=== PATIENT | female | born 1980 | race Caucasian/White ===

== ENCOUNTER 2024-07-05 14:11 | Emergency (ER) | payer OTHER, SELFPAY ==
--- OUTSIDE RECORDS SUMMARY | 2024-07-05 14:21 | XMS_ITS | Continuity of Care Document ---
Author Organization [facility] Address [address] [facility] [facility] [address] [phone] Care Team Providers Care Manager Search Name Role Phone Karen Díaz Primary Care Physician Encounter [facility] Financial Number [id number] Date(s): 04/07/23 - 04/07/23 [facility] [address] [phone] Encounter Diagnosis Anxiety and depression(Discharge Diagnosis) - 04/07/23 LEVI (obstructive sleep apnea)(Discharge Diagnosis) - 04/07/23 Hypothyroidism(Discharge Diagnosis) - 04/07/23 GERD (gastroesophageal reflux disease)(Discharge Diagnosis) - 04/07/23 Discharge Disposition: Home or Self Care Attending Physician: Karen Díaz DO Allergies, Adverse Reactions, Alerts Substance Reaction Severity Status gabapentin Physical aggression: aggressive or combative to self and others (for example, hits self, throws objects, punches, dangerous maneuvers with wheelchair or other objects) Combative reaction Active Assessment and Plan Future Appointments Appointment Date:06/10/2023 11:00:00 AM Scheduled Provider:Karen Díaz DO Location:[facility] Appointment Type:CC EP Established Patient Immunizations Given and Recorded Vaccine Date Status Refusal Reason SARS-CoV-2 (COVID-19) mRNA BNT-162b2 vax 04/24/21 Recorded SARS-CoV-2 (COVID-19) mRNA BNT-162b2 vax 04/03/21 Recorded Medications albuterol 90 mcg/inh inhaler 2 puff(s), Inhalation, g1lbcms, PRN, 1 each, Inhaler, 11, 11, shortness of breath, Route to Pharmacy Electronically, [id number], [id number]_[id number], 170, cm, 01/02/2021 0936, Height, 137.8, kg,01/02/2021 0936, Weight Start Date: 01/02/21 Status: Ordered DULoxetine 60 mg oral capsule 60 mg, 1 capsule(s), Oral, daily, 30 capsule(s), Capsule(s), 5, 5, [id number] [id number], 168, cm, 03/14/23 13:03:00 CDT, Height, 1 40.5, kg, 03/14/23 13:03:00 CDT, Weight Start Date: 03/14/23 Status: Ordered ibuprofen 200 mg oral tablet 2-4 tablets, Oral, [id number], PRN, 120 tablet(s), Tablet(s), 0, for pain Start Date: 03/14/23 Status: Ordered levothyroxine 75 mcg (0.075 mg) oral tablet 1 tablet(s), Oral, daily before breakfast, 30 tablet(s), 5, 5, [id number] [id number], 168, cm, 03/14/23 13:03:00 CDT, Height, 140.5, kg, 03/14/23 13:03:00 CDT, Weight Start Date: 03/14/23 Status: Ordered Gauri 0.25mg-35mcg oral tablet 1 tablet(s), Oral, daily, 84 tablet(s), 3, 3, [id number] NCPDP_[id number], 176, cm, 09/07/2022 1456, Height, 137.2, kg, 09/07/2022 1456, Weight Start Date: 09/10/22 Status: Ordered omeprazole 20 mg oral delayed release tablet 20 mg, 1 tablet(s), Oral, daily, 0 Start Date: 02/17/22 Status: Ordered Vitamin D3 5000 intl units oral capsule 5,000 unit(s), 1 capsule(s), Oral, daily, 90 capsule(s), Capsule(s), 3, 3, Route to Pharmacy Electronically, [facility][id number], [id number]_[id number], 175, cm, 02/17/2022 1439, Height, 143, kg, [id number], Weight Start Date: 03/03/22 Status: Ordered Problem List Condition Confirmation Course Effective Dates Status H ealth Status Informant Allergic rhinitis Confirmed Active BMI 40.0-44.9, adult Confirmed Active Obesity, Class III, BMI 40-49.9 (morbid obesity) Confirmed Active Low HDL (under 40) Confirmed Active Chronic back pain Confirmed Active Osteoarthritis, hand Confirmed Active Diarrhea Confirmed Active Electrolyte and fluid disorder Confirmed Active CRP elevated Confirmed Active Exercise-induced asthma Confirmed Active GERD (gastroesophageal reflux disease) Confirmed Active Bilateral hand pain Confirmed Active Hyperlipidemia Confirmed Active Hyperuricemia Confirmed Active Hypothyroidism Confirmed Active Metabolic syndrome Confirmed Active Class 3 obesity Confirmed Active Obstructive sleep apnea Confirmed Active LEVI (obstructive sleep apnea) Confirmed Active Exercise counseling Confirmed Active Dietary counseling and surveillance Confirmed Active Encounter for long-term current use of medication Confirmed Active Left shoulder pain Confirmed Active Hepatic steatosis Confirmed Active Stress Confirmed Active Hypovitaminosis D Confirmed Active Procedures Procedure Date Related Diagnosis Body Site Status Colonoscopy 2019 Completed Excision of uterine polyp [address] [place] [address] Vital Signs Most recent to oldest [Reference Range]: 1 Temperature Temporal Artery [35.8-38 Deg C] 36.2 DegC (04/07/23 2:55 PM) Peripheral Pulse Rate [60-100 bpm] 74 bp m (04/07/23 2:55 PM) Respiratory Rate [14-22 br/min] 16 br/mi n (04/07/23 2:55 PM) Blood Pressure [89-139/60-90 mm Hg] 108/ 68mm Hg (04/07/23 2:55 PM) Oxygen Flow Rate 0 L/min (04/07/23 2:55 PM) Height 170 cm (04/07/23 2:55 PM) Weight 140.9 kg (04/07/23 2:55 PM) Social History Social History Type Response Alcohol Former alcohol user, Household alcohol concerns: No. Substance Abuse Never drug user, [facility] substance abuse concerns: No. Smoking Status Former smoker;Never; Tobacco Cessation Counseling Requested N/A; Concerns about tobacco use in household: No; Smoker in household: No; Number of years: 2; entered on: 05/07/22 Sex Hospital Discharge Instructions Patient Education 04/07/2023 15:17:12 Continuous Positive Airway Pressure (CPAP) Continuous Positive Airway Pressure (CPAP) Your healthcare provider has prescribed continuous positive airway pressure (CPAP) therapy for you.A CPAP??device helps you breathe better at night. The device sends air through your nose or mouth when you breathe in. This keeps your air passages open. CPAP is: ???Used most often to treat sleep apnea and some other problems. Sleep apnea is a long-term (chronic) condition. You have periods of sleep where you briefly stop breathing. ???Safe and works well. But it takes time to get used to the mask. Your healthcare provider, nurse, or medical supplier will give you tips for wearing and caring for your CPAP device. General guidelines Advice includes the following: ???It's very important not to??give up! It takes time to get used to wearing the mask at night. ???Practice using your CPAP device during the day. Do this whenever you take a nap. ???Remember, there are several different types of masks. If you can???t get used to your mask, ask your provider or medical supply company about trying another style. ???If you have nasal stuffiness or dryness when using your CPAP device, talk with your provider or medical supply company. There are ways to ease these problems. For example, your provider may adviseusing a moistening nasal spray. Or the medical supply company may advise a device with a humidifier. ???The goal is to use your??CPAP all night, every night, and during all naps. Use it even when you travel. ???Keep your mask clean. Wash it with soap and water. Be sure to rinse the mask and tubing well with water to remove any soap. Let them air-dry fully before using. ???Make yourself comfortable when sleeping with CPAP. Try using extra pillows. Work with your [employer] supply company so that you know how to correctly use your CPAP. The company's tax representative will be able to help you: ???Use the CPAP correctly ???Troubleshoot any problems that come up ???Learn to clean and maintain the device ???Get used to regular use of the CPAP ?? The CPAP device settings are given as centimeters of water (cm/H2O). Each person???s pressure settings are different. Your healthcare provider will tell you what settings to use. Never change your CPAP pressure setting unless your provider tells you to. CPAP cm/H20 pressure when you breathe in ?? The [employer]. All rights reserved. This information is not intended as a substitute for professional medical care. Always follow your healthcare professional's instructions. 04/07/2023 15:17:10 Healthy Sleep Habits Healthy Sleep Habits What is normal sleep? The normal amount of sleep varies depending on your child's age. Age Average nighttime sleep Average daytime sleep to 3 months 8 to 9 hours(waking through the night to feed) 8 hours 6 to 12 months 10 to 12 hours (often sleeps through the night) 5 hours 2 years 10 to 12 hours 4 hours (fewer naps after 12 months of age) 3 years 10 hours 1 hour 4 to 6 years 10 hours Often no nap Helpful tips for healthy sleep habits Here are some helpful tips for creating good sleep habits for your child: ???Newborns don't have a set night or day schedule for the first few weeks of life. It's best for anewborn not to sleep longer than 5 hours at a time in the first 5 to 6 weeks, as their small bodiesneed frequent feedings. ???Older babies and children should have a consistent nap time and bedtime schedule. ???Start a quiet time, such as listening to soft music or reading a book, 20 to 30 minutes before bedtime. Put away any screens during quiet time. This means no TV, smartphones, tablets, or computers. ???After quiet time, follow a bedtime routine, such as a diaper change, going to the bathroom, and brushing teeth. ???Set a time limit for quiet time and the routine so it doesn't drag on and your child knows what to expect before bedtime. ???Say cj, turn off the light, and leave the room. ???Security objects, such as a special blanket or stuffed animal, can be part of the bedtime routine. ???It's important for children to be put to bed awake so they learn to fall asleep themselves. ???Don't put babies to bed with a bottle. It causes problems with tooth decay and ear infections. Helpful tips for children with poor sleep habits Children can easily fall into bedtime habits that are not always healthy habits. The following suggestions can help when a child doesn't want to go to bed or is having trouble staying in bed: ???If your child cries, speak calmly and reassure them, You are fine. It's time to go to sleep. Then leave the room. ???Don't give a bottle or pharmacy picking tech your child. ???Stretch out the time between trips to the room if your child continues. Don't do anything but talk calmly and leave. ???Your child will calm down and go to sleep if you stick to this routine. It may take several nights for your child to get used to the new plan. ???If your child is used to getting a large amount of milk right at bedtime, start to cut down the amount of milk in the bottle by 1/2 to 1 ounce each night until the bottle is empty. Then take it away completely. ???Sometimes children get out of their routine of night sleeping because of an illness or travel. Quickly return to good sleep habits when things are back to normal. Sometimes older children go through a stage when they revert back to bad sleep habits or develop new problems in going to sleep. Here are some tips to help parents with older children who have problems going to bed: ???If your child gets out of bed, take them back to bed with a warning that the door will be shut (not locked) for??1 or??2 minutes if they get out of bed. ???If your child stays in bed, the door stays open. If your child gets out of bed, the door is closed for??2 minutes. Your child can understand that they have control of keeping the door open by staying in bed. ???If your child gets out again, shut the door for??3 to??5 minutes (no more than??5 minutes). ???Be consistent. Put your child back in bed each time they get out of bed. ???When your child stays in bed, open the door and give them praise (for example, You are doing a great job of staying in bed. Cj. ???Your child can be rewarded by earning a star on a calendar for staying in bed all night. You cangive a special prize for a certain number of stars earned. Reducing the risk for SIDS (sudden syndrome) and other sleep- related deaths Here are recommendations from the [place] [employer] (AAP) on how to reduce the risk for??sudden syndrome (SIDS) and sleep-related deaths from to age 1: ???Make sure your baby is immunized. An infant who is fully immunized reduces their risk for SIDS.?Breastfeed your baby. The AAP advises breastmilk only for at least the first 6 months.?Place your baby on their back for all sleeping until they are 1 year old. This can decrease the risk for SIDS, getting food or milk into the lungs (aspiration), and choking. Never place your baby on their side or stomach for sleep or naps. If your baby is awake, allow your child time on their tummy as long as you are supervising, to decrease the chances that your child will develop a flat head. ???Always talk with your baby's doctor before raising the head of the crib if they have been diagnosed with gastroesophageal reflux. ???Offer your baby a pacifier for sleeping or naps if they aren't breastfed. If , delay introducing a pacifier until has been firmly established. ???Use a firm mattress (covered by a tightly fitted sheet) to prevent gaps between the mattress andthe sides of a crib, a play yard, or a bassinet. This can decrease the risk for entrapment, suffocation, and SIDS. ???Share your room instead of your bed with your baby. Putting your baby in bed with you raises therisk for strangulation, suffocation, entrapment, and SIDS. Bed sharing is not advised for twins or other higher multiples. The AAP advises that babies sleep in the same room as their parents, close to their parent's bed, but in a separate bed or crib appropriate for babies. This sleeping arrangement is advised ideally for the baby's first year. But it should at least be done for the first 6 months. ???Don't use infant seats, car seats, strollers, infant carriers, and infant swings for routine sleep and daily naps. These may lead to blockage of an 's airway or suffocation. If your baby falls asleep in the car, don't be tempted to leave them in the car seat when you get home. Put your baby in the crib as soon as you get home. ???Don't place babies on a couch or armchair for sleep. Sleeping on a couch or armchair puts the baby at much higher risk of , including SIDS. ???Don't use illegal drugs and alcohol. Don't smoke during or after . ???Don't smoke. And keep your baby away from others who are smoking and places where others smoke. Don't let anyone smoke in your house. ???Don't over-bundle, overdress, or cover your baby's face or head. This will prevent them from getting overheated, reducing the risks for SIDS. ???Don't use loose bedding or soft objects. Bumper pads, pillows, comforters, and blankets shouldn't be used in an infant's crib or bassinet to help prevent suffocation, strangulation, entrapment, orSIDS. ???Don't use cardiorespiratory monitors and commercial devices. Wedges, positioners, and special mattresses shouldn't be used to help decrease the risk for SIDS and sleep-related deaths. ???Always place cribs, bassinets, and play yards in hazard-free areas. Keep them away from danglingcords, wires, or window coverings to reduce the risk??for strangulation.?Prevent all exposure to smoke, alcohol, and illegal drugs. ?? 5042-3952 The [employer]. All rights reserved. This information is not intended as a substitute for professional medical care. Always follow your healthcare professional's instructions. 04/07/2023 15:17:09 Hypothyroidism Hypothyroidism You have hypothyroidism. This means your thyroid gland is not making enough thyroid hormone. This hormone is vital to body growth and metabolism. If you don???t make enough, many body processes slow down. This can cause symptoms throughout the body. Hypothyroidism can range from mild to severe. Themost severe form is called myxedema. There are a number of causes of hypothyroidism. A common cause is Ariella???s disease. This disease causes the body???s own immune system to attack the thyroid gland. When you have certain treatments, such as surgery to remove the thyroid gland, this can also cause hypothyroidism. Sometimes the thyroid gland is not functioning because of lack of stimulation from the pituitary gland. Symptoms of hypothyroidism can include: ???Fatigue ???Trouble concentrating or thinking clearly; forgetfulness ???Dry skin ???Hair loss ???Weight gain ???Low tolerance to cold ???Constipation ???Depression ???Personality changes ???Tingling or prickling of the hands or feet ???Heavy, absent, or irregular periods (women only) Older adults may sometimes have other symptoms. These can include: ???Muscle aches and weakness ???Confusion ???Incontinence (unable to control urine or stool) ???Trouble moving around ???Falling Treatment for hypothyroidism involves taking thyroid hormone pills daily. These pills replace the hormone your thyroid doesn???t make. You will likely??need to take a daily pill for the rest of your life. Tips for taking this medicine are given below. Home care Tips for taking your medicine ???Take your thyroid hormone pills as prescribed by your healthcare provider. This is most often 1 pill a day on an empty stomach. Use a pillbox labeled with the days of the week. This will help you remember to take your pill each day. ???Don???t take products that contain iron and calcium or antacids within 4 hours of taking your thyroid hormone pills. ???Don???t take other medicines with your thyroid hormone pill without checking with your provider first. ???Tell your provider if you have any side effects from your medicines that bother you, especially any chest pain or irregular heartbeats. ???Never change the dosage??or stop taking your thyroid pills without talking to your provider first. General care ???Always talk with your provider before trying other medicines or treatments for your thyroid problem. ???If you see other healthcare providers, be sure to let them know about your thyroid problem. ???Let your healthcare provider know if you become because your dose of thyroid hormone will need to be adjusted. Follow-up care See your healthcare provider for checkups as advised. You may need regular tests to check the levelof thyroid hormone in your blood. When to seek medical advice Call your healthcare provider right away if any of these occur: ???New symptoms develop ???Symptoms return, continue, or worsen even after treatment ???Extreme fatigue ???Puffy hands, face, or feet ???Fast or irregular heartbeat ???Confusion Call 911 Call 911 if any of these occur: ???Fainting ???Chest pain ???Shortness of breath or trouble breathing ?? 1116-5529 [employer]. All rights reserved. This information is not intended as a substitute for professional medical care. Always follow your healthcare professional's instructions. 04/07/2023 15:17:08 Anxiety Reaction Anxiety??Reaction Anxiety is the feeling we all get when we think something bad might happen. It is a normal responseto stress and normally causes only a mild reaction. When anxiety becomes more severe, it can??interfere with daily life. In some cases, you may not even be aware of what you???re anxious about. Theremay also be a genetic link. Or it may be a learned behavior in the home. Both psychological and physical triggers cause stress reaction. It's often a response to fear or emotional stress, real or imagined. This stress may come from home, family, work, or social relationships. During an anxiety reaction, you may feel: ???Helpless ???Nervous ???Depressed ???Grouchy Your body may show signs of anxiety in many ways. You may experience: ???Dry mouth ???Shakiness ???Dizziness ???Weakness ???Trouble breathing ???Breathing fast (hyperventilating) ???Chest pressure ???Sweating ???Headache ???Nausea ???Diarrhea ???Tiredness ???Inability to sleep ???Sexual problems Home care ???Try to find the sources of stress in your life. They may not be obvious. These may include: oDaily hassles of life (such as traffic jams, missed appointments, or car troubles) oMajor life changes, both good (new baby or job promotion) and bad (loss of job or loss of loved one) oOverload (feeling that you have too many responsibilities and can't take care of all of them at once) oFeeling helpless or feeling that your problems can't be solved ???Notice how your body reacts to stress. Learn to listen to your body signals. This will help you take action before the stress becomes severe. ???When you can, do something about the source of your stress. (Avoid hassles, limit the amount of change that happens in your life at one time, and take a break when you feel overloaded). ???Unfortunately, many stressful situations can't be avoided. It is necessary to learn how to better manage stress. There are many proven methods that will reduce your anxiety. These include simple things such as exercise, good nutrition, and adequate rest. Also, there are certain techniques that are helpful: oRelaxation oBreathing exercises oVisualization oBiofeedback oMeditation For more information about this, talk with your healthcare provider. Or check online or at your local library or bookstore. You'll find many books and audiobooks on this subject. Follow-up care If you feel your anxiety is not responding to self-help measures, call your healthcare provider or make an appointment with a counselor. You may need short- term psychological counseling or medicine to help you manage stress. Call 911 Call 911 if any of these happen: ???Trouble breathing ???Confusion ???Drowsiness or trouble waking up ???Fainting or loss of consciousness ???Rapid heart rate ???Seizure ???New chest pain that becomes more severe, lasts longer, or spreads into your shoulder, arm, neck,jaw, or back When to get medical advice Call your healthcare provider right away if any of these happen: ???Your symptoms get worse ???Severe headache not eased by rest and mild pain reliever ?? 2591-3378 The [employer]. All rights reserved. This information is not intended as a substitute for professional medical care. Always follow your healthcare professional's instructions. Note * Event Display: Patient Provided Clipboard Authored Date: [id number] Ambulatory Comprehensive Intake Ambulatory Comprehensive IntakeOriginating Source: PATIENTOriginating Author: KAYLA Cerna Submission Date: October 03, 2020 9:45:07 AM -06:00 KAYLA METZGER : 1980 Sex: Female MRN(s): [id number] Ambulatory Comprehensive Intake Question Response Advance Directive Advance Directive Date Location of Advance Directive Type of Advance Directive Patient has Court Appointed Guardian No Location of Court Appointed Guardian Documentation Legal Guardian Medical Power of Operating Room Manager Name Patient Requests Counseling Regarding Advance Directives History of Falling in Last 3 Months, Including Since Admission No Impaired Judgment/Lack of Safety Awareness No Agitation No Impaired Gait, Shuffle, Wide Base, Unsteady Walk No Ever Experience Dizziness or Vertigo No Ever Wet or Soil Yourself on Way to Bathroom No Medical Devices None Market Development Trainer Card Other Market Development Trainer Details Radiology Testing Barriers/Precautions None Menstrual Status Last Menstrual Period 2020-09-12 Previous LMP Date Last Menstrual Period Description Irregular periods, Heavy flow Menarche Onset Menarche Frequency Menarche Length Menstrual Comments PAP result HPV Coping Stressors Emotional Support Available Do You Receive Comfort From Spiritual Practices No [facility] Preference Spiritual Practice Comments Weight Change >10lbs Yes Fever No Fatigue Yes Difficulty Sleeping Yes Blood Transfusion No Blood in semen/sperm (men) No Inability to have an erection Inability to reach climax Infertility Painful intercourse Decreased sexual desire Sexually Transmitted Diseases ROS Visual Changes (Not Glasses) Dizziness No Double vision No Sinus problems Yes Frequent persistent nosebleeds No Ear pain No Trouble hearing No Ringing in Ears No Hoarseness Yes Persistent sore throat No Mouth sores No Swollen glands (Frequent) No Breast pain/lumps No Pelvic Pain No Vaginal discharge No Vaginal dryness No Frequent sweats/hot flashes No Menstrual problems Yes Menopause No Problems No Baby weighing 9lbs or more No Stop breathing during sleep No Shortness of Breath No Coughing up blood No Wheezing No Cough No Sore Throat No Gout No Back Pain (Major) No Neck Pain (Major) No Weakness of arm or leg No Joints Swelling/Stiffness Yes Deformities of Back/Extremities No Chest pain/tightness No Irregular rapid heart beat No Smothering feeling at night No Ankle swelling No Numbness or tingling No Severe frequent headaches No Abnormal coordination No Trouble with speech No Forgetfulness/confusion No Black/Bloody stools No Nausea/Vomiting (Frequent) No Frequent heart burn/acid (GERD) Yes Abdominal pain No Diarrhea (Frequent) Yes Constipation No Difficulty swallowing No Vomiting blood No Changes in hair/hair loss No Major skin problems No Wounds that will not heal No Persistent rash No Changes in moles No UTI No Urinary Incontinence No Urinary Hesitancy No Urinary Urgency No Frequent Urination No Nocturia No Dysuria No Hematuria No Urinary Retention No Feeling blue/discouraged Yes High anxiety/stress Yes Loss of friends No Feeling life has no purpose No Feeling others are talking about you Yes Feeling fear Yes Hearing voices No Marital or relationship problems No 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 Was previously on Vitamin D, thyroid med and control. May need anti- depressant - have taken duloxetine in the past.Also want to discuss weight gain. Pain Present Yes actual or suspected pain Numeric Rating Pain Scale 3 Primary Pain Location Generalized Primary Pain Comments Was dx with fibromyalgia years ago. Duloxetine had helped a bit. Gabapentin cannot be prescribed - I apparently get mean. I also was dx about a year ago with arthritis in my hands. Also more pain in back and knees since recent weight gain. Internal medicine Outpatient Note * Karen Díaz DO: PERFORM Event Display: Internal Medicine Office/Clinic Note Authored Date: [id number] Patient Information Name:KAYLA MARTIN Address: [address] [place] [phone] Sex:Female Date of :1980 Emergency Contact:LUCAS MARTIN Location:[facility] Registration Date and Time:04/07/2023 15:00 CDT Primary Care Physician: Karen Díaz DO, Attending Physician: Karen Díaz DO, Chief Complaint Mood f/u History of Present Illness Patient is a 42 y.o. female here to follow up on: 1) Anxiety and depression- at her last visit her duloxetine was increased from 30mg to 60mg. She isstill struggling with her work.?? She is looking for a new job and had a good phone interview. She is planning to quit after the semester ends in three weeks.?? 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 Her PHQ9 score is 14 today, down from 24. 2) ELVI-She has struggled with her APAP.?? Her is very worried about her apneic spells. She wants to call medical supply to try a different mask.?? Last night was the first night she slept allnight with her mask on. 3) Thyroid- TSH Latest Result TSH, Highly Sensitive: 3 uIU/mL (10/21/22)?? She is currently on levothyroxine 75mcg. She is still feeling down and fatigued at times. 4) GI-she has an EGD scheduled for this fall.?? She felt it was a good consult. Review of Systems ?CONSTITUTIONAL ? Fever?No.? Chills?No.?? Fatigue?Yes.?? Decreased appetite?No.?? Have you lost or gained weight in the past year?Yes.?? Recent Illness?No.? EYES ? Change in Vision?No.?? Glasses or contacts?Yes.? ENT ? Problems hearing?No.?? Ear pain?No.?? Sore Throat?No.?? Hoarse voice?No.? Sinus pain?Yes.?? Post nasal drip?No.?? Runny nose?No.?? Congestion?No.?Allergies-YES ? CARDIOVASCULAR ? Chest Pain?No.?? Swelling in Legs?No.?? Skipping heart beats?No.?? Palpitations?No? RESPIRATORY ? Cough?No.?? Shortness of Breath while resting?No.? GASTROINTESTINAL ? Blood in stool?No.?? Constipation?No.?? Diarrhea?Yes.?? Swallowing problems?No.?? Reflux?Yes.?? Nausea?No.?? Vomiting?No.?? Abdominal pain?No.? GENITOURINARY ? Problems urinating?No.? NEUROLOGY ? Dizziness?No.?? Headaches?No.?Snoring-YES ? PSYCHIATRIC ? Depression?Yes.?? Feel like hurting someone?No.?? Feel like hurting yourself?No.?? Problems with memory?No.?? Anxiety?Yes.?? Problems concentrating?No.?? Problems sleeping?Yes.?? Vitals and Measurements Vital Signs Height: 170 cm Height Inches Conversion: 66.9 Weight: 140.9 kg Weight in Pounds (kg conversion): 310 Body Surface Area: 2.5795 m2 Body Mass Index: 48.75 kg/m2 Temperature Temporal Artery: 36.2 DegC Systolic Blood Pressure: 108 mm Hg Diastolic Blood Pressure: 68 mm Hg Peripheral Pulse Rate: 74 bpm Respiratory Rate: 16 br/min Oxygen Saturation: 97 % Oxygen Flow Rate: 0 L/min HRA Pain Present: No Physical Exam GENERAL APPEARANCE: well developed and well nourished, in no acute distress. EYES: sclera clear. HEENT: Head - normocephalic/atraumatic, CARDIOVASCULAR: regular rate and rhythm, normal S1S2, no murmurs, click or rubs. RESPIRATORY: normal breath sounds, no wheezes, rhonchi, rales. GASTROINTESTINAL: soft, bowel sounds: normal, no masses palpated, no hepatosplenomegaly, not tender, non-distended. NEUROLOGIC EXAM: alert and oriented x 3. SKIN: unremarkable. PSYCH: appropriate mood and affect.?? Good insight and judgement.?? Assessment/Plan 1.??Anxiety and depression Chronic.?? Improving.?? Still not at personal goal.?? Will continue on 60mg of duloxetine. Try meditation, yoga, writing in a journal or making a video journal, and stress management.?? Daily exercise may help augment mood treatment.?? Recommend seeing a counselor as well to help manage mood. Call 911 or seek emergency medical care for thoughts of SI/HI. Ordered: .59061 Office Visit Level 4 Est ?? 2.??LEVI (obstructive sleep apnea) Chronic.?? Not well controlled.?? Not tolerating the APAP.?? Will recommend getting a new mask fromthe medical supply. Ordered: .81105 Office Visit Level 4 Est ?? 3.??Hypothyroidism Stable.?? Chronic.?? Asymptomatic. Please continue to take your medication first thing in the morning with water only.?? Avoid other medications, dairy products, or supplements for at least 30 minutes. Please let us know if you start to experience: unintentional weight changes, heat or cold intolerance, palpitations/racing heart, anxiety, depression, changes in sleep habits, swelling, diarrhea, or constipation.?? Please let us know if you have noted any swelling of the eyes, hair loss, or nail changes.?? Ordered: .32165 Office Visit Level 4 Est ?? 4.??GERD (gastroesophageal reflux disease) Chronic.?? Not well controlled.?? Planning on an EGD with GI later this fall. Keep a diary of symptoms.?? Avoid triggers: laying down after eat, eating a large or heavy meal, wearing tight clothing around the upper abdomen, eating spicy or highly acidic foods, alcohol, caffeine, mint, and chocolate, and NSAIDs.?? For daily symptoms, may need to try an H2 maxx or PPI daily.?? Additionally, may benefit from seeing a sand blaster and getting an EGD if symptoms are not able to be well controlled with lifestyle changes and medications.?? For intermittent (1-2x month)symptoms, may try rolaids or tums for symptom relief.?? Call 911 or seek emergency medical care for gross blood in the stool, black stools (melena), or hematemesis (throwing up what looks like blood/coffee grounds).? Ordered: .[id number] Office Visit Level 4 Est ?? Follow Up Follow Up with??Karen Díaz DO When??Within 1 month [facility] [address] [facility] [place] [address]- Problem List/Past Medical History Ongoing Allergic rhinitis Bilateral hand pain BMI 40.0-44.9, adult Chronic back pain Class 3 obesity CRP elevated Diarrhea Dietary counseling and surveillance Electrolyte and fluid disorder Encounter for long-term current use of medication Exercise counseling Exercise-induced asthma GERD (gastroesophageal reflux disease) Hepatic steatosis Hyperlipidemia Hyperuricemia Hypothyroidism Hypovitaminosis D Left shoulder pain Low HDL (under 40) Metabolic syndrome Obesity, Class III, BMI 40-49.9 (morbid obesity) Obstructive sleep apnea LEVI (obstructive sleep apnea) Osteoarthritis, hand Stress Historical BMI 45.0-49.9, adult Procedure/Surgical History ???Colonoscopy (2019)???Excision of uterine polyp (2015) Medications Unchanged albuterol (albuterol 90 mcg/inh inhaler)2 puff(s) Inhalation every 4 hours as needed shortness of breath. Refills: 11. cholecalciferol (Vitamin D3 5000 intl units oral capsule)1 capsule(s) By mouth daily. Refills: 3. DULoxetine (DULoxetine 60 mg oral capsule)1 capsule(s) By mouth daily. Refills: 5. ethinyl estradiol-norgestimate (Gauri 0.25mg-35mcg oral tablet)1 tablet(s) By mouth daily. Refills: 3. ibuprofen (ibuprofen 200 mg oral tablet)2-4 tablets By mouth every 8 hours as needed for pain. levothyroxine (levothyroxine 75 mcg (0.075 mg) oral tablet)1 tablet(s) By mouth daily before breakfast. Refills: 5. omeprazole (omeprazole 20 mg oral delayed release tablet)1 tablet(s) By mouth daily. 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 Workplace hazards: Sitting toomuch., 10/02/2020 Home/Environment Lives with Spouse. Living situation: Home/Independent. Alcohol abuse in household: No. Substance abuse in household: No. Feels unsafe at home: No., 04/29/2021 Nutrition/Health Type of diet: Poor, but trying to eat better. Caffeine intake amount: Soda,Tea: 2-3x's/wk. Diet restrictions: None., 10/02/2020 Oral Health 2yrs ago-no concerns, 10/02/2020 Sexual Sexually active: Yes. Sexual orientation: Heterosexual. Uses condoms: No., 10/02/2020 Substance Abuse Never drug user, Household substance abuse concerns: No., 03/14/2023 Tobacco Former smoker, Smokeless Tobacco use: Never. N/A Cessation Counseling. 2 year(s). Household tobaccoconcerns: No. Smoker in household: No., 05/07/2022 Family History ?Father ?Positive ?Hyperlipidemia ?Father ?Positive ?Hypertension ?Father ?Positive ?Diabetes ?Sister ?Positive ?Crohn's disease ?Grandmother ?Positive ?Dementia ?Grandfather ?Positive ?Cancer ?Grandmother ?Positive ?Cancer ?Grandfather ?Positive ?Diabetes ?Grandfather ?Positive ?Heart disease ?Mother ?Positive ?Snoring ?Father ?Positive ?Snoring ?Sister ?Positive ?Snoring ?Brother ?Positive ?Snoring ?Father ?Positive ?Diabetes mellitus ? POC Results Event Name?? Event Result?? Date/Time?? Oxygen Flow Rate 0 L/min 04/07/23 14:55:00 Oxygen Saturation 97 % 04/07/23 14:55:00 ? Voice to Text Technology Disclaimer This note may contain text inserted via Dragon or other voice to text assistive technology and stripper and taper, variances may occur. Patient Care team information Care Team Personnel Name: Karen Díaz DO Position: Physician - Internal Medicine Member Role: Primary Care Physician Address: Address: [address] [place] [phone] Name: Anel Man C Position: AMB SHIPPING LEAD PERSON/PA Member Role: Nurse Practitioner Address: Address: [address] [facility] [address] [place] [phone] Name: Berenice Ivory Electrical Contacts Adjuster Position: Population Health Coordinator Member Role: Population Health Coordinator Name: Karen Díaz DO Position: Physician - Internal Medicine Med Service: Gun Repair Clerk Manager Search Role: Attending Physician Address: Address: [address] [place] [address] [address] [place], [place] [id number] Care Team Related Persons Name: LUCAS MARTIN Address: home [address] [facility], [phone]
--- OUTSIDE RECORDS SUMMARY | 2024-07-05 14:21 | XMS_ITS | Continuity of Care Document ---
Author Organization [place] [facility] Address [address] [facility] [address] [phone] Care Team Providers Care Churn Driller Helper Name Role Phone Karen Díaz Primary Care Physician Encounter [facility] Financial Number [id number] Date(s): 05/16/24 - 05/16/24 Leann Davison [facility] [address] [phone] Discharge Disposition: Home or Self Care Allergies, Adverse Reactions, Alerts Substance Criticality Severity Reaction Reaction Severity Status gabapentin Physical aggres ada: aggressive or combative to self and others (for example, hits self, throws objects, punches, dangerous maneuvers with wheelchair or other objects) Combative reaction Active Assessment and Plan Future Appointments Appointment Date:07/30/2024 01:30:00 PM Scheduled Provider:Anabelle Kaufman LINER INSTALLER Location:[facility] Appointment Type:CC EP Established Patient Immunizations Given and Recorded Vaccine Date Status Refusal Reason rabies vaccine, human diploid cell 03/30/24 Record ed rabies vaccine, human diploid cell 03/23/24 Record ed SARS-CoV-2 (COVID-19) mRNA BNT-162b2 vax 04/24/21 Recorded SARS-CoV-2 (COVID-19) mRNA BNT-162b2 vax 04/03/21 Recorded Medications albuterol 90 mcg/inh inhaler 2 puff(s), Inhalation, [id number], PRN, 1 each, Inhaler, 11, 11, shortness of breath, Route to Pharmacy Electronically, [facility]/pharmacy #[id number], NCPDP_[id number], 170, cm, 01/02/2021 0936, Height, 137.8, kg,01/02/2021 0936, Weight Start Date: 01/02/21 Status: Ordered DULoxetine 60 mg oral capsule 60 mg, 1 capsule(s), Oral, daily, 30 capsule(s), Capsule(s), 5, 5, Route to Pharmacy Electronically, [facility] [place] [facility], [id number], 176, cm, 04/24/24 13:28:00 CDT, Height, 139.5, kg, 04/24/24 13:28:00 CDT, Weight Start Date: 04/24/24 Status: Ordered ibuprofen 200 mg oral tablet 2-4 tablets, Oral, [id number], PRN, 120 tablet(s), Tablet(s), 0, for pain Start Date: 03/14/23 Status: Ordered levothyroxine 75 mcg (0.075 mg) oral tablet 1 tablet(s), Oral, daily before breakfast, 30 tablet(s), 5, 5, Route to Pharmacy Electronically, [facility] [place] [facility], [id number], 176, cm, 02/10/24 10:50:00 CDT, Height, 143.18, kg, 02/10/24 10:50:00 CDT, Weight Start Date: 02/10/24 Status: Ordered Gauri 0.25mg-35mcg oral tablet 1 tablet(s), Oral, daily, 84 tablet(s), 3, 3, Route to Pharmacy Electronically, [facility] [place] [facility], [id number], 176, cm, 12/09/23 10:52:00 CDT, Height, 143.8, kg, 12/09/23 10:52:00 CDT, Weight Start Date: 12/09/23 Status: Ordered omeprazole 20 mg oral delayed release tablet 20 mg, 1 tablet(s), Oral, daily, 90 tablet(s), Tab EC, 3, 3, Route to Pharmacy Electronically, [facility] [place] [facility], [id number], 176, cm, 02/10/24 10:50:00 CDT, Height, 143.18, kg, 02/10/24 10:50:00 CDT, Weight Start Date: 02/10/24 Status: Ordered Vitamin D3 5000 intl units oral capsule See Instructions, 30 capsule(s), 0, TAKE 1 CAPSULE BY MOUTH DAILY, Route to Pharmacy Electronically, [id number], [id number], Instructions Replace Required Details, 176,cm, 02/10/24 10:50:00 CDT, Height, 143.18, kg, 02/10/24 10:50:00 CDT, Weight Start Date: 04/20/24 Status: Ordered Wellbutrin XL 150 mg/24 hours oral tablet, extended release 150 mg, 1 tablet(s), Oral, daily, 100 tablet(s), Tab SR 24 HR, 3, 3, Route to Pharmacy Electronically, [facility] [id number] [facility], [id number], 176, cm, 04/24/24 13:28:00 CDT, Height, 139.5, kg, 04/24/24 13:28:00 CDT, Weight Start Date: 04/24/24 Status: Ordered Problem List Condition Confirmation Course Effective Dates Status H ealth Status Informant Adult ADHD Confirmed Active Allergic rhinitis Confirmed Active De Quervain's tenosynovitis, bilateral Confirmed Active Obesity, Class III, BMI 40-49.9 (morbid obesity) Confirmed Active Bilateral carpal tunnel syndrome Confirmed Active Low HDL (under 40) Confirmed Active Chronic back pain Confirmed Active Osteoarthritis, hand Confirmed Active Diarrhea Confirmed Active Electrolyte and fluid disorder Confirmed Active CRP elevated Confirmed Active Exercise-induced asthma Confirmed Active GERD (gastroesophageal reflux disease) Confirmed Active Bilateral hand pain Confirmed Active Hyperlipidemia Confirmed Active Hyperuricemia Confirmed Active Hypothyroidism Confirmed Active Intolerant of cold Confirmed Active Metabolic syndrome Confirmed Active Class 3 obesity Confirmed Active Obstructive sleep apnea Confirmed Active LEVI (obstructive sleep apnea) Confirmed Active Heart palpitations Confirmed Active Exercise counseling Confirmed Active Dietary counseling and surveillance Confirmed Active Encounter for long-term current use of medication Confirmed Active Prediabetes Confirmed Active Left shoulder pain Confirmed Active Hepatic steatosis Confirmed Active Stress Confirmed Active Hypovitaminosis D Confirmed Active Procedures Procedure Date Related Diagnosis Body Site Status Colonoscopy 2019 Completed Excision of uterine polyp [address] [place] [address] Social History Social History Type Response Alcohol Former alcohol user, Household alcohol concerns: No. 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 Workplace hazards: Sitting too much. Home/Environment Lives with Spouse. L iving situation: Home/Independent. Alcohol abuse in household: No. Substance abuse in household: No. Feels unsafe at home: No. Nutrition/Health Type of diet: Poor, but trying to eat better. Caffeine intake amount: Soda,Tea: 2-3x's/wk. Diet restrictions: None. Sexual Sexually active: Yes . Sexual orientation: Heterosexual. Uses condoms: No. Substance Abuse Never drug user, Gilda ryne substance abuse concerns: No. Smoking Status Former smoker;Never; Tobacco Cessation Counseling Requested N/A; Concerns about tobacco use in household: No; Smoker in household: No; Number of years: 2; entered on: 06/10/23 Sex Note * Event Display: Patient Provided Clipboard Authored Date: [id number] Ambulatory Comprehensive Intake Ambulatory Comprehensive IntakeOriginating Source: PATIENTOriginating Author: KAYLA Cerna Submission Date: October 03, 2020 9:45:07 AM -06:00 KAYLA METZGER : 1980 Sex: Female MRN(s): [id number] Ambulatory Comprehensive Intake Question Response Advance Directive Advance Directive Date Location of Advance Directive Type of Advance Directive Patient has Court Appointed Guardian No Location of Court Appointed Guardian Documentation Legal Guardian Medical Power of Fiscal Assistant Name Patient Requests Counseling Regarding Advance Directives History of Falling in Last 3 Months, Including Since Admission No Impaired Judgment/Lack of Safety Awareness No Agitation No Impaired Gait, Shuffle, Wide Base, Unsteady Walk No Ever Experience Dizziness or Vertigo No Ever Wet or Soil Yourself on Way to Bathroom No Medical Devices None Phone Counselor Card Other Phone Counselor Details Radiology Testing Barriers/Precautions None Menstrual Status Last Menstrual Period 2020-09-12 Previous LMP Date Last Menstrual Period Description Irregular periods, Heavy flow Menarche Onset Menarche Frequency Menarche Length Menstrual Comments PAP result HPV Coping Stressors Emotional Support Available Do You Receive Comfort From Spiritual Practices No Anabaptism Preference Spiritual Practice Comments Weight Change >10lbs [...] voices No Marital or relationship problems No 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 Patient Care team information Care Team Personnel Name: Flammang, Karen C DO Position: Physician - Internal Medicine Member Role: Primary Care Physician Address: Address: [address] [place] [address] [place] [phone] [place] Care Team Related Persons Name: LUCAS MARTIN Address: [address], [phone]
--- OUTSIDE RECORDS SUMMARY | 2024-07-05 14:21 | XMS_ITS | Continuity of Care Document ---
Author Organization [facility] [place] Address [address] [facility] [address] [phone] Care Team Providers Care Camera Technician Name Role Phone Karen Díaz Primary Care Physician Encounter [facility] Financial Number [id number] Date(s): 04/24/24 - 04/24/24 [facility] [address] [address] [id number] Encounter Diagnosis Hypothyroidism(Discharge Diagnosis) - 04/24/24 Adult ADHD(Discharge Diagnosis) - 04/24/24 Anxiety and depression(Discharge Diagnosis) - 04/24/24 Fibromyalgia(Discharge Diagnosis) - 04/24/24 LEVI (obstructive sleep apnea)(Discharge Diagnosis) - 04/24/24 Heart palpitations(Discharge Diagnosis) - 04/24/24 Bilateral carpal tunnel syndrome(Discharge Diagnosis) - 04/24/24 De Quervain's tenosynovitis, bilateral(Discharge Diagnosis) - 04/24/24 Discharge Disposition: Home or Self Care Attending Physician: Karen Díaz DO Allergies, Adverse Reactions, Alerts Substance Criticality Severity Reaction Reaction Severity Status gabapentin Physical aggres ada: aggressive or combative to self and others (for example, hits self, throws objects, punches, dangerous maneuvers with wheelchair or other objects) Combative reaction Active Assessment and Plan Future Appointments Appointment Date:05/11/2024 08:45:00 AM Scheduled Provider:Vladimir Duke MD Location:[facility] Sleep Med Appointment Type:[facility] EP CPAP Established Patient Appointment Date:07/30/2024 01:30:00 PM Scheduled Provider:Anabelle Kaufman NP Location:[facility] Med Appointment Type:CC EP Established Patient Immunizations Given and Recorded Vaccine Date Status Refusal Reason rabies vaccine, human diploid cell 03/30/24 Record ed rabies vaccine, human diploid cell 03/23/24 Record ed SARS-CoV-2 (COVID-19) mRNA BNT-162b2 vax 04/24/21 Recorded SARS-CoV-2 (COVID-19) mRNA BNT-162b2 vax 04/03/21 Recorded Medications albuterol 90 mcg/inh inhaler 2 puff(s), Inhalation, [id number], PRN, 1 each, Inhaler, 11, 11, shortness of breath, Route to Pharmacy Electronically, [facility][id number][id number], 170, cm, 01/02/2021 0936, Height, 137.8, kg,01/02/2021 0936, Weight Start Date: 01/02/21 Status: Ordered DULoxetine 60 mg oral capsule 60 mg, 1 capsule(s), Oral, daily, 30 capsule(s), Capsule(s), 5, 5, Route to Pharmacy Electronically, [facility] [address] [facility], [id number], 176, cm, 04/24/24 13:28:00 CDT, Height, 139.5, kg, 04/24/24 13:28:00 CDT, Weight Start Date: 04/24/24 Status: Ordered ibuprofen 200 mg oral tablet 2-4 tablets, Oral, [id number], PRN, 120 tablet(s), Tablet(s), 0, for pain Start Date: 03/14/23 Status: Ordered levothyroxine 75 mcg (0.075 mg) oral tablet 1 tablet(s), Oral, daily before breakfast, 30 tablet(s), 5, 5, Route to Pharmacy Electronically, [facility] [address] [place] [facility], [id number], 176, cm, 02/10/24 10:50:00 CDT, Height, 143.18, kg, 02/10/24 10:50:00 CDT, Weight Start Date: 02/10/24 Status: Ordered Gauri 0.25mg-35mcg oral tablet 1 tablet(s), Oral, daily, 84 tablet(s), 3, 3, Route to Pharmacy Electronically, [facility] [address] [place] [facility], [id number], 176, cm, 12/09/23 10:52:00 CDT, Height, 143.8, kg, 12/09/23 10:52:00 CDT, Weight Start Date: 12/09/23 Status: Ordered omeprazole 20 mg oral delayed release tablet 20 mg, 1 tablet(s), Oral, daily, 90 tablet(s), Tab EC, 3, 3, Route to Pharmacy Electronically, [facility] [address] [place] [facility], [id number], 176, cm, 02/10/24 10:50:00 CDT, Height, 143.18, kg, 02/10/24 10:50:00 CDT, Weight Start Date: 02/10/24 Status: Ordered Vitamin D3 5000 intl units oral capsule See Instructions, 30 capsule(s), 0, TAKE 1 CAPSULE BY MOUTH DAILY, Route to Pharmacy Electronically, [facility] [address], [id number], Instructions Replace Required Details, 176,cm, 02/10/24 10:50:00 CDT, Height, 143.18, kg, 02/10/24 10:50:00 CDT, Weight Start Date: 04/20/24 Status: Ordered Wellbutrin XL 150 mg/24 hours oral tablet, extended release 150 mg, 1 tablet(s), Oral, daily, 100 tablet(s), Tab SR 24 HR, 3, 3, Route to Pharmacy Electronically, [facility] [address] [place] [facility], [id number], 176, cm, 04/24/24 13:28:00 CDT, Height, 139.5, [...] Colonoscopy 2019 Completed Excision of uterine polyp [address] [place] [address] Vital Signs Most recent to oldest [Reference Range]: 1 Temperature Temporal Artery [35.8-38 Deg C] 36.5 DegC (04/24/24 1:28 PM) Peripheral Pulse Rate [60-100 bpm] 88 bp m (04/24/24 1:28 PM) Blood Pressure [89-139/60-90 mm Hg] 132/ 82mm Hg (04/24/24 1:28 PM) Height 176 cm (04/24/24 1:28 PM) Weight 139.5 kg (04/24/24 1:28 PM) Social History Social History Type Response Alcohol Former alcohol user, Household alcohol concerns: No. 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 Workplace hazards: Sitting too much. Home/Environment Lives with Spouse. L iving situation: Home/Independent. Alcohol abuse in household: No. Substance abuse in household: No. Feels unsafe at home: No. Nutrition/Health Type of diet: Poor, but trying to eat better. Caffeine intake amount: Soda,Tea: 2-3x's/wk. Diet restrictions: None. Sexual Sexually active: Yes . Sexual orientation: Heterosexual. Uses condoms: No. Substance Abuse Never drug user, Gilda duong substance abuse concerns: No. Smoking Status Former smoker;Never; Tobacco Cessation Counseling Requested N/A; Concerns about tobacco use in household: No; Smoker in household: No; Number of years: 2; entered on: 06/10/23 Sex Hospital Discharge Instructions Patient Education 04/24/2024 13:54:33 Understanding Carpal Tunnel Syndrome Understanding Carpal Tunnel Syndrome The carpal tunnel is a narrow space inside the wrist. It is ringed by bone and a band of tough tissue called the transverse carpal ligament. A major nerve called the median nerve runs from the forearm into the hand through the carpal tunnel. Tendons also run through the carpal tunnel. With carpal tunnel syndrome, the tendons or nearby tissues within the carpal tunnel may swell or thicken. Or the transverse carpal ligament may harden and shorten. This narrows the space in the carpal tunnel and puts pressure on the median nerve. This pressure leads to tingling and numbness of the hand and wrist. In time, the condition can make even simple tasks hard to do. What causes carpal tunnel syndrome? Healthcare providers aren???t entirely sure why the condition occurs. Certain things may make a person more likely to have it. These include: ??? Being female ??? Being ??? Being overweight ??? Having diabetes or rheumatoid arthritis ??? Doing certain motions over and over (repetitive) Symptoms of carpal tunnel syndrome Symptoms often come and go. At first, symptoms may occur mainly at night. Later, they may be noticed during the day as well. They may get worse with activities such as driving, reading, typing, or holding a phone. Symptoms can include: ??? Tingling and numbness in the hand or wrist ??? Sharp pain that shoots up the arm or down to the fingers ??? Hand stiffness or cramping, especially in the morning ??? Trouble making a fist ??? Hand weakness and clumsiness Treatment for carpal tunnel syndrome Certain treatments help reduce the pressure on the median nerve and relieve symptoms. Choices for treatment may include 1 or more of the following: ??? Wrist splint. This involves wearing a special brace on the wrist and hand. The splint holds thewrist straight, in a neutral position. This helps keep the carpal tunnel as open as possible. ??? Cortisone shots. Cortisone is a medicine that helps reduce swelling. It is injected directly into the wrist. It helps shrink tissues inside the carpal tunnel. This relieves symptoms for a time. ??? Pain medicines. You may take [id number] or prescription medicines to help reduce swellingand relieve symptoms. ??? Surgery. If the condition doesn???t respond to other treatments and doesn???t go away on its own, you may need surgery. During surgery, the surgeon cuts the transverse carpal ligament to relieve pressure on the median nerve. When to call your healthcare provider Call your healthcare provider right away if you have any of these: ??? Fever of 100.4??F (38??C) or higher, or as directed ??? Symptoms that don???t get better, or get worse ??? New symptoms ?? 4834-7460 [employer]. All rights reserved. This information is not intended as a substitute for professional medical care. Always follow your healthcare professional's instructions. 04/24/2024 13:54:30 Treating De Quervain Tenosynovitis Treating De Quervain Tenosynovitis The goal of your treatment is to ease your pain and allow you to use your thumb again. Treatment will depend on how??bad the pain is. Nonsurgical Treatment Just taking a break from the activities that caused your pain may be enough. Your??healthcare??provider??may also have you take nonsteroidal, anti- inflammatory drugs (NSAIDs) such as ibuprofen. You may also wear a splint for a few weeks to rest the thumb and wrist. To ease swelling, your??healthcare provider??may inject an anti-inflammatory medicine such as cortisone around the tendons. You may have more pain at first. But in a few days your thumb should feel better. Surgery If other kinds of treatment don???t??ease your pain, or if the pain is??bad, you may need surgery. The sheath that surrounds the tendons is released so the tendons can move more easily. This helps reduce the inflammation. It also allows you to straighten your thumb without pain. Surgery is done with local or regional anesthetic on an outpatient basis.??So you can go home the same day. You will likely have a splint or dressing on your wrist for a few days while the tissue heals. You may need physical therapy to help strengthen muscles. Your??healthcare provider??will talk with you about the risks and possible complications of surgery. The surgery releases the protective sheath, creating more space for the tendons. This allows them to move more freely and relieves inflammation. ?? 3744-2592 [employer]. All rights reserved. This information is not intended as a substitute for professional medical care. Always follow your healthcare professional's instructions. 04/24/2024 13:45:31 Fibromyalgia Fibromyalgia Fibromyalgia is a chronic condition.??It causes pain and tenderness in connective tissues and muscles. Often, there are also many tender areas throughout the body.??Symptoms may also include stiffness and feelings of numbness and tingling. Symptoms may be worse upon waking up. They may increase with poor sleep, heavy activity, cold or damp weather, anxiety, or stress. People with fibromyalgia often feel tired. They may have trouble sleeping. Other symptoms include morning stiffness, headaches, and painful menstrual periods. Some people have problems with thinking clearly and changes in memory. The cause of fibromyalgia is not known.??Symptoms are similar to that of other diseases.??These include rheumatoid arthritis, low thyroid, chronic fatigue syndrome, and Lyme disease.??In some cases, these diseases may occur together. Fibromyalgia is often treated with medicines. You and your healthcare provider can discuss the medicine that may work best for you.??You may have to try more than one medicine or combination of medicines before you find what works for you. Home care ???If your??healthcare provider??has prescribed or recommended medicines, take them as directed. ???Rest as needed. Try to get enough sleep. If you have trouble sleeping, discuss this with your healthcare provider.?Be active. Regular exercise can help manage symptoms. Some options include walking, swimming, and biking. Strengthening and aerobic exercises may also be helpful. Talk to your healthcare provider about the best ways to be active. ???Follow a healthy diet. Limit caffeine and alcohol. If you smoke, ask your??healthcare provider for help to stop. ???Notice how your body reacts to stress. Learn to listen to your body signals. This will help you take action before the stress becomes severe. ???Learn relaxation techniques. Also consider joining a stress reduction program or class. ???Talk to your healthcare provider about trying complementary treatments. These include acupuncture, hypnosis, and biofeedback. Yoga and eva chi may be helpful. ???Ask your healthcare provider about cognitive behavioral therapy (CBT). This type of counseling can??help people with fibromyalgia cope better with their illness. Follow-up care Follow up with your healthcare provider, or as advised. In many cases, fibromyalgia is best treatedwith a team approach. ??This may involve your primary care provider, a program writer, a physical therapist, and??a mental health professional.?? For more information, visit the??National [place] of Arthritis and Musculoskeletal and Skin Diseases (NIAMS) website at??www.niams.nih.gov or call 427-704-6778. When to seek medical advice Contact your healthcare provider right away if any of these occur: ???Symptoms get worse or new symptoms develop ???You feel hopeless, helpless, or lose interest in day-to-day life ?? 5870-0521 [employer]. All rights reserved. This information is not intended as a substitute for professional medical care. Always follow your healthcare professional's instructions. 04/24/2024 13:45:28 Hypothyroid (HOODDM) Hypothyroidism You have been diagnosed with hypothyroidism. This means your thyroid gland is not producing enough thyroid hormone. This hormone is important to body growth and metabolism. If you don't have enough, many body processes slow down, causing mental and physical sluggishness. A variety of other symptomsmay occur and vary from mild to severe. The most severe form of this illness is called myxedema. Signs Of Hypothyroidism (too little thyroid hormone): ??? Fatigue or sluggishness ??? Difficulty concentrating or thinking clearly; forgetfulness ??? Dry skin, hair loss ??? Depression ??? Unexpected weight gain ??? Feeling cold, or cold hands and/or feet Signs Of Hyperthyroidism (too much thyroid hormone, which can be a side effect of treatment for lowthyroid): ??? Restlessness, nervousness ??? Increased appetite with weight loss ??? Excess sweating ??? Palpitations or irregular heartbeat ??? Feeling overheated Home Care: Take your medicine exactly as directed at the same time every day. After taking your thyroid medicine: ??? Wait 2-4 hours before eating or drinking anything that contains calcium and/or iron. Do not stop treatment on your own. If you do, your symptoms will return. Follow Up with your doctor or as advised by our staff. Your thyroid level will need to be monitored for the rest of your life. During your routine visits, tell your doctor about any symptoms such as the ones listed below. Get Prompt Medical Attention if any of the following occur: ??? Extreme fatigue ??? Puffy hands, face, or feet ??? Chest pain or trouble breathing ??? Palpitations or irregular heartbeat ??? Confusion or loss of consciousness ?? 8464-0122 [facility], [address] [place] [address], [place] [address]. All rights reserved. This information is not intended as a substitute for professional medical care. Always follow your healthcare professional's instructions. 04/24/2024 13:45:28 Continuous Positive Airway Pressure (CPAP), Discharge Instructions (LIZZETH) Continuous Positive Airway Pressure (CPAP) Your doctor has prescribed continuous positive airway pressure (CPAP) therapy for you. A CPAP unit is a device that helps you breathe better at night. Using your CPAP device can be a morton part of yourtreatment for sleep apnea and other problems. CPAP is safe and highly effective, but it can take time to get used to the mask. Your doctor or medical supplier will give you tips for wearing and caring for your CPAP device. Here???s what you need to know about using CPAP. General Guidelines ?? Don???t give up! It takes time to get used to wearing the mask at night. ?? Practice wearing your CPAP device during the day, especially whenever you take a nap. ?? Remember, there are several different types of masks. If you can???t get used to your mask, ask your doctor about trying another style. One of them should work for you. ?? Take your medications exactly as directed. Your doctor may prescribe a nasal spray to help open your nasal passages while you are using your CPAP device. ?? Wear CPAP all night, every night, during all naps, and when you travel. ?? If you lose or gain weight, ask your doctor to adjust the air pressure level of your CPAP. ?? Keep your mask clean. Wash it often. Be sure to rinse the mask and tubing well with water to remove any soap. Let them air-dry thoroughly before using. ?? Make yourself comfortable when sleeping with CPAP. Try using extra pillows. Setting Up ?? Place the CPAP device on a sturdy table near your bed. ?? Plug in the power cord. ?? Connect the tubing to the machine. ?? Arrange the headgear so that the longer straps are at the top. ?? With the Velcro facing out (away from your face), put the four tabs through the top and side slots of the mask. Pull the straps through and press the Velcro back against the strap. Using CPAP ?? Put the mask over your nose and slide the headgear over your head. ?? Adjust the Velcro straps, slowly pulling them until the mask is secure against your face. ?? Connect the tubing to your mask and turn on the switch. ?? Lie down, relax, and breathe through your nose. Follow-Up Make a follow-up appointment as directed by our staff. Getting Used to CPAP CPAP takes some getting used to. If there???s anything about CPAP you don???t like, chances are there???s a solution. Below are a few examples of common problems and possible solutions. If this happens: Try this: Air pressure is uncomfortable ?? Try the device???s ramp feature, which starts out at low pressure and slowly raises pressure to your prescribed level. ?? Try a bilevel or autoCPAP device. Discomfort in your nose ?? Try a saline nasal spray. Ask your healthcare provider about trying an antihistamine, decongestant, or prescription nasal spray. ?? Ask for a prescription warm-air humidifier for your device. Adjust the humidification if you already use it. ?? Try a mask that sends air through the mouth instead of the nose. ?? Keep in mind that even if you do nothing, nasal stuffiness may go away within a month. Discomfort in your mouth ?? Try a chin strap to keep the mouth closed while you sleep. ?? Try a mask that covers both nose and mouth. ?? Connect a prescription warm-air humidifier to your device. Adjust the humidification. Discomfort in your eyes, or CPAP works less well than before ?? Adjust your headgear to stop air leaks from around the mask. ?? Replace your mask with one that fits better, is a different size, or fits inside your nostrils. Mask is uncomfortable ?? Adjust fit and tightness of mask and headgear. ?? Put cushions at pressure points. ?? Try a mask of a different style or size. ?? Ask your provider about nasal pillows. ?? If the mask irritates your skin, try a mask of a different material. Air pump is too loud ?? Use a longer hose so the device can go on the floor or under the bed. ?? Ask the device supplier for advice. ?? Try a different CPAP device. Keep in mind that any device???s sound is quieter and easier to tune out than snoring. When to Call Your Doctor Call your doctor right away if you have any of the following: ?? Ear pain that feels worse when you use the CPAP device ?? Ear infection ?? Chest pain ?? Trouble breathing ?? 7833-7512 [facility], [address] [place] [address], [place] [address]. All rights reserved. This information is not intended as a substitute for professional medical care. Always follow your healthcare professional's instructions. 04/24/2024 13:45:27 Anxiety Reaction Anxiety??Reaction Anxiety is the feeling [...] by rest and mild pain reliever ?? 8444-6560 [employer]. All rights reserved. This information is not intended as a substitute for professional medical care. Always follow your healthcare professional's instructions. Note * Event Display: Patient Provided Clipboard Authored Date: [id number] Ambulatory Comprehensive Intake Ambulatory Comprehensive IntakeOriginating Source: PATIENTOriginating Author: KAYLA Cerna Submission Date: October 03, 2020 9:45:07 AM -06:00 KAYLA METZGER : 1980 Sex: Female MRN(s): [id number] Ambulatory Comprehensive Intake Question Response Advance Directive Advance Directive Date Location of Advance Directive Type of Advance Directive Patient has Court Appointed Guardian No Location of Court Appointed Guardian Documentation Legal Guardian Medical Power of Glass Pulverizer Equipment Operator Name Patient Requests Counseling Regarding Advance Directives History of Falling in Last 3 Months, Including Since Admission No Impaired Judgment/Lack of Safety Awareness No Agitation No Impaired Gait, Shuffle, Wide Base, Unsteady Walk No Ever Experience Dizziness or Vertigo No Ever Wet or Soil Yourself on Way to Bathroom No Medical Devices None Promotions Representative Card Other Promotions Representative Details Radiology Testing Barriers/Precautions None Menstrual Status Last Menstrual Period 2020-09-12 Previous LMP Date Last Menstrual Period Description Irregular periods, Heavy flow Menarche Onset Menarche Frequency Menarche Length Menstrual Comments PAP result HPV Coping Stressors Emotional Support Available Do You Receive Comfort From Spiritual Practices No Lutheran Preference Spiritual Practice Comments Weight Change >10lbs [...] voices No Marital or relationship problems No 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
--- OUTSIDE RECORDS SUMMARY | 2024-07-05 14:21 | XMS_ITS | Continuity of Care Document ---
Author Organization [place] [email or web address] [facility] [employer] Address [address] [phone] Care Team Providers Care Dietitian Teaching Name Role Phone Karen Díaz Primary Care Physician Encounter [facility] Financial Number [phone] Date(s): 12/17/22 - 12/17/22 [place] [facility] [address] [phone] Encounter Diagnosis Migraine headache(Discharge Diagnosis) - 12/17/22 Hypothyroidism(Discharge Diagnosis) - 12/17/22 LEVI (obstructive sleep apnea)(Discharge Diagnosis) - 12/17/22 Stress(Discharge Diagnosis) - 12/17/22 Diarrhea(Discharge Diagnosis) - 12/17/22 Discharge Disposition: Home or Self Care Attending Physician: Karen Díaz DO Allergies, Adverse Reactions, Alerts Substance Reaction Severity Status gabapentin Physical aggression: aggressive or combative to self and others (for example, hits self, throws objects, punches, dangerous maneuvers with wheelchair or other objects) Combative reaction Active Immunizations Given and Recorded Vaccine Date Status Refusal Reason SARS-CoV-2 (COVID-19) mRNA BNT-162b2 vax 04/24/21 Recorded SARS-CoV-2 (COVID-19) mRNA BNT-162b2 vax 04/03/21 Recorded Medications albuterol 90 mcg/inh inhaler 2 puff(s), Inhalation, [id number], PRN, 1 each, Inhaler, 11, 11, shortness of breath, Route to Pharmacy Electronically, [facility]/pharmacy #[id number], NCPDP_[id number], 170, cm, 01/02/2021 0936, Height, 137.8, kg,01/02/2021 0936, Weight Start Date: 01/02/21 Status: Ordered DULoxetine 30 mg oral delayed release capsule 1 capsule(s), Oral, daily, 30 capsule(s), 11, Route to Pharmacy Electronically, [id number], NCPDP_[id number], 176, cm, 05/10/2022 1557, Height, 139.5, kg, 05/10/2022 1557, Weight Start Date: 06/09/22 Status: Ordered levothyroxine 75 mcg (0.075 mg) oral tablet 1 tablet(s), Oral, daily before breakfast, 30 tablet(s), 5, Route to Pharmacy Electronically, [id number], NCPDP_[id number], 176, cm, 09/07/2022 1456, Height, 137.2, kg, 09/07/2022 1456, Weight Start Date: 09/21/22 Status: Ordered Gauri 0.25mg-35mcg oral tablet 1 tablet(s), Oral, daily, 84 tablet(s), 3, 3, Route to Pharmacy Electronically, [facility] #[id number], NCPDP_[id number], 176, cm, 09/07/2022 1456, Height, 137.2, kg, 09/07/2022 1456, Weight Start Date: 09/10/22 Status: Ordered omeprazole 20 mg oral delayed release tablet 20 mg, 1 tablet(s), Oral, daily, 0 Start Date: 02/17/22 Status: Ordered Vitamin D3 5000 intl units oral capsule 5,000 unit(s), 1 capsule(s), Oral, daily, 90 capsule(s), Capsule(s), 3, 3, Route to Pharmacy Electronically, [facility] #[id number], NCPDP_[id number], 175, cm, 02/17/2022 1439, Height, 143, kg, 439, Weight Start Date: 03/03/22 Status: Ordered Problem List Condition Confirmation Course Effective Dates Status H ealth Status Informant Allergic rhinitis Confirmed Active BMI 40.0-44.9, adult Confirmed Active Low HDL (under 40) Confirmed [...] Completed [facility]s Most recent to oldest [Reference Range]: 1 Temperature Temporal Artery [35.8-38 Deg C] 36.2 DegC (12/17/22 11:13 AM) Peripheral Pulse Rate [60-100 bpm] 103 b pm *H* (12/17/22 11:13 AM) Respiratory Rate [14-22 br/min] 18 br/mi n (12/17/22 11:13 AM) Blood Pressure [89-139/60-90 mm Hg] 130/ 80mm Hg (12/17/22 11:13 AM) Height 170.18 cm (12/17/22 11:13 AM) Weight 139.54 kg (12/17/22 11:13 AM) Social History Social History Type Response Alcohol Former alcohol user, Household alcohol concerns: No. Substance Abuse Never drug userGilda substance abuse concerns: No. Smoking Status Former smoker;Never; Tobacco Cessation Counseling Requested N/A; Concerns about tobacco use in household: No; Smoker in household: No; Number of years: 2; entered on: 05/07/22 Sex Hospital Discharge Instructions Patient Education 12/17/2022 11:41:10 Anxiety Reaction Anxiety??Reaction Anxiety is the feeling [...] by rest and mild pain reliever ?? [id number] [employer]. All rights reserved. This information is not intended as a substitute for professional medical care. Always follow your healthcare professional's instructions. 12/17/2022 11:41:08 Hypothyroid (HOODDM) Hypothyroidism You have been diagnosed [...] ??? Confusion or loss of consciousness ?? [phone] Jenn Chacko, [address] [place] [address], [place] [address]. All rights reserved. This information is not intended as a substitute for professional medical care. Always follow your healthcare professional's instructions. Internal medicine Outpatient Note * Karen Díaz DO: PERFORM Event Display: Internal Medicine Office/Clinic Note Authored Date: Patient Information Name:KAYLA MARTIN Address: [address] [place] [phone] Sex:Female Date of :1980 Emergency Contact:LUCAS MARTIN Location:[facility] Registration Date and Time:12/17/2022 11:11 CDT Primary Care Physician: Karen Díaz DO, Attending Physician: Karen Díaz DO, Chief Complaint headache concern History of Present Illness Patient is a 42 y.o. female here to follow up on headaches. The migraines have been stable.?? She has not used any of her samples. She has not had a headache-just moved to [place].?? There had been water damage in their previous home which they discovered when she was moving. She was having some issues with getting her medications. She has just been back on her meds-was off for a week.?? Between her moving from [facility] to [place] and her work moved from [place] to [place].?? She had to personally go in and box and unpack things.?? She was out of her thyroid meds for a week and she was sleeping all the last week for extra hours. She still does not have her CPAP. The company called and stated they don't have a CPAP yet. Review of Systems ?CONSTITUTIONAL ? Fever?No.? Chills?No.?? Fatigue?Yes.?? Decreased appetite?No.?? Have you lost or gained weight in the past year?No.?? Recent Illness?No.? EYES ? Change in Vision?No.?? Glasses or contacts?Yes.? ENT ? Problems hearing?No.?? Ear pain?No.?? Sore Throat?No.?? Hoarse voice?No.? Sinus pain?No.?? Post nasal drip?No.?? Runny nose?No.?? Congestion?No.?Allergies-YES ? CARDIOVASCULAR ? Chest Pain?No.? Short of breath at night?No.?? Swelling in Legs?No.?? Skipping heart beats?No.?? Palpitations?No.? RESPIRATORY ? Cough?No.?? Shortness of Breath while resting?No.?? Wheezing?Yes.? GASTROINTESTINAL ? Blood in stool?No.?? Constipation?No.?? Diarrhea?Yes.?? Swallowing problems?No.?? Reflux?No.?? Nausea?No.?? Vomiting?No.?? Abdominal pain?Yes.? NEUROLOGY ? Dizziness?No.?? Headaches?No.? ENDOCRINE ? Problems with heat?No.?? Problems with cold?No.?? Swelling in Neck?No.? Changes in hair?No.? PSYCHIATRIC ? Depression?No.?? Feel like hurting someone?No.?? Feel like hurting yourself?No.?? Problems with memory?No.?? Anxiety?No.?? Problems concentrating?No.?? Problems sleeping?No.?? Stress-YES Vitals and Measurements Vital Signs Height: 170.18 cm Height Inches Conversion: 67 Weight: 139.54 kg Weight in Pounds (kg conversion): 307 Body Surface Area: 2.5683 m2 Body Mass Index: 48.18 kg/m2 Temperature Temporal Artery: 36.2 DegC Systolic Blood Pressure: 130 mm Hg Diastolic Blood Pressure: 80 mm Hg Peripheral Pulse Rate:??103 bpm??High Respiratory Rate: 18 br/min Oxygen Saturation: 98 % Physical Exam GENERAL APPEARANCE: well developed and well nourished, in no acute distress. EYES: sclera clear.?? Glasses in place. HEENT: Head - normocephalic/atraumatic, EARS: tympanic membranes normal, external auditory canals clear, NOSE: nose clear. ORAL: normal mucosa CARDIOVASCULAR: regular rate and rhythm, normal S1S2, no murmurs, click or rubs. RESPIRATORY: normal breath sounds, no wheezes, rhonchi, rales. GASTROINTESTINAL: soft, bowel sounds: normal, no masses palpated, no hepatosplenomegaly, not tender, non-distended. NEUROLOGIC EXAM: alert and oriented x 3. SKIN: unremarkable. EXTREMITIES: no edema. MUSCULOSKELETAL: unremarkable. PSYCH: appropriate mood and affect.?? Good insight and judgement.?? Assessment/Plan 1.??Migraine headache Improved with a change in her environment-had been exposed to mold. She has samples of meds at home. Please keep a diary of symptoms.?? Try to avoid triggers if they are known (such as sleep deprivation, caffeine/alcohol use, bright lights, barometric pressure changes, allergies, tension/stress, dehydration, etc).?? May try resting in a dark room and OTC pain relievers as directed.?? Watch for potential side effects.? Call 911 or seek emergency medical care for new or worsening symptoms including: neurological changes, worst headache of life, vision loss/changes, double vision, syncope, etc.?? Ordered: .15565 Office Visit Level 4 Est ?? 2.??Hypothyroidism Symptomatic-was out of meds for about a week. Feeling very fatigued. Please continue to take your medication first [...] eyes, hair loss, or nail changes.?? Ordered: .[id number] Office Visit Level 4 Est ?? 3.??LEVI (obstructive sleep apnea) Chronic.?? Not well treated at this time.?? Will recommend calling the sleep med office to look fora new medical supply.?? Ordered: .[id number] Office Visit Level 4 Est ?? 4.??Stress Acute on chronic.?? Very stressed.?? Continue on current meds. Try meditation, yoga, writing in a journal or making a video journal, and stress management.?? Daily exercise may help augment mood treatment.?? Recommend seeing a counselor as well to help manage mood. Call 911 or seek emergency medical care for thoughts of SI/HI. Ordered: .[id number] Office Visit Level 4 Est ?? 5.??Diarrhea Chronic.?? Not tolerating many veggies.?? She talked to Dr. Lucia but felt that she was not heard.?? She has concerns about inflammatory bowel disease (sister has it).?? Will refer to [facility]. Ordered: .35533 Office Visit Level 4 Est ?? Follow Up Follow Up with??Karen Díaz DO When??Within 3 [facility] [address] [facility] [address] [place] [address]- Problem List/Past Medical History Ongoing Allergic rhinitis Bilateral hand pain BMI 40.0-44.9, adult Chronic back pain Class 3 obesity CRP elevated Diarrhea Dietary counseling and surveillance Electrolyte and fluid disorder Encounter for long-term current use of medication Exercise counseling Exercise-induced asthma GERD (gastroesophageal reflux disease) Hepatic steatosis Hyperlipidemia Hyperuricemia Hypothyroidism Hypovitaminosis D Left shoulder pain Low HDL (under 40) Metabolic syndrome Obstructive sleep apnea LEVI (obstructive sleep apnea) Osteoarthritis, hand Stress Historical BMI 45.0-49.9, adult Procedure/Surgical History ???Colonoscopy (2019)???Excision of uterine polyp (2015) Medications Unchanged albuterol (albuterol 90 mcg/inh inhaler)2 puff(s) Inhalation every 4 hours as needed shortness of breath. Refills: 11. cholecalciferol (Vitamin D3 5000 intl units oral capsule)1 capsule(s) By mouth daily. Refills: 3. DULoxetine (DULoxetine 30 mg oral delayed release capsule)1 capsule(s) By mouth daily. Refills: 11. ethinyl estradiol-norgestimate (Gauri 0.25mg-35mcg oral tablet)1 tablet(s) By mouth daily. Refills: 3. levothyroxine (levothyroxine 75 mcg (0.075 mg) oral tablet)1 tablet(s) By mouth daily before breakfast. Refills: 5. omeprazole (omeprazole 20 mg oral delayed release tablet)1 tablet(s) By mouth daily. Immunizations Vaccine Date [id number]-1 (COVID-19) mRNA BNT-162b2 vax 04/24/2021 Recorded SARS-CoV-2 (COVID-19) mRNA BNT-162b2 vax 04/03/2021 Recorded influenza virus vaccine, live, trivalent - Not Given Allergies gabapentin??(Physical aggression: aggressive or combative to self and others (for example, hits self, throws objects, punches, dangerous maneuvers with wheelchair or other objects), Combative reaction) Social History Alcohol Former alcohol user, Household alcohol concerns: No., 01/05/2022 Employment/School Employed, Work/School description: [employer]. Workplace hazards: Sitting toomuch., 10/02/2020 Home/Environment Lives [...] drug user, Household substance abuse concerns: No., 01/05/2022 Tobacco Former smoker, Smokeless Tobacco use: Never. N/A Cessation Counseling. 2 year(s). Household tobaccoconcerns: No. Smoker in household: No., 05/07/2022 Family History ?Mother ?Positive ?Snoring ?Brother ?Positive ?Snoring ?Sister ?Positive ?Crohn's disease ?Sister ?Positive ?Snoring ?Grandfather ?Positive ?Cancer ?Grandfather ?Positive ?Diabetes ?Grandfather ?Positive ?Heart disease ?Grandmother ?Positive ?Dementia ?Grandmother ?Positive ?Cancer ?Father ?Positive ?Hyperlipidemia ?Father ?Positive ?Hypertension ?Father ?Positive ?Diabetes ?Father ?Positive ?Snoring ?Father ?Positive ?Diabetes mellitus ? POC Results Event Name?? Event Result?? Date/Time?? Oxygen Saturation 98 % 12/17/22 11:13:00 ? Voice to Text Technology Disclaimer This note may contain text inserted via Dragon or other voice to text assistive technology and animal nurse, variances may occur. Note * Event Display: Patient Provided Clipboard Authored Date: [id number] Ambulatory Comprehensive Intake Ambulatory Comprehensive IntakeOriginating Source: PATIENTOriginating Author: KAYLA Cerna Submission Date: October 03, 2020 9:45:07 AM -06:00 KAYLA METZGER : 1980 Sex: Female MRN(s): [id number] Ambulatory Comprehensive Intake Question Response Advance Directive Advance Directive Date Location of Advance Directive Type of Advance Directive Patient has Court Appointed Guardian No Location of Court Appointed Guardian Documentation Legal Guardian Medical Power of Water Resources Business Segment Leader Name Patient Requests Counseling Regarding Advance Directives History of Falling in Last 3 Months, Including Since Admission No Impaired Judgment/Lack of Safety Awareness No Agitation No Impaired Gait, Shuffle, Wide Base, Unsteady Walk No Ever Experience Dizziness or Vertigo No Ever Wet or Soil Yourself on Way to Bathroom No Medical Devices None Panel Monitor Card Other Panel Monitor Details Radiology Testing Barriers/Precautions None Menstrual Status Last Menstrual Period 2020-09-12 Previous LMP Date Last Menstrual Period Description Irregular periods, Heavy flow Menarche Onset Menarche Frequency Menarche Length Menstrual Comments PAP result HPV Coping Stressors Emotional Support Available Do You Receive Comfort From Spiritual Practices No Sabianism Preference Spiritual Practice Comments Weight Change >10lbs [...] voices No Marital or relationship problems No veterinary epidemiologist awakenings Yes Chief Complaint Need new primary [...] Member Role: Primary Care Physician Address: Address: [address] [place] [phone] Name: Anel Man Position: ALESHA BINDING END STITCHER/PA Member Role: Nurse Practitioner Address: Address: [address] [place] [address] [place] [id number] Name: Berenice Ivory Hostel Manager Position: Population Health Coordinator Member Role: Population Health Coordinator Name: Karen Díaz DO Position: Physician - Internal Medicine Med Service: Healthcare Social Worker Dietitian Teaching Role: Attending Physician Address: Address: [address] [place] [phone] Care Team Related Persons Name: LUCAS MARTIN Address: home [address] [place] [address] [facility], [phone]
--- OUTSIDE RECORDS SUMMARY | 2024-07-05 14:21 | XMS_ITS | Continuity of Care Document ---
Author Organization [employer] [facility] Address [address] [email or web address] [address] [phone] Care Team Providers Care Vp Cardiovascular Service Line Name Role Phone Karen Díaz Primary Care Physician Encounter [facility] Financial Number [phone] Date(s): 12/09/23 - 12/09/23 [employer] [facility] [id number] [email or web address] [address] [phone] Encounter Diagnosis Hypothyroidism(Discharge Diagnosis) - 12/09/23 Fibromyalgia(Discharge Diagnosis) - 12/09/23 Anxiety and depression(Discharge Diagnosis) - 12/09/23 LEVI (obstructive sleep apnea)(Discharge Diagnosis) - 12/09/23 Obesity, Class III, BMI 40-49.9 (morbid obesity)(Discharge Diagnosis) - 12/09/23 Asthma(Discharge Diagnosis) - 12/09/23 Hypovitaminosis D(Discharge Diagnosis) - 12/09/23 Prediabetes(Discharge Diagnosis) - 12/09/23 Discharge Disposition: Home or Self Care Attending Physician: Karen Díaz DO Allergies, Adverse Reactions, Alerts Substance Criticality Severity Reaction Reaction Severity Status gabapentin Physical aggres ada: aggressive or combative to self and others (for example, hits self, throws objects, punches, dangerous maneuvers with wheelchair or other objects) Combative reaction Active Assessment and Plan Future Appointments Appointment Date:02/10/2024 11:00:00 AM Scheduled Provider:Karen Díaz DO Location:[facility] Med Appointment Type:CCFM EP Established Patient Appointment Date:05/11/2024 08:45:00 AM Scheduled Provider:Vladimir Duke MD Location:[facility] Sleep Med Appointment Type:[facility] EP CPAP Established Patient Immunizations Given and Recorded Vaccine Date Status Refusal Reason SARS-CoV-2 (COVID-19) mRNA BNT-162b2 vax 04/24/21 Recorded SARS-CoV-2 (COVID-19) mRNA BNT-162b2 vax 04/03/21 Recorded Medications albuterol 90 mcg/inh inhaler 2 puff(s), Inhalation, [id number], PRN, 1 each, Inhaler, 11, 11, shortness of breath, Route to Pharmacy Electronically, [facility]/pharmacy #[id number], [id number], 170, cm, 01/02/2021 0936, Height, 137.8, kg,01/02/2021 0936, Weight Start Date: 01/02/21 Status: Ordered DULoxetine 60 mg oral capsule 60 mg, 1 capsule(s), Oral, daily, 30 capsule(s), Capsule(s), 5, 5, Route to Pharmacy Electronically, [place] [address] [place] [facility], [id number], 176, cm, 12/09/23 10:52:00 CDT, Height, 143.8, kg, 12/09/23 10:52:00 CDT, Weight Start Date: 12/09/23 Status: Ordered ibuprofen 200 mg oral tablet 2-4 tablets, Oral, [id number], PRN, 120 tablet(s), Tablet(s), 0, for pain Start Date: 03/14/23 Status: Ordered levothyroxine 75 mcg (0.075 mg) oral tablet 1 tablet(s), Oral, daily before breakfast, 30 tablet(s), 5, 5, Route to Pharmacy Electronically, [place] [address] [place] [facility], [id number], 176, cm, 12/09/23 10:52:00 CDT, Height, 143.8, kg, 12/09/23 10:52:00 CDT, Weight Start Date: 12/09/23 Status: Ordered Gauri 0.25mg-35mcg oral tablet 1 tablet(s), Oral, daily, 84 tablet(s), 3, 3, Route to Pharmacy Electronically, [place] [address] [place] [facility], [id number], 176, cm, 12/09/23 10:52:00 CDT, Height, 143.8, kg, 12/09/23 10:52:00 CDT, Weight Start Date: 12/09/23 Status: Ordered omeprazole 20 mg oral delayed release tablet 20 mg, 1 tablet(s), Oral, daily, 0 Start Date: 02/17/22 Status: Ordered Vitamin D3 5000 intl units oral capsule See Instructions, 30 capsule(s), 17, TAKE 1 CAPSULE BY MOUTH DAILY, Route to Pharmacy Electronically, [id number], [id number], Instructions Replace Required Details, 170, cm, 04/07/23 14:55:00 CDT, Height, 140.9, kg, 04/07/23 14:55:00 CDT, Weight Start Date: 04/22/23 Status: Ordered Problem List Condition Confirmation Course Effective Dates Status H ealth Status Informant Allergic rhinitis Confirmed Active Obesity, Class III, BMI 40-49.9 [...] Completed Excision of uterine polyp [address] [place] [address] Vital Signs Most recent to oldest [Reference Range]: 1 Temperature Temporal Artery [35.8-38 Deg C] 36.2 DegC (12/09/23 10:52 AM) Peripheral Pulse Rate [60-100 bpm] 77 bp m (12/09/23 10:52 AM) Blood Pressure [89-139/60-90 mm Hg] 114/ 78mm Hg (12/09/23 10:52 AM) Height 176 cm (12/09/23 10:52 AM) Weight 143.8 kg (12/09/23 10:52 AM) Social History Social History Type Response Alcohol Former alcohol user, Household alcohol concerns: No. 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 Home/Environment Lives [...] Event Display: Patient Provided Clipboard Authored Date: [id number] Ambulatory Comprehensive Intake Ambulatory Comprehensive IntakeOriginating Source: PATIENTOriginating Author: KAYLA Cerna Submission Date: October 03, 2020 9:45:07 AM -06:00 KAYLA METZGER : 1980 Sex: Female MRN(s): [id number] Ambulatory Comprehensive Intake Question Response Advance Directive Advance Directive Date Location of Advance Directive Type of Advance Directive Patient has Court Appointed Guardian No Location of Court Appointed Guardian Documentation Legal Guardian Medical Power of Desk Representative Name Patient Requests Counseling Regarding Advance Directives History of Falling in Last 3 Months, Including Since Admission No Impaired Judgment/Lack of Safety Awareness No Agitation No Impaired Gait, Shuffle, Wide Base, Unsteady Walk No Ever Experience Dizziness or Vertigo No Ever Wet or Soil Yourself on Way to Bathroom No Medical Devices None Security Installer Card Other Security Installer Details Radiology Testing Barriers/Precautions None Menstrual Status Last Menstrual Period 2020-09-12 Previous LMP Date Last Menstrual Period Description Irregular periods, Heavy flow Menarche Onset Menarche Frequency Menarche Length Menstrual Comments PAP result HPV Coping Stressors Emotional Support Available Do You Receive Comfort From Spiritual Practices No Yarsanism Preference Spiritual Practice Comments Weight Change >10lbs [...] voices No Marital or relationship problems No electronic wirer awakenings Yes Chief Complaint Need new primary [...] Authored Date: Patient Information Name:KAYLA MARTIN Address: [address] [place] [phone] Sex:Female Date of :1980 Emergency Contact:LUCAS MARTIN Location:[facility] Registration Date and Time:12/09/2023 10:52 CDT Primary Care Physician: Karen Díaz DO, Attending Physician: Karen Díaz DO, Chief Complaint Mood follow up History of Present Illness Patient is a 43 y.o. female here to follow upon;?? 1) Stress-she and her have fully custody of her 's son.?? she is better able to parent now-still working through it with her .?? Her step- son has to see his biological mother one weekend a month and it is very traumatizing to him.?? She??is feeling exhausted into her bones.?? She gets up at 3 am with her spouse who gets up for work at that time.?? Her leaves the house at 345am, then she goes and lays down and gets up around 6am to wake up raghu Turk-he has to geton the school bus by 720.?? She has a class from 592-106-lore will not take more than 10 minutes for a break every hour.?? They no longer give her a lunch break.?? She eats??lunch at 2pm and then tiera wants to eat lunch at 4pm.?? She feels she is sleeping all the time.? She is going to talk to a counselor on 12/23/23.?? She is feeling like she is not able to cope with anything.?? She has noted some weight gain 2) Work-she hates her job??and she is miserable.?? she has been there for 4 years.? 3) Difficulty with medication-she is having trouble remembering to take her meds.?? About 3 days a week she is missing all of her meds.?? She has a lot of body pain.?? She is not able to stand long enough to get through a load of dishes.?? She tried to go to a restaurant last night but??her back pain was so bad she had to straight up leave.?? She feels she is the last priority and she is taking care of so many other things that she is not able to put herself first.?? 4) LEVI-She is doing well on the CPAP.?? She does feel the air is drying out her eyes.?? Her step son is having a hard time sleeping.?? He will stay up until 10- 11pm??(gets up at 3 am) andhe will come in and pass out in their room on the floor.?? She has to manage their entire household.? She brought a week old kitten and she is bottle feeding it.??She just lost her 20 year old cat a few months??ago.?? Review of Systems ?CONSTITUTIONAL ? Fever?No.? Chills?No.?? Fatigue?No.?? Decreased appetite?No.?? Have youlost or gained weight in the past year?No.?? Recent Illness?No.? EYES ? Change in Vision?No.?? Glasses or contacts?No.?? Swollen eyelids-YES? ENT ? Problems hearing?No.?? Ear pain?No.?? Sore Throat?No.?? Hoarse voice?No.? Sinus pain?No.?? Post nasal drip?No.?? Runny nose?No.?? Congestion?No.?Allergies-YES ? CARDIOVASCULAR ? Chest Pain?No.? Short of breath at night?No.?? Swelling in Legs?No.?? Skipping heart beats?No.?? Palpitations?No.? RESPIRATORY ? Cough?No.?? Shortness of Breath while resting?Yes.?? Wheezing?No.? GASTROINTESTINAL ?Nausea?No.?? Vomiting?No.?? Abdominal pain?No.? GENITOURINARY ? Problems urinating?No.? MUSCULOSKELETAL ? Neck pain?No.? Joint Pain?No.?? Back pain?Yes.? NEUROLOGY ? Dizziness?No.?? Headaches?No.? ENDOCRINE ? Problems with heat?No.?? Problems with cold?No.?? Swelling in Neck?No.?? Frequent urination?No.?? Excessive thirst?No.?? Changes in hair?No.? PSYCHIATRIC ? Depression?No.? Vitals and Measurements Vital Signs Height: 176 cm Height Inches Conversion: 69.3 Weight: 143.8 kg Weight in Pounds (kg conversion): 316.4 Body Surface Area: 2.6515 m2 Body Mass Index: 46.42 kg/m2 Temperature Temporal Artery: 36.2 DegC Systolic Blood Pressure: 114 mm Hg Diastolic Blood Pressure: 78 mm Hg Peripheral Pulse Rate: 77 bpm Oxygen Saturation: 97 % Physical Exam GENERAL APPEARANCE: well developed and well nourished, in no acute distress. EYES: sclera clear. HEENT: Head - normocephalic/atraumatic CARDIOVASCULAR: regular rate and rhythm, normal S1S2, no murmurs, click or rubs. RESPIRATORY: normal breath sounds, no wheezes, rhonchi, rales. GASTROINTESTINAL: soft, bowel sounds: normal, no masses palpated, no hepatosplenomegaly, not tender, non-distended. NEUROLOGIC EXAM: alert and oriented x 3.? PSYCH: appropriate mood and affect.?? Good insight and judgement.?? Assessment/Plan 1.??Hypothyroidism Stable.?? Chronic.?? Asymptomatic. Please continue to take [...] eyes, hair loss, or nail changes.?? Ordered: CBC with Differential Comprehensive Metabolic Profile Free T3 Free T4 Hemoglobin A1c Lipid Panel TSH (Highly Sensitive) Urinalysis w/ Reflex to Culture Vitamin D, 25-Hydroxy, Total ?? 2.??Fibromyalgia Acute on chronic.?? Flared up at this time due to poor sleep, stress, and missing doses of her duloxetine.?? Start taking medication more consistently.?? Recommend daily low impact exercises like walking, swimming, yoga, and eva chi.?? Recommend continued daily movement but avoid high impact activities. Consider a diet high in anti-inflammatories (tumeric, whole foods, unprocessed, more fruits and veggies).?? Ordered: CBC with Differential Comprehensive Metabolic Profile Free T3 Free T4 Hemoglobin A1c Lipid Panel TSH (Highly Sensitive) Urinalysis w/ Reflex to Culture Vitamin D, 25-Hydroxy, Total ?? 3.??Anxiety and depression Chronic.?? Symptomatic.?? Not well controlled-missing half her doses of duloxetine.?? Try taking itmid morning.?? Work on creating a more consistent home schedule??for yourself.?? To start talking to a counselor at the end of the month. Try meditation, yoga, writing in a journal or making a video journal, and stress management.?? Daily exercise may help augment mood treatment.?? Recommend seeing a counselor as well to help manage mood. Call 911 or seek emergency medical care for thoughts of SI/HI. Ordered: CBC with Differential Comprehensive Metabolic Profile Free T3 Free T4 Hemoglobin A1c Lipid Panel TSH (Highly Sensitive) Urinalysis w/ Reflex to Culture Vitamin D, 25-Hydroxy, Total ?? 4.??LEVI (obstructive sleep apnea) Chroni?c.?? Stable.?? Continue on CPAP nightly. Ordered: CBC with Differential Comprehensive Metabolic Profile Free T3 Free T4 Hemoglobin A1c Lipid Panel TSH (Highly Sensitive) Urinalysis w/ Reflex to Culture Vitamin D, 25-Hydroxy, Total ?? 5.??Obesity, Class III, BMI 40-49.9 (morbid obesity) Start using a smaller plate.?? Measure out snacks. Drink a full glass of water before meals. Work up to 30 minutes of activity everyday. [place] combo will be both aerobic exercise and 2-3 days of resistance training. Consider one cheat day per week. Cut out all alcohol.?? Set a 30 minute timer-no second portions until that timer goes off.?? Ordered: CBC with Differential Comprehensive Metabolic Profile Free T3 Free T4 Hemoglobin A1c Lipid Panel TSH (Highly Sensitive) Urinalysis w/ Reflex to Culture Vitamin D, 25-Hydroxy, Total ?? 6.??Asthma Chronic.?? Fair control.?? Add in a daily antihistamine for allergy trigger reduction.?? Albuterol??inhaler sent to pharmacy, please use when needed for shortness of breath and/or wheezingevery 4 hours.?Please keep track of??albuterol use and call office if needed more than 2 times per week.?Please call office if you have nighttime awakenings for Shortness of breath or wheezing or if you are seen??at a Urgent care or ER for asthma exacerbation.?Please call office or go to ER if symptoms do not improve with albuterol or you are needing more than every 4 hours for symptoms.?? Ordered: CBC with Differential Comprehensive Metabolic Profile Free T3 Free T4 Hemoglobin A1c Lipid Panel TSH (Highly Sensitive) Urinalysis w/ Reflex to Culture Vitamin D, 25-Hydroxy, Total ?? 7.??Hypovitaminosis D ??Due for labs at this time.?? Will review data and treat as appropriate.?? Ordered: CBC with Differential Comprehensive Metabolic Profile Free T3 Free T4 Hemoglobin A1c Lipid Panel TSH (Highly Sensitive) Urinalysis w/ Reflex to Culture Vitamin D, 25-Hydroxy, Total ?? 8.??Prediabetes ??Due for labs at this time.?? Will review data and treat as appropriate.? Ordered: CBC with Differential Comprehensive Metabolic Profile Free T3 Free T4 Hemoglobin A1c Lipid Panel TSH (Highly Sensitive) Urinalysis w/ Reflex to Culture Vitamin D, 25-Hydroxy, Total ?? Orders: DULoxetine, 60 mg, 1 capsule(s), Oral, daily, 30 capsule(s), Capsule(s), 5, 5, Route to Pharmacy Electronically, [facility] [id number] [place] [facility], [id number], 176, cm, 12/09/23 10:52:00 CDT, Height, 143.8, kg, 12/09/23 10:52:00 CDT, Weight ethinyl estradiol-norgestimate, 1 tablet(s), Oral, daily, 84 tablet(s), 3, 3, Route to Pharmacy Electronically, [facility] [address] [place] [facility], [id number], 176, cm, 12/09/23 10:52:00CDT, Height, 143.8, kg, 12/09/23 10:52:00 CDT, Weight levothyroxine, 1 tablet(s), Oral, daily before breakfast, 30 tablet(s), 5, 5, Route to Pharmacy Electronically, [facility] [address] [place] [facility], [id number], 176, cm, 12/09/23 10:52:00CDT, Height, 143.8, kg, 12/09/23 10:52:00 CDT, Weight Future Order Details CBC with Differential, 12/09/23, Blood, ROUTINE, Routine, Order for Future Visit, Nurse Collect, Print Label, Hypothyroidism Fibromyalgia Anxiety and depression LEVI (obstructive sleep apnea) Obesity, Class III, BMI 40-49.9 (morbid obesity) Asthma Hyperuricemia ... Comprehensive Metabolic Profile, 12/09/23, Blood, ROUTINE, Routine, Order for Future Visit, Nurse Collect, Print Label, Hypothyroidism Fibromyalgia Anxiety and depression LEVI (obstructive sleepapnea) Obesity, Class III, BMI 40-49.9 (morbid obesity) Asthma Hyperuricemia ... Free T3, 12/09/23, Blood, ROUTINE, Routine, Order for Future Visit, Nurse Collect, Print Label, Hypothyroidism Fibromyalgia Anxiety and depression LEVI (obstructive sleep apnea) Obesity, ClassIII, BMI 40-49.9 (morbid obesity) Asthma Hyperuricemia ... Free T4, 12/09/23, Blood, ROUTINE, Routine, Order for Future Visit, Nurse Collect, Print Label, Hypothyroidism Fibromyalgia Anxiety and depression LEVI (obstructive sleep apnea) Obesity, ClassIII, BMI 40-49.9 (morbid obesity) Asthma Hyperuricemia ... Hemoglobin A1c, 12/09/23, Blood, ROUTINE, Routine, Order for Future Visit, Nurse Collect, Print Label, Hypothyroidism Fibromyalgia Anxiety and depression LEVI (obstructive sleep apnea) Obesity, Class III, BMI 40-49.9 (morbid obesity) Asthma Hyperuricemia ... Lipid Panel, 12/09/23, Blood, ROUTINE, Routine, Order for Future Visit, Nurse Collect, Print Label,Hypothyroidism Fibromyalgia Anxiety and depression LEVI (obstructive sleep apnea) Obesity, Class III, BMI 40-49.9 (morbid obesity) Asthma Hyperuricemia ... TSH (Highly Sensitive), 12/09/23, Blood, ROUTINE, Routine, Order for Future Visit, Nurse Collect, Print Label, Hypothyroidism Fibromyalgia Anxiety and depression LEVI (obstructive sleep apnea) Obesity, Class III, BMI 40-49.9 (morbid obesity) Asthma Hyperuricemia ... Urinalysis w/ Reflex to Culture, 12/09/23, Urine - Voided, ROUTINE, Routine, Nurse Collect, Print Label, Hypothyroidism Fibromyalgia Anxiety and depression LEVI (obstructive sleep apnea) Obesity, Class III, BMI 40-49.9 (morbid obesity) Asthma Hyperuricemia Hypovitaminosi... Vitamin D, 25-Hydroxy, Total, 12/09/23, Blood, ROUTINE, Routine, Order for Future Visit, Nurse Collect, Print Label, Hypothyroidism Fibromyalgia Anxiety and depression LEVI (obstructive sleep apnea) Obesity, Class III, BMI 40-49.9 (morbid obesity) Asthma Hyperuricemia ... Follow Up Follow Up with??Karen Díaz DO When??Within 3 months Where: [facility] [address] [facility] [address] [place] [address]- Problem List/Past Medical History Ongoing Allergic rhinitis Bilateral hand pain Chronic back pain Class 3 obesity CRP elevated Diarrhea Dietary counseling and surveillance Electrolyte and fluid disorder Encounter for long-term current use of medication Exercise counseling Exercise-induced asthma GERD (gastroesophageal reflux disease) Hepatic steatosis Hyperlipidemia Hyperuricemia Hypothyroidism Hypovitaminosis D Intolerant of cold Left shoulder pain Low HDL (under 40) Metabolic syndrome Obesity, Class III, BMI 40-49.9 (morbid obesity) Obstructive sleep apnea LEVI (obstructive sleep apnea) Osteoarthritis, hand Prediabetes Stress Historical BMI 45.0-49.9, adult Procedure/Surgical History ???Colonoscopy (2019)???Excision of uterine polyp (2015) Medications Unchanged albuterol (albuterol 90 mcg/inh inhaler)2 puff(s) Inhalation every 4 hours as needed shortness of breath. Refills: 11. cholecalciferol (Vitamin D3 5000 intl units oral capsule)TAKE 1 CAPSULE BY MOUTH DAILY. Refills: 17. DULoxetine (DULoxetine 60 mg oral capsule)1 capsule(s) [...] tablet(s) By mouth daily. 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 Smoker in household: No., 06/10/2023 Family History ?Father ?Positive ?Hyperlipidemia ?Father ?Positive ?Hypertension ?Father ?Positive ?Diabetes ?Sister ?Positive ?Crohn's disease ?Grandmother ?Positive ?Dementia ?Grandfather ?Positive ?Cancer ?Grandmother ?Positive ?Cancer ?Grandfather ?Positive ?Diabetes ?Grandfather ?Positive ?Heart disease ?Mother ?Positive ?Snoring ?Father ?Positive ?Snoring ?Sister ?Positive ?Snoring ?Brother ?Positive ?Snoring ?Father ?Positive ?Diabetes mellitus ? POC Results Event Name?? Event Result?? Date/Time?? Oxygen Saturation 97 % 12/09/23 10:52:00 ? Voice to Text Technology Disclaimer This note may contain text inserted via Dragon or other voice to text assistive technology and card room manager, variances may occur. Patient Care team information Care Team Personnel Name: Karen Díaz DO Position: Physician - Internal Medicine Member Role: Primary Care Physician Address: Address: [address] [place] [phone] Name: Anel Man C Position: AMB CD MANUFACTURING SUPERVISOR/PA Member Role: Nurse Practitioner Address: Address: [address] [place] [phone] Name: Berenice Ivory Farmworker Position: Population Health Coordinator Member Role: Population Health Coordinator Name: Karen Díaz DO Position: Physician - Internal Medicine Med Service: Extra Gang Supervisor Vp Cardiovascular Service Line Role: Attending Physician Address: Address: [address] [place] [address] [address] [place], [place] [phone] Care Team Related Persons Name: LUCAS MARTIN Address: home [address] [facility] [phone]
--- OUTSIDE RECORDS SUMMARY | 2024-07-05 14:21 | XMS_ITS | Continuity of Care Document ---
Author Organization [facility] Sleep Medic [facility] Address [address] [place] [phone] Care Team Providers Care Sustainable Design Consultant Name Role Phone Karen Díaz Primary Care Physician Encounter [facility] Financial Number [id number] Date(s): 05/11/24 - 05/11/24 [facility] Sleep Medicine [address] [place] [phone] Discharge Disposition: Home or Self Care Attending Physician: Vladimir Duke MD Allergies, Adverse Reactions, Alerts Substance Criticality Severity Reaction Reaction Severity Status gabapentin Physical aggres ada: aggressive or combative to self and others (for example, hits self, throws objects, punches, dangerous maneuvers with wheelchair or other objects) Combative reaction Active Assessment and Plan Future Appointments Appointment Date:07/30/2024 01:30:00 PM Scheduled Provider:Anabelle Kaufman TRAVEL ASSISTANT Location:[facility] Appointment Type:CC EP Established Patient Immunizations Given and Recorded Vaccine Date Status Refusal Reason rabies vaccine, human diploid cell 03/30/24 Record ed rabies vaccine, human diploid cell 03/23/24 Record ed SARS-CoV-2 (COVID-19) mRNA BNT-162b2 vax 04/24/21 Recorded SARS-CoV-2 (COVID-19) mRNA BNT-162b2 vax 04/03/21 Recorded Medications albuterol 90 mcg/inh inhaler 2 puff(s), Inhalation, [id number], PRN, 1 each, Inhaler, 11, 11, shortness of breath, Route to Pharmacy Electronically, [facility]/pharmacy #[id number], [id number]_[id number], 170, cm, 01/02/2021 0936, Height, 137.8, kg,01/02/2021 0936, Weight Start Date: 01/02/21 Status: Ordered DULoxetine 60 mg oral capsule 60 mg, 1 capsule(s), Oral, daily, 30 capsule(s), Capsule(s), 5, 5, Route to Pharmacy Electronically, [facility], [id number], 176, cm, 04/24/24 13:28:00 CDT, Height, 139.5, kg, 04/24/24 13:28:00 CDT, Weight Start Date: 04/24/24 Status: Ordered ibuprofen 200 mg oral tablet 2-4 tablets, Oral, [id number], PRN, 120 tablet(s), Tablet(s), 0, for pain Start Date: 03/14/23 Status: Ordered levothyroxine 75 mcg (0.075 mg) oral tablet 1 tablet(s), Oral, daily before breakfast, 30 tablet(s), 5, 5, Route to Pharmacy Electronically, [facility] [address] [facility], [id number], 176, cm, 02/10/24 10:50:00 CDT, Height, 143.18, kg, 02/10/24 10:50:00 CDT, Weight Start Date: 02/10/24 Status: Ordered Gauri 0.25mg-35mcg oral tablet 1 tablet(s), Oral, daily, 84 tablet(s), 3, 3, Route to Pharmacy Electronically, [facility] [address] [facility], [id number], 176, cm, 12/09/23 10:52:00 CDT, Height, 143.8, kg, 12/09/23 10:52:00 CDT, Weight Start Date: 12/09/23 Status: Ordered omeprazole 20 mg oral delayed release tablet 20 mg, 1 tablet(s), Oral, daily, 90 tablet(s), Tab EC, 3, 3, Route to Pharmacy Electronically, [facility] [address] [facility], [id number], 176, cm, 02/10/24 10:50:00 CDT, Height, 143.18, kg, 02/10/24 10:50:00 CDT, Weight Start Date: 02/10/24 Status: Ordered Vitamin D3 5000 intl units oral capsule See Instructions, 30 capsule(s), 0, TAKE 1 CAPSULE BY MOUTH DAILY, Route to Pharmacy Electronically, [facility], [id number], Instructions Replace Required Details, 176,cm, 02/10/24 10:50:00 CDT, Height, 143.18, kg, 02/10/24 10:50:00 CDT, Weight Start Date: 04/20/24 Status: Ordered Wellbutrin XL 150 mg/24 hours oral tablet, extended release 150 mg, 1 tablet(s), Oral, daily, 100 tablet(s), Tab SR 24 HR, 3, 3, Route to Pharmacy Electronically, [facility] [address] [facility], [id number], 176, cm, 04/24/24 13:28:00 CDT, Height, 139.5, [...] Completed Excision of uterine polyp [address] [place] [address] Social History Social History Type Response Alcohol Former alcohol user, Household alcohol concerns: No. 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 Workplace hazards: Sitting too much. Home/Environment Lives [...] Event Display: Patient Provided Clipboard Authored Date: [id number] Ambulatory Comprehensive Intake Ambulatory Comprehensive IntakeOriginating Source: PATIENTOriginating Author: KAYLA Cerna Submission Date: October 03, 2020 9:45:07 AM -06:00 KAYLA METZGER : 1980 Sex: Female MRN(s): [id number] Ambulatory Comprehensive Intake Question Response Advance Directive Advance Directive Date Location of Advance Directive Type of Advance Directive Patient has Court Appointed Guardian No Location of Court Appointed Guardian Documentation Legal Guardian Medical Power of Hand Straightener Name Patient Requests Counseling Regarding Advance Directives History of Falling in Last 3 Months, Including Since Admission No Impaired Judgment/Lack of Safety Awareness No Agitation No Impaired Gait, Shuffle, Wide Base, Unsteady Walk No Ever Experience Dizziness or Vertigo No Ever Wet or Soil Yourself on Way to Bathroom No Medical Devices None Fitter Helper Card Other Fitter Helper Details Radiology Testing Barriers/Precautions None Menstrual Status Last Menstrual Period 2020-09-12 Previous LMP Date Last Menstrual Period Description Irregular periods, Heavy flow Menarche Onset Menarche Frequency Menarche Length Menstrual Comments PAP result HPV Coping Stressors Emotional Support Available Do You Receive Comfort From Spiritual Practices No Latter Day Preference Spiritual Practice Comments Weight Change >10lbs [...] voices No Marital or relationship problems No ware 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
--- OUTSIDE RECORDS SUMMARY | 2024-07-05 14:21 | XMS_ITS | Continuity of Care Document ---
Author Organization [facility] MessageParty Address [address] [address] [facility] [address] [phone] Care Team Providers Care Gauge Inspector Name Role Phone Karen Díaz Primary Care Physician Encounter [facility] Financial Number [id number] Date(s): 06/10/23 - 06/10/23 [facility] [address] [address] [phone] Encounter Diagnosis Stress(Discharge Diagnosis) - 06/10/23 Fibromyalgia(Discharge Diagnosis) - 06/10/23 LEVI (obstructive sleep apnea)(Discharge Diagnosis) - 06/10/23 GERD (gastroesophageal reflux disease)(Discharge Diagnosis) - 06/10/23 Intolerant of cold(Discharge Diagnosis) - 06/10/23 Discharge Disposition: Home or Self Care Attending Physician: Karen Díaz DO Allergies, Adverse Reactions, Alerts Substance Reaction Severity Status gabapentin Physical aggression: aggressive or combative to self and others (for example, hits self, throws objects, punches, dangerous maneuvers with wheelchair or other objects) Combative reaction Active Assessment and Plan Future Appointments Appointment Date:12/09/2023 11:00:00 AM Scheduled Provider:Karen Díaz DO Location:[facility] Med Appointment Type:CC EP Established Patient Appointment Date:05/11/2024 08:45:00 AM Scheduled Provider:Vladimir Duke MD Location:[facility] Sleep Med Appointment Type:[facility] EP CPAP Established Patient Immunizations Given and Recorded Vaccine Date Status Refusal Reason SARS-CoV-2 (COVID-19) mRNA BNT-162b2 vax 04/24/21 Recorded SARS-CoV-2 (COVID-19) mRNA BNT-162b2 vax 04/03/21 Recorded Medications albuterol 90 mcg/inh inhaler 2 puff(s), Inhalation, [id number], PRN, 1 each, Inhaler, 11, 11, shortness of breath, [id number] [id number]_[id number], 170, cm, 01/02/2021 0936, Height, 137.8, kg,01/02/2021 0936, Weight Start Date: 01/02/21 Status: Ordered DULoxetine 60 mg oral capsule 60 mg, 1 capsule(s), Oral, daily, 30 capsule(s), Capsule(s), 5, 5, [facility] [id number], 176, cm, 06/10/23 10:57:00 CASTING SUPERVISOR, Height, 1 40, kg, 06/10/23 10:57:00 CASTING SUPERVISOR, Weight Start Date: 06/10/23 Status: Ordered ibuprofen 200 mg oral tablet 2-4 tablets, Oral, [id number], PRN, 120 tablet(s), Tablet(s), 0, for pain Start Date: 03/14/23 Status: Ordered levothyroxine 75 mcg (0.075 mg) oral tablet 1 tablet(s), Oral, daily before breakfast, 30 tablet(s), 5, 5, [facility], [id number], 176, cm, 06/10/23 10:57:00 CASTING SUPERVISOR, Height, 140,kg, 06/10/23 10:57:00 CASTING SUPERVISOR, Weight Start Date: 06/10/23 Status: Ordered Gauri 0.25mg-35mcg oral tablet 1 tablet(s), Oral, daily, 84 tablet(s), 3, 3, [id number], 176, cm, 06/10/23 10:57:00 CASTING SUPERVISOR, Height, 140, kg, 06/10/23 10:57:00 CASTING SUPERVISOR, Weight Start Date: 06/10/23 Status: Ordered omeprazole 20 mg oral delayed release tablet 20 mg, 1 tablet(s), Oral, daily, 0 Start Date: 02/17/22 Status: Ordered Vitamin D3 5000 intl units oral capsule See Instructions, 30 capsule(s), 17, TAKE 1 CAPSULE BY MOUTH DAILY, Route to Pharmacy Electronically, [facility], [id number], Instructions Replace Required Details, 170, cm, 04/07/23 [...] Completed Excision of uterine polyp [address] [place] [address] Vital Signs Most recent to oldest [Reference Range]: 1 Temperature Temporal Artery [35.8-38 Deg C] 36.1 DegC (06/10/23 10:57 AM) Peripheral Pulse Rate [60-100 bpm] 78 bp m (06/10/23 10:57 AM) Blood Pressure [89-139/60-90 mm Hg] 124/ 76mm Hg (06/10/23 10:57 AM) Height 176 cm (06/10/23 10:57 AM) Weight 140 kg (06/10/23 10:57 AM) Social History Social History Type Response Alcohol Former alcohol user, Household alcohol concerns: No. Substance Abuse Never drug user, Gilda duong substance abuse concerns: No. Smoking Status Former smoker;Never; Tobacco Cessation Counseling Requested N/A; Concerns about tobacco use in household: No; Smoker in household: No; Number of years: 2; entered on: 06/10/23 Sex Hospital Discharge Instructions Patient Education 06/10/2023 11:28:27 Fibromyalgia Fibromyalgia Fibromyalgia is a chronic condition.??It [...] may involve your primary care provider, a aircraft engine cylinder mechanic, a physical therapist, and??a mental health professional.?? For more information, visit the??National [place] of Arthritis and Musculoskeletal and Skin Diseases (NIAMS) website at??www.niams.nih.gov or call 130-068-4568. When to seek medical advice Contact your healthcare provider right away if any of these occur: ???Symptoms get worse or new symptoms develop ???You feel hopeless, helpless, or lose interest in day-to-day life ?? 0606-5207 [employer]. All rights reserved. This information is not intended as a substitute for professional medical care. Always follow your healthcare professional's instructions. 06/10/2023 11:27:54 Anxiety Reaction Anxiety??Reaction Anxiety is the feeling [...] by rest and mild pain reliever ?? 4035-6710 [employer]. All rights reserved. This information is not intended as a substitute for professional medical care. Always follow your healthcare professional's instructions. 06/10/2023 11:27:53 Lifestyle Changes for Controlling GERD Lifestyle Changes for Controlling??GERD When you have GERD, stomach acid feels as if it???s backing up toward your mouth. Making lifestyle changes can often improve your symptoms. This is true if you take medicine to control your GERD or not. Talk with your healthcare provider about the following suggestions. They may help you get relieffrom your symptoms. Raise your head Reflux is more likely to happen when you???re lying down flat. That's because stomach fluid can flow backward more easily. Raising the head of your bed??4 to 6 inches can help. To do this: ???Slide blocks or books under the legs at the head of your bed. Or put a wedge under the mattress.Many [employer] stores can make a wedge for you. The wedge should go from your waist to the top of your head. ???Don???t just prop your head up on a few pillows. This increases pressure on your stomach. It canmake GERD worse. Watch your eating habits Certain foods may increase the acid in your stomach. Or they may relax the lower esophageal sphincter. This makes GERD more likely. It???s best to avoid the following if they cause you symptoms: ???Coffee, tea, and carbonated drinks (with and without caffeine) ???Fatty, fried, or spicy food ???Mint, chocolate, onions, tomatoes, and citrus ???Peppermint ???Any other foods that seem to irritate your stomach or cause you pain Relieve the pressure Tips include the following: ???Eat smaller meals, even if you have to eat more often. ???Don???t lie down right after you eat. Wait a few hours for your stomach to empty. ???Don't wear tight belts or tight-fitting clothes. ???Lose any extra weight. Tobacco and alcohol Don't smoke tobacco or drink alcohol. They can make GERD symptoms worse. ?? 9674-8837 [employer]. All rights reserved. This information is not intended as a substitute for professional medical care. Always follow your healthcare professional's instructions. Note * Event Display: Patient Provided Clipboard Authored Date: [id number] Ambulatory Comprehensive Intake Ambulatory Comprehensive IntakeOriginating Source: PATIENTOriginating Author: KAYLA Cerna Submission Date: October 03, 2020 9:45:07 AM -06:00 KAYLA METZGER : 1980 Sex: Female MRN(s): [id number] Ambulatory Comprehensive Intake Question Response Advance Directive Advance Directive Date Location of Advance Directive Type of Advance Directive Patient has Court Appointed Guardian No Location of Court Appointed Guardian Documentation Legal Guardian Medical Power of Swimming Pool Maintenance Supervisor Name Patient Requests Counseling Regarding Advance Directives History of Falling in Last 3 Months, Including Since Admission No Impaired Judgment/Lack of Safety Awareness No Agitation No Impaired Gait, Shuffle, Wide Base, Unsteady Walk No Ever Experience Dizziness or Vertigo No Ever Wet or Soil Yourself on Way to Bathroom No Medical Devices None Pnp Card Other Pnp Details Radiology Testing Barriers/Precautions None Menstrual Status Last Menstrual Period 2020-09-12 Previous LMP Date Last Menstrual Period Description Irregular periods, Heavy flow Menarche Onset Menarche Frequency Menarche Length Menstrual Comments PAP result HPV Coping Stressors Emotional Support Available Do You Receive Comfort From Spiritual Practices No Shinto Preference Spiritual Practice Comments Weight Change >10lbs [...] voices No Marital or relationship problems No 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 female here to follow up on: 1) Stress-She has been prescribed 60mg of duloxetine daily. She and her now have full custody of her step-son, Katarzyna Turk.?? The mother was on drugs and overdosed and locked her step son/the mother locked him in a closet. They were in court yesterday and they brought him to court.?? Peewee Turk is feeling guilty and is uncomfortable with his mother quilting him.?? She and her are communicating better.?? She is now actively co-parenting peewee Turk. 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 2) GERD- she recently saw GI and had an EGD.?? Negative study.?? Biopsies were taken.?? No esophageal stenosis. Dysphagia symptoms are improved. 3) LEVI-she has seen sleep med.?? Working on getting a new mask and increasing the humidity to help with her sleep and tolerance of the APAP. She is doing a little better but she is taking her mask off intermittently. 4) She gets a feeling of itchiness on her legs in really cold areas.?? She is worried about cold urticaria.?? Can occur with cold air. Review of Systems ?CONSTITUTIONAL ? Fever?No.? Chills?No.?? Fatigue?No.?? Decreased appetite?No.?? Have youlost or gained weight in the past year?No.?? Recent Illness?No.? EYES ? Change in Vision?No.?? Glasses or contacts?Yes.? ENT ? Problems hearing?No.? CARDIOVASCULAR ? Chest Pain?No.? RESPIRATORY ? Cough?No.?? Shortness of Breath while resting?No.? GASTROINTESTINAL ? Blood in stool?No.?? Constipation?No.?? Diarrhea?No.?? Swallowing problems?Yes.?? Reflux?No.?? Nausea?No.?? Vomiting?No.?? Abdominal pain?No.? MUSCULOSKELETAL ? Joint Pain?Yes.? NEUROLOGY ? Dizziness?No.?? Headaches?No.? PSYCHIATRIC ? Depression?Yes.? Anxiety?Yes.?? Problems sleeping?Yes.?? Vitals and Measurements Vital Signs Height: 176 cm Height Inches Conversion: 69.3 Weight: 140 kg Weight in Pounds (kg conversion): 308 Body Surface Area: 2.6162 m2 Body Mass Index: 45.2 kg/m2 Temperature Temporal Artery: 36.1 DegC Systolic Blood Pressure: 124 mm Hg Diastolic Blood Pressure: 76 mm Hg Peripheral Pulse Rate: 78 bpm Oxygen Saturation: 98 % HRA Pain Present: No Physical Exam GENERAL APPEARANCE: well developed and well nourished, in no acute distress. EYES: sclera clear. Glasses in place. HEENT: Head - normocephalic/atraumatic CARDIOVASCULAR: regular rate and rhythm, normal S1S2, no murmurs, click or rubs. RESPIRATORY: normal breath sounds, no wheezes, rhonchi, rales. GASTROINTESTINAL: soft, bowel sounds: normal, no masses palpated, no hepatosplenomegaly, not tender, non-distended. NEUROLOGIC EXAM: alert and oriented x 3. SKIN: downing hemangioma on the upper abdomen, mild facial acne EXTREMITIES: no edema. MUSCULOSKELETAL: unremarkable. PSYCH: appropriate mood and affect.?? Good insight and judgement.?? Assessment/Plan 1.??Stress Chronic.?? Improving with some changes at home. Continue with duloxetine. Try meditation, yoga, writing in a journal or making a video journal, and stress management.?? Daily exercise may help augment mood treatment.?? Recommend seeing a counselor as well to help manage mood. Call 911 or seek emergency medical care for thoughts of SI/HI. Ordered: .03952 Office Visit Level 4 Est ?? 2.??Fibromyalgia Chronic.?? Stable.?? Continue with duloxetine daily. Recommend daily low impact exercises like walking, swimming, yoga, and eva chi.?? Recommend continued daily movement but avoid high impact activities. Consider a diet high in anti-inflammatories (tumeric, whole foods, unprocessed, more fruits and veggies).?? Ordered: .[id number] Office Visit Level 4 Est ?? 3.??LEVI (obstructive sleep apnea) Chronic.?? Stable.?? Continue with APAP nightly.?? Seeing the sleep medicine doctor. Ordered: .75772 Office Visit Level 4 Est ?? 4.??GERD (gastroesophageal reflux disease) Chronic.?? Stable.?? Continue with omeprazole daily.??Dysphagia is improved.?? Will continue to monitor and write down when the episodes occur. Will continue with GI. Keep a diary of symptoms.?? Avoid triggers: laying down after eat, eating a large or heavy meal, wearing tight clothing around the upper abdomen, eating spicy or highly acidic foods, alcohol, caffeine, mint, and chocolate, and NSAIDs.?? For daily symptoms, may need to try an H2 maxx or PPI daily.?? Additionally, may benefit from seeing a rehabilitation nurse and getting an EGD if symptoms are not able to be well controlled with lifestyle changes and medications.?? For intermittent (1-2x month)symptoms, may try rolaids or tums for symptom relief.?? Call 911 or seek emergency medical care for gross blood in the stool, black stools (melena), or hematemesis (throwing up what looks like blood/coffee grounds).? Ordered: .[id number] Office Visit Level 4 Est ?? 5.??Intolerant of cold Chronic.?? Intermittent .?? Try an antihistamine. Urticaria? Vasculitis??? Thyroid? Will continue to monitor.?? Take pictures of the skin when it occurs.?? Ordered: .06841 Office Visit Level 4 Est ?? Orders: DULoxetine, 60 mg, 1 capsule(s), Oral, daily, 30 capsule(s), Capsule(s), 5, 5, Route to Pharmacy Electronically, [facility]/pharmacy #[id number], [id number], 176, cm, 06/10/23 10:57:00 CASTING SUPERVISOR, Height, 140, kg, 06/10/23 10:57:00 CASTING SUPERVISOR, Weight ethinyl estradiol-norgestimate, 1 tablet(s), Oral, daily, 84 tablet(s), 3, 3, [id number], [id number], 176, cm, 06/10/23 10:57:00 CASTING SUPERVISOR, Height, 140, kg, 06/10/23 10:57:00 CASTING SUPERVISOR, Weight levothyroxine, 1 tablet(s), Oral, daily before breakfast, 30 tablet(s), 5, 5, [id number], [id number], 176, cm, 06/10/23 10:57:00 CASTING SUPERVISOR, Height, 140, kg, 06/10/23 10:57:00 CASTING SUPERVISOR, Weight Follow Up Follow Up with??Karen Díaz DO When??Within 3 months Where: [facility] [address] [facility] [place] [address]- Problem List/Past Medical History Ongoing Allergic rhinitis [...] tablet(s) By mouth daily. 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 Workplace hazards: Sitting toomuch., 10/02/2020 Home/Environment Lives [...] Event Result?? Date/Time?? Oxygen Saturation 98 % 06/10/23 10:57:00 ? Voice to Text Technology Disclaimer This note may contain text inserted via Dragon or other voice to text assistive technology and travel cota, variances may occur. Patient Care team information Care Team Personnel Name: Karen Díaz DO Position: Physician - Internal Medicine Member Role: Primary Care Physician Address: Address: [address] [place] [address] [address]ann [address] [place] [phone] Name: Anel ManP C Position: AMB SHAREPOINT TRAINER/PA Member Role: Nurse Practitioner Address: Address: [address] [facility] [address], [place] [phone] Name: Berenice Ivory Com Writer Position: Population Health Coordinator Member Role: Population Health Coordinator Name: Karen Díaz DO Position: Physician - Internal Medicine Med Service: Business [employer] Dean Gauge Inspector Role: Attending Physician Address: Address: [address] [place] [address] [address] [place], [place] [phone] Care Team Related Persons Name: LUCAS MARTIN Address: [address] [place], [phone]
--- OUTSIDE RECORDS SUMMARY | 2024-07-05 14:21 | XMS_ITS | Continuity of Care Document ---
Author Organization [place] [employer] [facility] Address [address] [address] [facility] [address] [id number] Care Team Providers Care Correspondence Analyst Name Role Phone Karen Díaz Primary Care Physician Encounter [facility] Financial Number [id number] Date(s): 03/21/24 - 03/21/24 [place] [facility] [address] [address] [phone] Discharge Disposition: Home or Self Care Attending Physician: Karen Díaz DO Allergies, Adverse Reactions, Alerts Substance Criticality Severity Reaction Reaction Severity Status gabapentin Physical aggres ada: aggressive or combative to self and others (for example, hits self, throws objects, punches, dangerous maneuvers with wheelchair or other objects) Combative reaction Active Assessment and Plan Future Appointments Appointment Date:05/11/2024 08:45:00 AM Scheduled Provider:Vladimir Duke MD Location:[facility] Sleep Med Appointment Type:[facility] EP CPAP Established Patient Immunizations Given and Recorded Vaccine Date Status Refusal Reason SARS-CoV-2 (COVID-19) mRNA BNT-162b2 vax 04/24/21 Recorded SARS-CoV-2 (COVID-19) mRNA BNT-162b2 vax 04/03/21 Recorded Medications Adderall 10 mg oral tablet 10 mg, 1 tablet(s), Oral, bid, 60 tablet(s), Tablet(s), 0, 0, Route to Pharmacy Electronically, [id number] [facility], [id number], 02/10/24, 176, cm, 02/10/24 10:50:00 CDT, Height, 143.18, kg, 02/10/24 10:50:00 CDT, Weight Start Date: 02/10/24 Status: Ordered albuterol 90 mcg/inh inhaler 2 puff(s), Inhalation, [id number], PRN, 1 each, Inhaler, 11, 11, shortness of breath, Route to Pharmacy Electronically, [facility]/pharmacy #[id number], [id number], 170, cm, 01/02/2021 0936, Height, 137.8, kg,01/02/2021 0936, Weight Start Date: 01/02/21 Status: Ordered DULoxetine 60 mg oral capsule 60 mg, 1 capsule(s), Oral, daily, 30 capsule(s), Capsule(s), 5, 5, Route to Pharmacy Electronically, [facility] [address] [facility], [id number], 176, cm, 02/10/24 10:50:00 CDT, Height, 143.18, kg, 02/10/24 10:50:00 CDT, Weight Start Date: 02/10/24 Status: Ordered ibuprofen 200 mg oral tablet 2-4 tablets, Oral, [id number], PRN, 120 tablet(s), Tablet(s), 0, for pain Start Date: 03/14/23 Status: Ordered levothyroxine 75 mcg (0.075 mg) oral tablet 1 tablet(s), Oral, daily before breakfast, 30 tablet(s), 5, 5, Route to Pharmacy Electronically, [facility] [address] [facility], [id number], 176, cm, 02/10/24 10:50:00 CDT, Height, 143.18, kg, 02/10/24 10:50:00 CDT, Weight Start Date: 02/10/24 Status: Ordered Gauri 0.25mg-35mcg oral tablet 1 tablet(s), Oral, daily, 84 tablet(s), 3, 3, Route to Pharmacy Electronically, [facility] [address] [facility], [id number], 176, cm, 12/09/23 10:52:00 CDT, Height, 143.8, kg, 12/09/23 10:52:00 CDT, Weight Start Date: 12/09/23 Status: Ordered omeprazole 20 mg oral delayed release tablet 20 mg, 1 tablet(s), Oral, daily, 90 tablet(s), Tab EC, 3, 3, Route to Pharmacy Electronically, [facility] [address] [facility], [id number], 176, cm, 02/10/24 10:50:00 CDT, Height, 143.18, kg, 02/10/24 10:50:00 CDT, Weight Start Date: 02/10/24 Status: Ordered Vitamin D3 5000 intl units oral capsule See Instructions, 30 capsule(s), 17, TAKE 1 CAPSULE BY MOUTH DAILY, Route to Pharmacy Electronically, [facility], [id number], Instructions Replace Required Details, 170, cm, 04/07/23 14:55:00 CDT, Height, 140.9, kg, 04/07/23 14:55:00 CDT, Weight Start Date: 04/22/23 Status: Ordered Problem List Condition Confirmation Course Effective Dates Status H ealth Status Informant Adult ADHD Confirmed Active Allergic rhinitis Confirmed Active Obesity, Class III, [...] Completed Excision of uterine polyp [address] [place] [address] Social History Social History Type Response Alcohol Former alcohol user, Household alcohol concerns: No. 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 Workplace hazards: Sitting too much. Home/Environment Lives [...] Event Display: Patient Provided Clipboard Authored Date: [id number] Ambulatory Comprehensive Intake Ambulatory Comprehensive IntakeOriginating Source: PATIENTOriginating Author: KAYLA Cerna Submission Date: October 03, 2020 9:45:07 AM -06:00 KAYLA METZGER : 1980 Sex: Female MRN(s): [id number] Ambulatory Comprehensive Intake Question Response Advance Directive Advance Directive Date Location of Advance Directive Type of Advance Directive Patient has Court Appointed Guardian No Location of Court Appointed Guardian Documentation Legal Guardian Medical Power of Care Transition Mgr Name Patient Requests Counseling Regarding Advance Directives History of Falling in Last 3 Months, Including Since Admission No Impaired Judgment/Lack of Safety Awareness No Agitation No Impaired Gait, Shuffle, Wide Base, Unsteady Walk No Ever Experience Dizziness or Vertigo No Ever Wet or Soil Yourself on Way to Bathroom No Medical Devices None Reservoir Caretaker Card Other Reservoir Caretaker Details Radiology Testing Barriers/Precautions None Menstrual Status Last Menstrual Period 2020-09-12 Previous LMP Date Last Menstrual Period Description Irregular periods, Heavy flow Menarche Onset Menarche Frequency Menarche Length Menstrual Comments PAP result HPV Coping Stressors Emotional Support Available Do You Receive Comfort From Spiritual Practices No Christian Preference Spiritual Practice Comments Weight Change >10lbs [...] voices No Marital or relationship problems No trash collector awakenings Yes Chief Complaint Need new primary [...] Member Role: Primary Care Physician Address: Address: [address] [facility] [address] [phone] Name: Man, Anel R HAND COKE DRAWER C 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 [address], [place] [id number] [place] Name: Karen Díaz DO Position: Physician - Internal Medicine Med Service: Junior Web Developer Correspondence Analyst Role: Attending Physician Address: Address: [address] [place] [address] [address] [place], [place] [phone] [place] Care Team Related Persons Name: LUCAS MARTIN Address: [address] [facility], [phone]
--- OUTSIDE RECORDS SUMMARY | 2024-07-05 14:21 | XMS_ITS | Continuity of Care Document ---
Author Organization [facility] Address [address] [place] [phone] Care Team Providers Care Wagon Washer Name Role Phone Karen Díaz Primary Care Physician Encounter [facility] Financial Number [id number] Date(s): 08/10/21 - 08/10/[address] [phone] Discharge Disposition: Home or Self Care Attending Physician: Karen Díaz D.O. Referring Physician: Karen Díaz D.O. Allergies, Adverse Reactions, Alerts Substance Reaction Severity [...] albuterol 90 mcg/inh inhaler 2 puff(s), Inhalation, [id number], PRN, 1 each, Inhaler, 11, 11, shortness of breath, Route to Pharmacy Electronically, [facility]/pharmacy #[id number], NCPDP_[id number], 170, cm, 01/02/2021 0936, Height, 137.8, kg,01/02/2021 0936, Weight Start Date: 01/02/21 Status: Ordered DULoxetine 30 mg oral delayed release capsule 1 capsule(s), Oral, daily, 90 capsule(s), 3, 0, Route to Pharmacy Electronically, [facility] [address], NCPDP_ID-[id number], 170, cm, 01/02/2021 0936, Height, 137.8, kg, 01/02/2021 0936, Weight Start Date: 02/23/21 Status: Ordered levothyroxine 50 mcg (0.05 mg) oral tablet 1 tablet(s), Oral, daily before breakfast, 30 tablet(s), 2, 2, [id number] NCPDP_ID-[id number], 177.8, cm, 04/29/2021 1502, Height, 140.16, kg, 04/29/2021 1502, Weight Start Date: 08/03/21 Status: Ordered naproxen 500 mg oral tablet 500 mg, 1 tablet(s), Oral, as needed, 0 Start Date: 10/03/20 Status: Ordered NexIUM 40 mg oral delayed release capsule 40 mg, 1 capsule(s), Oral, daily before breakfast, 30 capsule(s), Capsule(s), 0 Start Date: 10/03/20 Status: Ordered Sprintec 0.25 mg-35 mcg oral tablet 1 tablet(s), Oral, daily, 84 tablet(s), Tablet(s), 3, 3, [id number], [facility]-[id number] Start Date: 10/03/20 Status: Ordered Vitamin D3 5000 intl units oral capsule 5,000 unit(s), 1 capsule(s), Oral, daily, 100 capsule(s), Capsule(s), 3, 3, [id number], NCPDP_ID-[id number], 170, cm, 01/02/2021 0936, Height, 137.8, kg, 01/02/2021 0936, Weight Start Date: 01/02/21 Status: Ordered Problem List Condition Effective Dates Status Health Status Inform ant BMI 45.0-49.9, adult(Confirmed) Active Hyperlipidemia(Confirmed) Active Left shoulder pain(Confirmed) Active Hypovitaminosis D(Confirmed) Active Diagnosis Diagnosis Type Effective Dates Health Status Cl inical Service Informant Exposure to COVID-19 virus 08/10/21 Non-Specified Procedures Procedure Date Related Diagnosis Body Site Status Colonoscopy 2019 Completed [facility] Social History Social History Type Response Alcohol Former alcohol user, Household alcohol concerns: No. Substance Abuse Never drug userGilda substance abuse concerns: No. Smoking Status Former smoker;Never; Tobacco Cessation Counseling Requested N/A; Concerns about tobacco use in household: No; Smoker in household: No; Number of years: 2; entered on: 04/29/21 Sex
--- OUTSIDE RECORDS SUMMARY | 2024-07-05 14:21 | XMS_ITS | Continuity of Care Document ---
Author Organization [facility] Address [address] [place] [phone] Care Team Providers Care Cartography Teacher Name Role Phone Karen Díaz Primary Care Physician Encounter [facility] Financial Number [id number] Date(s): 03/19/22 - 03/19/[address] [id number] Discharge Disposition: Home or Self Care Attending Physician: Jeannie Marion Admitting Physician: Jeannie Marion Referring Physician: Jeannie Marion Allergies, Adverse Reactions, Alerts Substance Reaction Severity Status gabapentin Physical aggression: aggressive or combative to self and others (for example, hits self, throws objects, punches, dangerous maneuvers with wheelchair or other objects) Combative reaction Active Assessment and Plan Future Appointments Appointment Date:03/24/2022 03:30:00 PM Scheduled Provider:Benoit Lucia MD Location:[address] Appointment Type:SHEELA THREAD MARKER New Patient Appointment Date:05/10/2022 03:45:00 PM Scheduled Provider:Sindy Haas M.D. Location:[facility] Weight Mgmt Appointment Type:[facility] EP Established Patient Appointment Date:07/14/2022 04:00:00 PM Scheduled Provider:Sindy Haas M.D. Location:[facility] Weight Mgmt Appointment Type:[facility] Established Patient Immunizations Given and Recorded Vaccine Date Status Refusal Reason SARS-CoV-2 (COVID-19) mRNA BNT-162b2 vax 04/24/21 Recorded SARS-CoV-2 (COVID-19) mRNA BNT-162b2 vax 04/03/21 Recorded Medications albuterol 90 mcg/inh inhaler 2 puff(s), Inhalation, [id number], PRN, 1 each, Inhaler, 11, 11, shortness of breath, Route to Pharmacy Electronically, [facility]/pharmacy #[id number], NCPDP_ID-[id number], 170, cm, 01/02/2021 0936, Height, 137.8, kg,01/02/2021 0936, Weight Start Date: 01/02/21 Status: Ordered CVS VITAMIN D3 125 MCG SOFTGEL CVS VITAMIN D3 125 MCG SOFTGEL, 1 capsule(s), Oral, daily, 30 capsule(s), 2, Route to Pharmacy Electronically, [facility] 569[facility], NCPDP_[id number], 175.26, cm, 01/05/2022 1412, Height, 144, kg, 01/05/2022 1412, Weight Start Date: 01/11/22 Status: Ordered DULoxetine 30 mg oral delayed release capsule 1 capsule(s), Oral, daily, 90 capsule(s), 3, 0, Route to Pharmacy Electronically, [facility] 61316, NCPDP_[id number], 170, cm, 01/02/2021 0936, Height, 137.8, kg, 01/02/2021 0936, Weight Start Date: 02/23/21 Status: Ordered levothyroxine 75 mcg (0.075 mg) oral tablet 75 mcg, 1 tablet(s), Oral, daily before breakfast, 90 tablet(s), Tablet(s), 1, 1, Route to PharmacyElectronically, [facility]/pharmacy #[id number], NCPDP_[id number], 175.26, cm, 01/05/2022 1412, Height, 144, kg,01/05/2022 1412, Weight Start Date: 01/11/22 Status: Ordered Gauri 0.25mg-35mcg oral tablet TAKE 1 TABLET BY MOUTH EVERY DAY Start Date: 02/17/22 Status: Ordered Mounjaro 2.5 mg/0.5 mL subcutaneous solution 2.5 mg, SubQ, weekly, 4 each, Injection, 0, 0, Route to Pharmacy Electronically, [facility], NCPDP_ID-[id number], 175, cm, 02/17/2022 1439, Height, 143, kg, 02/17/2022 1439, Weight Start Date: 02/18/22 Stop Date: 03/20/22 Status: Ordered Mounjaro 5 mg/0.5 mL subcutaneous solution 5 mg, SubQ, weekly, 4 each, Injection, 0, 0, Route to Pharmacy Electronically, [place], NCPDP_ID-[id number], 175, cm, 02/17/2022 1439, Height, 143, kg, 02/17/2022 1439, Weight Start Date: 02/18/22 Stop Date: 03/20/22 Status: Ordered Mounjaro 7.5 mg/0.5 mL subcutaneous solution 7.5 mg, SubQ, weekly, 4 each, Injection, 0, 0, Route to Pharmacy Electronically, [place], OHPD_[id number], 175, cm, 02/17/2022 1439, Height, 143, kg, 02/17/2022 1439, Weight Start Date: 02/18/22 Stop Date: 03/20/22 Status: Ordered naproxen 500 mg oral tablet 500 mg, 1 tablet(s), Oral, as needed, 0 Start Date: 10/03/20 Status: Ordered NexIUM 40 mg oral delayed release capsule 40 mg, 1 capsule(s), Oral, daily before breakfast, 30 capsule(s), Capsule(s), 0 Start Date: 10/03/20 Status: Ordered omeprazole 20 mg oral delayed release tablet mg, tablet(s), 0 Start Date: 02/17/22 Status: Ordered Sprintec 0.25 mg-35 mcg oral tablet 1 tablet(s), Oral, daily, 84 tablet(s), Tablet(s), 3, 3, Route to Pharmacy Electronically, [facility]/pharmacy #[id number], OHPDP_[id number], 177.8, cm, 04/29/2021 1502, Height, 140.16, kg, 04/29/2021 1502, Weight Start Date: 08/24/21 Status: Ordered Vitamin D3 5000 intl units oral capsule 5,000 unit(s), 1 capsule(s), Oral, daily, 90 capsule(s), Capsule(s), 3, 3, Route to Pharmacy Electronically, [facility]/pharmacy #[id number], OHPDP_[id number], 175, cm, 02/17/2022 1439, Height, 143, kg, 21439, Weight Start Date: 03/03/22 Status: Ordered Problem List Condition Effective Dates Status Health Status Inform ant BMI 45.0-49.9, adult(Confirmed) Active Electrolyte and fluid disorder(Confirmed) Active Exercise-induced asthma(Confirmed) Active Hyperlipidemia(Confirmed) Active Hypothyroidism(Confirmed) Active Metabolic syndrome(Confirmed) Active Class 3 obesity(Confirmed) Active Exercise counseling(Confirmed) Active Dietary counseling and surveillance(Confirmed) Active Encounter for long-term curr ent use of medication(Confirmed) Active Left shoulder pain(Confirmed) Active Hypovitaminosis D(Confirmed) Active Procedures Procedure Date Related Diagnosis Body Site Status Colonoscopy 2019 Completed Excision of uterine polyp [address] [place] [address] Results Radiology Reports * Exam Date Time Procedure Performing Provider Status 03/19/22 7:40 AM US ABDOMEN COMPLETE Claudia Burgess onographer; Auth (Verified) Notes: (US ABDOMEN COMPLETE) Reason For Exam: fatty liver US ABDOMEN COMPLETE ABDOMEN ULTRASOUND NORMAL HISTORY: fatty liver FINDINGS: The gallbladder is normal. No gallstones are present. There is no evidence of gallbladder wall thickening or pericholecystic fluid. The common bile duct is normal in caliber measuring up to 3mm. Increased echogenicity liver suggests fatty infiltration. No large mass or cyst.. The visualized pancreas is unremarkable. The kidneys are normal in size and configuration. The right kidney measures 10.5cm and the left kidney measures 10.4cm. The spleen measures 11.4cm. The aorta and IVC are within normal limits. IMPRESSION: Hepatic steatosis. Gallbladder and biliary tree within normal limits. RR Dictating Physician: Josue Bustos M.D. Releasing Physician: Josue Bustos M.D. Signature Electronically Authorized Authorized Date/Time: 19-MAR-2022 08:15 am Social History Social History Type Response Alcohol Former alcohol user, Household alcohol concerns: No. Substance Abuse Never drug user, Gilda hold substance abuse concerns: No. Smoking Status Former smoker;Never; Tobacco Cessation Counseling Requested N/A; Concerns about tobacco use in household: No; Smoker in household: No; Number of years: 2; entered on: 04/29/21 Sex US Abdomen * Josue Bustos M.D.: VERIFY, VERIFY, PERFORM Event Display: Interpretation: Authored Date: [id number] ABDOMEN ULTRASOUND NORMAL HISTORY: fatty liver FINDINGS: The gallbladder is normal. No gallstones are present. There is no evidence of gallbladder wall thickening or pericholecystic fluid. The common bile duct is normal in caliber measuring up to 3mm. Increased echogenicity liver suggests fatty infiltration. No large mass or cyst.. The visualized pancreas is unremarkable. The kidneys are normal in size and configuration. The right kidney measures 10.5cm and the left kidney measures 10.4cm. The spleen measures 11.4cm. The aorta and IVC are within normal limits. IMPRESSION: Hepatic steatosis. Gallbladder and biliary tree within normal limits. RR Dictating Physician: Josue Bustos M.D. Releasing Physician: Josue Bustos M.D. Signature Electronically Authorized Authorized Date/Time: 19-MAR-2022 08:15 am Care Team Personnel Name: Karen Díaz D.O. Address: Address: [address] [place] [address] [address] [phone]
--- OUTSIDE RECORDS SUMMARY | 2024-07-05 14:21 | XMS_ITS | Continuity of Care Document ---
Author Organization [facility] Address [address] [address] [facility] [address] [id number] Care Team Providers Care Shut Off Worker Name Role Phone Karen Díaz Primary Care Physician Encounter [facility] Financial Number [id number] Date(s): 03/14/23 - 03/14/[address] [facility] [address] [address] [id number] Encounter Diagnosis Anxiety and depression(Discharge Diagnosis) - 03/14/23 LEVI (obstructive sleep apnea)(Discharge Diagnosis) - 03/14/23 Obesity, Class III, BMI 40-49.9 (morbid obesity)(Discharge Diagnosis) - 03/14/23 Fibromyalgia(Discharge Diagnosis) - 03/14/23 Discharge Disposition: Home or Self Care Attending Physician: Karen Díaz DO Allergies, Adverse Reactions, Alerts Substance Reaction Severity Status gabapentin Physical aggression: aggressive or combative to self and others (for example, hits self, throws objects, punches, dangerous maneuvers with wheelchair or other objects) Combative reaction Active Assessment and Plan Future Appointments Appointment Date:04/07/2023 03:00:00 PM Scheduled Provider:Karen Díaz DO Location:[facility] Appointment Type:[facility] EP Established Patient Immunizations Given and Recorded Vaccine Date Status Refusal Reason SARS-CoV-2 (COVID-19) mRNA BNT-162b2 vax 04/24/21 Recorded SARS-CoV-2 (COVID-19) mRNA BNT-162b2 vax 04/03/21 Recorded Medications albuterol 90 mcg/inh inhaler 2 puff(s), Inhalation, [id number], PRN, 1 each, Inhaler, 11, 11, shortness of breath, [id number] NCPDP_ID-[id number], 170, cm, 01/02/2021 0936, Height, 137.8, kg,01/02/2021 0936, Weight Start Date: 01/02/21 Status: Ordered DULoxetine 60 mg oral capsule 60 mg, 1 capsule(s), Oral, daily, 30 capsule(s), Capsule(s), 5, 5, [id number] [id number], 168, cm, 03/14/23 13:03:00 CDT, Height, 1 40.5, kg, 03/14/23 13:03:00 CDT, Weight Start Date: 03/14/23 Status: Ordered ibuprofen 200 mg oral tablet 2-4 tablets, Oral, p5xpylf, PRN, 120 tablet(s), Tablet(s), 0, for pain Start Date: 03/14/23 Status: Ordered levothyroxine 75 mcg (0.075 mg) oral tablet 1 tablet(s), Oral, daily before breakfast, 30 tablet(s), 5, 5, [id number] [id number], 168, cm, 03/14/23 13:03:00 CDT, Height, 140.5, kg, 03/14/23 13:03:00 CDT, Weight Start Date: 03/14/23 Status: Ordered Gauri 0.25mg-35mcg oral tablet 1 tablet(s), Oral, daily, 84 tablet(s), 3, 3, [id number] NCPDP_ID-[id number], 176, cm, 09/07/2022 1456, Height, 137.2, kg, 09/07/2022 1456, Weight Start Date: 09/10/22 Status: Ordered omeprazole 20 mg oral delayed release tablet 20 mg, 1 tablet(s), Oral, daily, 0 Start Date: 02/17/22 Status: Ordered Vitamin D3 5000 intl units oral capsule 5,000 unit(s), 1 capsule(s), Oral, daily, 90 capsule(s), Capsule(s), 3, 3, Route to Pharmacy Electronically, [facility][id number][id number], 175, cm, 02/17/2022 1439, Height, 143, kg, [...] Completed Excision of uterine polyp [address] [place] [address] Vital Signs Most recent to oldest [Reference Range]: 1 Temperature Temporal Artery [35.8-38 Deg C] 36.2 DegC (03/14/23 1:03 PM) Peripheral Pulse Rate [60-100 bpm] 82 bp m (03/14/23 1:03 PM) Respiratory Rate [14-22 br/min] 18 br/mi n (03/14/23 1:03 PM) Blood Pressure [89-139/60-90 mm Hg] 112/ 84mm Hg (03/14/23 1:03 PM) Oxygen Flow Rate 0 L/min (03/14/23 1:03 PM) Height 168 cm (03/14/23 1:03 PM) Weight 140.5 kg (03/14/23 1:03 PM) Social History Social History Type Response Alcohol Former alcohol user, Household alcohol concerns: No. Substance Abuse Never drug user, Gilda duong substance abuse concerns: No. Smoking Status Former smoker;Never; Tobacco Cessation Counseling Requested N/A; Concerns about tobacco use in household: No; Smoker in household: No; Number of years: 2; entered on: 05/07/22 Sex Hospital Discharge Instructions Patient Education 03/14/2023 13:56:30 Anxiety Reaction Anxiety??Reaction Anxiety is the feeling [...] by rest and mild pain reliever ?? 6542-2058 [employer]. All rights reserved. This information is not intended as a substitute for professional medical care. Always follow your healthcare professional's instructions. 03/14/2023 13:56:26 BMI 40+ () [facility] Introduction (BMI 40+) Excess weight is a major risk factor 69 medical disease and 18 cancers. Obesity and excess weight is a chronic medical condition that will require follow up with your team and will be an ongoing process. Our primary goal is to work with you to best reduce your risk of developing another serious medical condition. This can be accomplished through a combination of physical activity, good hydration, diet and medications, all of which will be equally important to our success. Exercise with a friend. When activity is fun, you're more likely to stick with it. Physical Activity ??? Physical activity is morton for maintaining weight loss. It is also extremely important for the health of your cardiovascular system. ??? Begin slowly and increase your activity as you feel able. It is often best to schedule a time of your day that will work best in order to promote consistency. ??? Simple ways to increase your activity include taking the stairs rather than the elevator, parking your car farther away and walking to your destination, walking laps around your house after meals. It is not how vigorous, but the amount of time that matters. Hydration ??? Water is extremely important for gaining lean muscle mass and promoting satiety. ??? You need 80 oz of water per day (about 8 glasses). ??? Caffeinated beverages do not count towards your daily water goal. Diet You will be given a food list during your initial visits. It is best to stick to this list as much a ??? Begin by walking 10 minutes most days. ??? Add more time and speed to your walk. Build up as you feel able. ??? Try to walk briskly at least 30 minutes most days. If needed, you can break this into 2 shortersessions. Medications ? 1107-[address] [place] [address]. All rights reserved. This information is not intended as a substitute for professional medical care. Always follow your healthcare professional's instructions. Note * Event Display: Patient Provided Clipboard Authored Date: [id number] Ambulatory Comprehensive Intake Ambulatory Comprehensive IntakeOriginating Source: PATIENTOriginating Author: KAYLA Cerna Submission Date: October 03, 2020 9:45:07 AM -06:00 KAYLA METZGER : 1980 Sex: Female MRN(s): [id number] Ambulatory Comprehensive Intake Question Response Advance Directive Advance Directive Date Location of Advance Directive Type of Advance Directive Patient has Court Appointed Guardian No Location of Court Appointed Guardian Documentation Legal Guardian Medical Power of Local Flatbed Driver Name Patient Requests Counseling Regarding Advance Directives History of Falling in Last 3 Months, Including Since Admission No Impaired Judgment/Lack of Safety Awareness No Agitation No Impaired Gait, Shuffle, Wide Base, Unsteady Walk No Ever Experience Dizziness or Vertigo No Ever Wet or Soil Yourself on Way to Bathroom No Medical Devices None Roof Tile Layer Card Other Roof Tile Layer Details Radiology Testing Barriers/Precautions None Menstrual Status Last Menstrual Period 2020-09-12 Previous LMP Date Last Menstrual Period Description Irregular periods, Heavy flow Menarche Onset Menarche Frequency Menarche Length Menstrual Comments PAP result HPV Coping Stressors Emotional Support Available Do You Receive Comfort From Spiritual Practices No Hinduism Preference Spiritual Practice Comments Weight Change >10lbs [...] voices No Marital or relationship problems No browning processor awakenings Yes Chief Complaint Need new primary [...] Authored Date: Patient Information Name:KAYLA MARTIN Address: [address] [place] [phone] Sex:Female Date of :1980 Emergency Contact:LUCAS MARTIN Location:[email or web address] Registration Date and Time:03/14/2023 13:00 CDT Primary Care Physician: Karen Díaz DO, Attending Physician: Karen Díaz DO, Chief Complaint Mood follow up; Migraines; Thyroid History of Present Illness Patient is a 42 y.o. female here to discuss: 1) Depression- She has a PHQ 9 score is 24 today.?? The duloxetine was just adjusted up from 30mg to 60mg daily last week. She is having a lot of stress at work.?? She was moved from [place] to [place]. The campus is notset up appropriately.?? 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 She feels that things are not being run well.?? She had a falling out with her boss.?? The situation is not in her control.?? Every day last week she was crying and she does not want to but she was feeling like shutting down. She is still having some marital stressors.?? She has $14 in her bank acct and her fridge is empty.?? Her spent money on his son's birthday instead of the essentials.?? She is no longer really interacting with her step son-her will not let her co=parent.?? Her adult ADHD scale is equivocal. She is in a step mom support group on facebook.?? She is itz-ing, which means she is trying to get him to be more independent.?? He is not a very capable 9 y.o. and her will not let her be a parent.?? She is not feeling comfortable at home or work. She wants to quit everything-her job/relationship.?? Her calls into work and he is a line locator.?? It is a hard job but he calls in some times. She is having so much pain and is in pain even with doing chores=dishes and laundry.?? That limits her job prospects. She feels like everything matters and nothing matters at the time same time.?? She is always the person who is responsible and gets things done at both home and work. Her work does not offer FMLA.?? She will not be able to take a leave of absence. 2) LEVI on CPAP-She states she has been give a CPAP and it is really hard for her to adjust to.?? She is not sleeping well. She has developed anxiety.?? Her wants her to wear the CPAP?? and she will be sleeping in the recliner because she can not stand to wear the CPAP. She is having troublewith the nasal pillows.?? Her also has issues with snoring and has not been seen.?? She does not feel supported. ?? She was able to go to the [employer] the other night-she was able to go with her and her parents.?? Her parents paid for it. Review of Systems ?CONSTITUTIONAL ? Fever?No.? Chills?No.?? Fatigue?No.?? Decreased appetite?No.?? Have youlost or gained weight in the past year?No.?? Recent Illness?No.? EYES ? Change in Vision?No.?? Glasses or contacts?Yes.? ENT ? Problems hearing?No.?? Ear pain?No.?? Sore Throat?No.?? Hoarse voice?No.? Sinus pain?No.?? Post nasal drip?No.?? Runny nose?No.?? Congestion?No.? CARDIOVASCULAR ? Chest Pain?No.? Swelling in Legs?No.?? Skipping heart beats?No.? RESPIRATORY ? Cough?No.?? Shortness of Breath while resting?No.? GASTROINTESTINAL ? Reflux?Yes.?? Nausea?No.?? Vomiting?No.?? Abdominal pain?No.? GENITOURINARY ? Problems urinating?No.? MUSCULOSKELETAL ? Joint Pain?Yes.?? Red or swollen joints?No.? NEUROLOGY ? Dizziness?No.?? Headaches?No.?? Snoring?Yes.? PSYCHIATRIC ? Depression?Yes.?? Anxiety?Yes.?? Problems concentrating?Yes.?? Problems sleeping?Yes.?? Vitals and Measurements Vital Signs Height: 168 cm Height Inches Conversion: 66.1 Weight: 140.5 kg Weight in Pounds (kg conversion): 309.1 Body Surface Area: 2.5606 m2 Body Mass Index: 49.78 kg/m2 Temperature Temporal Artery: 36.2 DegC Systolic Blood Pressure: 112 mm Hg Diastolic Blood Pressure: 84 mm Hg Peripheral Pulse Rate: 82 bpm Respiratory Rate: 18 br/min Oxygen Saturation: 98 % Oxygen Flow Rate: 0 L/min HRA [...] EXAM: alert and oriented x 3. SKIN: mild acne PSYCH: tearful, anxious.?? Depressed.?? Good insight and judgement. Assessment/Plan 1.??Anxiety and depression Chronic.?? Not well controlled.?? Very symptomatic.?? Will increase the dose of cymbalta to 60mg daily. Try meditation, yoga, writing in a journal or making a video journal, and stress management.?? Daily exercise may help augment mood treatment.?? Recommend seeing a counselor as well to help manage mood. Call 911 or seek emergency medical care for thoughts of SI/HI. Ordered: .37369 Office Visit Level 4 Est ?? 2.??LEVI (obstructive sleep apnea) Chronic.?? not well controlled.?? CPAP at home, not able o sleep well due to mask type.?? When ableto afford will call the medical supply to change mask types. Ordered: .27825 Office Visit Level 4 Est ?? 3.??Obesity, Class III, BMI 40-49.9 (morbid obesity) Chronic.?? Not well controlled.?? Unable to make changes easily due to a partner who is not willingto make diet changes.?? She is limited physically due to chronic pain and fibromyalgia. Encourage low fat heart healthy diet rich in good fats, lean meats, and fruits and vegetables-consider the Mediterranean diet or a whole foods plant based diet.?? Try to get 45-60 minutes of aerobic activity most days of the week.? Ordered: .77076 Office Visit Level 4 Est ?? 4.??Fibromyalgia Chronic.?? Flared up due to stress.?? Will increase the duloxetine from 30mg to 60mg. Recommend daily low impact exercises like walking, swimming, yoga, and eva chi.?? Recommend continued daily movement but avoid high impact activities. Consider a diet high in anti-inflammatories (tumeric, whole foods, unprocessed, more fruits and veggies).?? Ordered: .40071 Office Visit Level 4 Est ?? Orders: DULoxetine, 60 mg, 1 capsule(s), Oral, daily, 30 capsule(s), Capsule(s), 5, 5, [id number] [id number], 168, cm, 03/14/23 13:03:00 CDT, Height, 140.5, kg, 03/14/23 13:03:00 CDT, Weight levothyroxine, 1 tablet(s), Oral, daily before breakfast, 30 tablet(s), 5, 5, [id number], [id number], 168, cm, 03/14/23 13:03:00 CDT, Height, 140.5, kg, 03/14/23 13:03:00 CDT, Weight Follow Up Follow Up with??Karen Díaz DO When??Within 1 month Where: [facility], [facility] [address] [facility] [place] [address]- Problem List/Past Medical History Ongoing Allergic rhinitis [...] Procedure/Surgical History ???Colonoscopy (2019)???Excision of uterine polyp (2016) Medications Unchanged albuterol (albuterol 90 mcg/inh inhaler)2 [...] tablet(s) By mouth daily. 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 Workplace hazards: Sitting to[place]uch., 10/02/2020 Home/Environment Lives [...] Result?? Date/Time?? Oxygen Flow Rate 0 L/min 03/14/23 13:03:00 Oxygen Saturation 98 % 03/14/23 13:03:00 ? Voice to Text Technology Disclaimer This note may contain text inserted via Dragon or other voice to text assistive technology and ict developer, variances may occur. Patient Care team information Care Team Personnel Name: Karen Díaz DO Position: Physician - Internal Medicine Member Role: Primary Care Physician Address: Address: [address] [place] [address] [place], [place] [phone] Name: Anel Man Demarcus STANTONP C Position: AMB BLOCK BREAKER OPERATOR/PA Member Role: Nurse Practitioner Address: Address: [address] [facility] [address], [place] [phone] Name: Berenice Ivory Cleaning Supervisor Position: Population Health Coordinator Member Role: Population Health Coordinator Name: Karen Díaz DO Position: Physician - Internal Medicine Med Service: Hvac Commercial Salesperson Shut Off Worker Role: Attending Physician Address: Address: [address] [place] [address] [address] [place], [place] [phone] Care Team Related Persons Name: LUCAS MARTIN Address: [address] [place] [phone]
--- OUTSIDE RECORDS SUMMARY | 2024-07-05 14:21 | XMS_ITS | Continuity of Care Document ---
Author Organization [facility] Address [address] [facility] [address] [id number] Care Team Providers Care Plating Inspector Name Role Phone Karen Díaz Primary Care Physician Encounter [facility] Financial Number [id number] Date(s): 02/10/24 - 02/10/24 [facility] [address] [facility] [address] [id number] Encounter Diagnosis Hypothyroidism(Discharge Diagnosis) - 02/10/24 Anxiety and depression(Discharge Diagnosis) - 02/10/24 Adult ADHD(Discharge Diagnosis) - 02/10/24 Fibromyalgia(Discharge Diagnosis) - 02/10/24 GERD (gastroesophageal reflux disease)(Discharge Diagnosis) - 02/10/24 Discharge Disposition: Home or Self Care Attending Physician: Karen Díaz DO Allergies, Adverse Reactions, Alerts Substance Criticality Severity Reaction Reaction Severity Status gabapentin Physical aggres ada: aggressive or combative to self and others (for example, hits self, throws objects, punches, dangerous maneuvers with wheelchair or other objects) Combative reaction Active Assessment and Plan Future Appointments Appointment Date:03/21/2024 08:20:00 AM Scheduled Provider:Karen Díaz DO Location: Fam Med Appointment Type:CC EP Established Patient Appointment Date:05/11/2024 08:45:00 AM Scheduled Provider:Vladimir Duke MD Location:[facility] Sleep Med Appointment Type:[facility] EP CPAP Established Patient Immunizations Given and Recorded Vaccine Date Status Refusal Reason SARS-CoV-2 (COVID-19) mRNA BNT-162b2 vax 04/24/21 Recorded SARS-CoV-2 (COVID-19) mRNA BNT-162b2 vax 04/03/21 Recorded Medications Adderall 10 mg oral tablet 10 mg, 1 tablet(s), Oral, bid, 60 tablet(s), Tablet(s), 0, 0, Route to Pharmacy Electronically, [id number] [facility], [id number], 02/10/24, 176, cm, 02/10/24 10:50:00 CDT, Height, 143.18, kg, 02/10/24 10:50:00 CDT, Weight Start Date: 02/10/24 Status: Ordered albuterol 90 mcg/inh inhaler 2 puff(s), Inhalation, [id number], PRN, 1 each, Inhaler, 11, 11, shortness of breath, Route to Pharmacy Electronically, [facility]/pharmacy #[id number], CAPDP_[id number], 170, cm, 01/02/2021 0936, Height, 137.8, kg,01/02/2021 0936, Weight Start Date: 01/02/21 Status: Ordered DULoxetine 60 mg oral capsule 60 mg, 1 capsule(s), Oral, daily, 30 capsule(s), Capsule(s), 5, 5, Route to Pharmacy Electronically, [facility] [id number] [facility], [id number], 176, cm, 02/10/24 10:50:00 CDT, Height, 143.18, kg, 02/10/24 10:50:00 CDT, Weight Start Date: 02/10/24 Status: Ordered ibuprofen 200 mg oral tablet 2-4 tablets, Oral, [id number], PRN, 120 tablet(s), Tablet(s), 0, for pain Start Date: 03/14/23 Status: Ordered levothyroxine 75 mcg (0.075 mg) oral tablet 1 tablet(s), Oral, daily before breakfast, 30 tablet(s), 5, 5, Route to Pharmacy Electronically, [facility] [address] [facility], [id number], 176, cm, 02/10/24 10:50:00 CDT, Height, 143.18, kg, 02/10/24 10:50:00 CDT, Weight Start Date: 02/10/24 Status: Ordered Gauri 0.25mg-35mcg oral tablet 1 tablet(s), Oral, daily, 84 tablet(s), 3, 3, Route to Pharmacy Electronically, [place] [address] [facility], [id number], 176, cm, 12/09/23 10:52:00 CDT, Height, 143.8, kg, 12/09/23 10:52:00 CDT, Weight Start Date: 12/09/23 Status: Ordered omeprazole 20 mg oral delayed release tablet 20 mg, 1 tablet(s), Oral, daily, 90 tablet(s), Tab EC, 3, 3, Route to Pharmacy Electronically, [place] [address] [facility], [id number], 176, cm, 02/10/24 10:50:00 CDT, Height, 143.18, kg, 02/10/24 10:50:00 CDT, Weight Start Date: 02/10/24 Status: Ordered Vitamin D3 5000 intl units oral capsule See Instructions, 30 capsule(s), 17, TAKE 1 CAPSULE BY MOUTH DAILY, Route to Pharmacy Electronically, [id number], [id number], Instructions Replace Required Details, 170, cm, 04/07/23 [...] Completed Excision of uterine polyp 2016 [facility] Vital Signs Most recent to oldest [Reference Range]: 1 Temperature Temporal Artery [35.8-38 Deg C] 36.5 DegC (02/10/24 10:50 AM) Peripheral Pulse Rate [60-100 bpm] 83 bp m (02/10/24 10:50 AM) Blood Pressure [89-139/60-90 mm Hg] 112/ 78mm Hg (02/10/24 10:50 AM) Height 176 cm (02/10/24 10:50 AM) Weight 143.18 kg (02/10/24 10:50 AM) Social History Social History Type Response Alcohol Former alcohol user, Household alcohol concerns: No. 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 Workplace hazards: Sitting too much. Home/Environment Lives [...] 06/10/23 Sex Hospital Discharge Instructions Patient Education 02/10/2024 12:53:22 Managing Fibromyalgia Managing Fibromyalgia SMALL: BIG: Fibromyalgia is a chronic illness that causes pain in specific points on the body, stiffness, and constant tiredness (fatigue). But it doesn???t have to keep you from doing what you enjoy. You can feel better. You and your healthcare provider can work together to develop a plan. Take medicines as directed You may be given medicines??to help reduce pain and improve sleep. Several medications are approved to treat fibromyalgia. Two were originally designed to treat depression. They are duloxetine, and??milnacipran.??A third, called pregaballin, was developed to treat nerve pain. Other medicines??include pain relievers such as acetaminophen or stronger opioids. These may be prescribed short term. Nonsteroidal anti-inflammatory drugs??(NSAIDs)??are used to relieve pain. These??include ibuprofen and naproxen. Get exercise Gentle exercise can help lessen your pain. Try these tips: ???Choose activities that are gentle on your joints, such as walking, biking, and swimming or otherwater exercises. ???Don???t push yourself too hard. Build up your strength and endurance slowly, over time. ???Stick to it. For the most relief, exercise should become part of your daily life. Get a good night???s rest To help you get more sleep, try the tips below: ???Sleep only in a bed, not on a couch or chair. ???Don???t watch TV, read, or work in bed. ???Go to bed and get up at the same time each day. ???Try not to take naps. ???Don???t use??alcohol, caffeine, or tobacco for at least 3 hours before going to bed. ???Don???t drink??fluids in the evening to avoid having to get up to urinate. Other things you can do No one knows what causes fibromyalgia. But stress, poor eating habits, and extra weight can make itworse. These tips may help you feel better: ???Eat a balanced diet with plenty of fruits and vegetables, whole grains, lean protein, and low-fat or nonfat dairy products. ???Maintain a healthy weight. ???Learn ways to reduce or manage the stress in your life. ???Ask your healthcare provider for resources to help you make changes. Or check out the resources below. Resources ???Arthritis Foundation?? www.arthritis.org ???National Fibromyalgia Association?? www.fmaware.org ???Stateless Fibromyalgia Syndrome Association?? www.afsafund.org ?? 3557-3425 [employer]. All rights reserved. This information is not intended as a substitute for professional medical care. Always follow your healthcare professional's instructions. 02/10/2024 12:53:20 Back Care Tips Back Care Tips?? Caring for your back These are things you can do to prevent a recurrence of acute back pain and to reduce symptoms from chronic back pain: ???Stay at a healthy weight. If you are overweight, losing weight will help most types of back pain. ???Exercise is an important part of recovery from most types of back pain. The muscles behind and in front of the spine support the back. This means strengthening both the back muscles and the abdominal muscles will provide better support for your spine.?Swimming and brisk walking are good overall exercises to improve your fitness level. ???Practice safe lifting methods (see below). ???Practice good posture when sitting, standing, and walking. Don't sit for a long time. This puts more stress on the lower back than standing or walking. ???Wear quality shoes with good arch support. Foot and ankle alignment can affect back symptoms. Don't wear high heels. ???Therapeutic massage can help relax the back muscles without stretching them. ???During the first 24 to 72 hours after an acute injury or flare-up of chronic back pain, put an ice pack on the painful area for 20 minutes and then remove it for 20 minutes. Do thisover a period of 60 to 90 minutes, or several times a day. As a safety precaution, don't use a heating pad at bedtime. Sleeping on a heating pad can lead to skin noriega or tissue damage. ???You can alternate using ice and heat. Medicines Talk with your healthcare provider before using medicines, especially if you have other health problems or are taking other medicines. ???You may use shkh-vln-huapksj medicines, such as acetaminophen, ibuprofen, or naprosyn to controlpain, unless your healthcare provider prescribed other pain medicine. Talk with your healthcare provider before taking any medicines if you have a chronic condition such as diabetes, liver or kidney disease, stomach ulcers, or digestive bleeding, or are taking blood thinners. ???Be careful if you are given prescription pain medicines, opioids, or medicine for muscle spasm. They can cause drowsiness, and affect your coordination, reflexes, and judgment. Don't drive or operate heavy machinery while taking these types of medicines. Take prescription pain medicine only as prescribed by your healthcare provider. Lumbar stretch This simple stretch will help relax muscle spasm and keep your back more limber. If exercise makes your back pain worse, don???t do it. ???Lie on your back with your knees bent and both feet on the ground. ???Slowly raise your left knee to your chest as you flatten your lower back against the floor. Holdfor 5 seconds. ???Relax and repeat the exercise with your right knee. ???Do 10 of these exercises for each leg. Safe lifting method ???Don???t bend over at the waist to lift an object off the floor.?? Instead, bend your knees and hips in a squat.?Keep your back and head upright ???Hold the object close to your body, directly in front of you. ???Straighten your legs to lift the object.?Lower the object to the floor in the reverse fashion. ???If you must slide something across the floor, push it. Posture tips Sitting Sit in chairs with straight backs or low-back support. Keep your knees lower than your hips, with your feet flat on the floor. When driving, sit up straight. Adjust the seat forward so you are not leaning toward the steering wheel.?? A small pillow or rolled towel behind your lower back may help if you are driving long distances.?? Standing When standing for long periods, shift most of your weight to one leg at a time. Switch legs every few minutes.?? Sleeping The best way to sleep is on your side with your knees bent. Put a low pillow under your head to support your neck in a neutral spine position. Don't use thick pillows that bend your neck to one side.Put a pillow between your legs to further relax your lower back. If you sleep on your back, put pillows under your knees to support your legs in a slightly flexed position. Use a firm mattress. If your mattress sags, replace it, or use a 1/2-inch plywood board under the mattress to add support. Follow-up care Follow up with your??healthcare provider, or as advised. If X-rays, a CT scan or an MRI scan were taken, they may be reviewed by a radiologist. You will be told of any new findings that may affect your care. Call 911 Call 911 if any of the following occur: ???Trouble breathing ???Confusion ???Very drowsy ???Fainting or loss of consciousness ???Rapid or very slow heart rate ???Loss of?? bowel or bladder control When to seek medical advice Call your healthcare provider right away??if any of the following occur: ???Pain becomes worse or spreads to your arms or legs ???Weakness or numbness in one or both arms or legs ???Numbness in the groin area ?? 9030-2278 [employer]. All rights reserved. This information is not intended as a substitute for professional medical care. Always follow your healthcare professional's instructions. 02/10/2024 12:53:18 Back and Neck Pain, General General Neck and Back Pain Both neck and back pain are usually caused by injury to the muscles or ligaments of the spine. Sometimes the disks that separate each bone of the spine may cause pain by pressing on a nearby nerve. Back and neck pain may appear after a sudden twisting or bending force (such as in a car accident), or sometimes after a simple awkward movement. In either case, muscle spasm is often present and adds to the pain. Acute neck and back pain usually gets better in 1 to 2 weeks. Pain related to disk disease, arthritis in the spinal joints, or narrowing of the spinal canal (spinal stenosis) can become chronic and last for months or years. Back and neck pain are common problems. Most people feel better in 1 or 2 weeks, and most of the rest in 1 to 2 months. Most people can remain active. People have and??describe pain differently. ???Pain can be sharp, stabbing, shooting, aching, cramping, or burning ???Movement, standing, bending, lifting, sitting, or walking may worsen the pain ???Pain can be limited to one spot or area, or it can be more generalized ???Pain can spread upward, downward, to the front, or go down your arms or legs ???Muscle spasm may occur. Most of the time mechanical problems with the muscles or spine cause the pain. It's usually caused by an injury, whether known or not, to the muscles or ligaments. Pain without an injury is not common. But it can sometimes be caused by a health problem such as kidney stones or an infection. Pain isusually related to physical activity such as sports, exercise, work, or normal activity. Sometimes it can occur without an identifiable cause. This can happen simply by stretching or moving wrong, without noting pain at the time. Other causes include: ???Overexertion, lifting, pushing, pulling incorrectly or too aggressively. ???Sudden twisting, bending or stretching from an accident (car or fall), or accidental movement. ???Poor posture ???Poor conditioning, lack of regular exercise ???Spinal disc disease or arthritis ???Stress ???, or illness like appendicitis, bladder or kidney infection, pelvic infections ??Home care ???For??neck pain:??Use a comfortable pillow that supports the head and keeps the spine in a neutral position. The position of the head should not be tilted forward or backward. ???When in bed, try to find a position of comfort. A firm mattress is best. Try lying flat on your back with pillows under your knees. You can also try lying on your side with your knees bent up towards your chest and a pillow between your knees. ???At first, don't try to stretch out the sore spots. If there is a strain, it's not like the good soreness you get after exercising without an injury. In this case, stretching may make it worse. ???Don't sit for long periods, as in??long car rides or??other travel. This puts more stress on thelower back than standing or walking. ???During the first 24 to 72 hours after an injury, apply an ice pack to the painful area for 20 minutes and then remove it for 20 minutes over a period of 60 to 90 minutes or several times a day.?You can alternate ice and heat therapies. Talk with your healthcare provider about the best treatment for your back or neck pain. As a safety precaution, don't use a heating pad at bedtime. Sleeping with a heating pad can lead to skin noriega or tissue damage. ???Therapeutic massage can help relax the back and neck muscles without stretching them. ???Be aware of safe lifting methods and don't lift anything over 15 pounds until all the pain is gone. Medicines Talk to your healthcare provider before using medicine, especially if you have other medical problems or are taking other medicines. ???You may use pata-szz-elmhgex medicine to control pain, unless another pain medicine was prescribed. Talk with your doctor first if you have chronic conditions like diabetes, liver or kidney disease, stomach ulcers, gastrointestinal bleeding, or are taking blood thinner medicines. ???Be careful if you are given pain medicines, narcotics, or medicine for muscle spasm. They can cause drowsiness, and can affect your coordination, reflexes, and judgment. Don't drive or operate heavy machinery. Follow-up care Follow up with your healthcare provider, or as advised. You may need physical therapy or further tests. If X-rays were taken, you will be told of any new findings that may affect your care. Call 911 Call 911 if any of the following occur: ???Trouble breathing ???Confusion ???Very drowsy or trouble awakening ???Fainting or loss of consciousness ???Rapid or very slow heart rate ???Loss of bowel or bladder control When to seek medical advice Call your healthcare provider right away if any of these occur: ???Pain becomes worse or spreads into your arms or legs ???Weakness, numbness or pain in one or both arms or legs ???Numbness in the groin area ???Trouble walking ???Fever of 100.4??F (38??C) or higher, or as directed by your healthcare provider ?? 4814-9884 [employer]. All rights reserved. This information is not intended as a substitute for professional medical care. Always follow your healthcare professional's instructions. 02/10/2024 12:53:17 Attention-Deficit/Hyperactivity Disorder (ADHD) in Adults Attention-Deficit/Hyperactivity Disorder (ADHD) in Adults You???ve always had trouble concentrating. Your mind wanders, and it???s hard to finish tasks. As aresult, you didn???t do well in school. And now, you often struggle with your job. Sometimes this makes you ray or depressed. These may be symptoms of attention-deficit/hyperactivity disorder (ADHD). To find out more, talk to your healthcare provider. He or she can offer guidance and support. Symptoms of ADHD in adults For an adult to be diagnosed with ADHD, the symptoms must have been present since??childhood. The symptoms may include: ???Trouble thinking things through ???Low self-esteem ???Depression ???Trouble holding a job ???Memory problems ???Problems with a marriage or relationship ???Lack of discipline ???Trouble finishing tasks or projects What is ADHD? Attention-deficit/hyperactivity disorder makes it hard to focus your mind. You may daydream a lot. And you may be restless much of the time. As a result, you may have trouble with detailed or boring work. And it may be hard to stick with one project for very long. You also may forget things. Or, you may miss morton points during a lecture or meeting. You may even have trouble sitting through a [employer] concert. At times, you may feel frustrated or angry. This can affect your relationships with others. Who does it affect? ADHD starts in childhood. Sometimes, your symptoms may improve as you get older. But they also may persist into your adult years. ADHD is often thought of as a ???kid???s problem.?? That???s why it???s often missed in adults. In fact, many parents learn they have ADHD when their children are diagnosed. What causes it? The exact cause of ADHD isn???t known. The disorder does run in families. Having one parent with ADHD makes it more likely you???ll have it too. And the part of your brain that controls attention maybe involved. Certain brain chemicals that are out of balance may also play a role. What can be done? The first step is finding out if you have ADHD. Your doctor will use special guidelines to diagnosethe disorder. Most adults with ADHD are greatly helped by some combination of medicine, therapy andcoaching. To learn more ???Children and Adults with Attention-Deficit/Hyperactivity Disorder (BRIANA) https://briana.org/ ???Attention Deficit Disorder Association (ADDA) https://add.org/ ?? [employer]. All rights reserved. This information is not intended as a substitute for professional medical care. Always follow your healthcare professional's instructions. 02/10/2024 12:53:15 Hypothyroid (HOODDM) Hypothyroidism You have been diagnosed [...] ??? Confusion or loss of consciousness ?? 5574-9588 [place] [address]. All rights reserved. This information is not intended as a substitute for professional medical care. Always follow your healthcare professional's instructions. Note * Event Display: Consent/Registration Forms * Event Display: Consent/Registration Forms * Event Display: Patient Provided Clipboard Authored Date: [id number] Ambulatory Comprehensive Intake Ambulatory Comprehensive IntakeOriginating Source: PATIENTOriginating Author: KAYLA Cerna Submission Date: October 03, 2020 9:45:07 AM -06:00 KAYLA METZGER : 1980 Sex: Female MRN(s): [id number] Ambulatory Comprehensive Intake Question Response Advance Directive Advance Directive Date Location of Advance Directive Type of Advance Directive Patient has Court Appointed Guardian No Location of Court Appointed Guardian Documentation Legal Guardian Medical Power of Wind Project Manager Name Patient Requests Counseling Regarding Advance Directives History of Falling in Last 3 Months, Including Since Admission No Impaired Judgment/Lack of Safety Awareness No Agitation No Impaired Gait, Shuffle, Wide Base, Unsteady Walk No Ever Experience Dizziness or Vertigo No Ever Wet or Soil Yourself on Way to Bathroom No Medical Devices None Jointer Machine Card Other Jointer Machine Details Radiology Testing Barriers/Precautions None Menstrual Status Last Menstrual Period 2020-09-12 Previous LMP Date Last Menstrual Period Description Irregular periods, Heavy flow Menarche Onset Menarche Frequency Menarche Length Menstrual Comments PAP result HPV Coping Stressors Emotional Support Available Do You Receive Comfort From Spiritual Practices No Rastafarian Preference Spiritual Practice Comments Weight Change >10lbs [...] voices No 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 female here to??follow up on:?? 1) Hypothyroidism- she has planned to get labs today but the??labs are not able to??get things up and running.?? She still struggles to get her medication daily. She??has not been feeling good.?? She??is prescribed levothyroxine 75mcg daily.?? TSH Latest Result?? No qualifying data available.?? 2) Anxiety and depression-?She put in her notice to leave at the end of December but they cut out one week of pay.?? 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 She has to deal with Karens.? She will be working with someone??she has known for 20 years.?? 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 She is on duloxetine 60mg daily.?She is taking it irregularly.?? She has been going to the counselor routinely for the last 3 months.?? She has worked on breathing exercises.?? Her mother has been tested for??some kind of cancer and they had to do a PET scan and liver biopsy on hermother-they are very stressed.?? 3) ADHD-She had a positive test months ago.?? She feels her coping mechanisms are failing her. She has had a lot of change in the last year.?? Job stress.?? Parenting her step son-he has been dealing??with some behavioral issues.?? 4) Body pain-she has constant back pain.?? she has some hip pain and hand pain.?? She feels really achy.?? taking her her cymbalta irregularly.?? She tried gabapentin in the past. She does not believe she tried lyrica.?? 5) GERD-she has been on her PPI but??when she misses a dose she has break through symptoms.?? Review of Systems ?CONSTITUTIONAL ? Fever?No.? Chills?No.?? Fatigue?Yes.?? Decreased appetite?No.?? Have you lost or gained weight in the past year?Yes.?? Recent Illness?No.? EYES ? Change in Vision?No.?? Glasses or contacts?No.? ENT ? Problems hearing?No.? CARDIOVASCULAR ? Chest Pain?No.?Swelling in Legs?No.?? Skipping heart beats?No.?? Palpitations?No ? RESPIRATORY ? Cough?No.?? Shortness of Breath while resting?No.?? Wheezing?No.? MUSCULOSKELETAL ? Neck pain?No.? Joint Pain?Yes.?? Back pain?Yes.?? Red or swollen joints?No.? HEMATOLOGY/ONCOLOGY ?Bruising?No.?? Bleeding?No.? NEUROLOGY ? Dizziness?No.?? Headaches?No.?? Imbalance?No.? ENDOCRINE ? Problems with heat?No.?? Problems with cold?No.?? Swelling in Neck?No.?? Frequent urination?No.?? Excessive thirst?No.?? Changes in hair?No.? PSYCHIATRIC ? Depression?Yes.?? Feel like hurting someone?No.?? Feel like hurting yourself?No.?? Problems with memory?No.?? Anxiety?Yes.?? Problems concentrating?Yes.?? Problems sleeping?Yes.? Vitals and Measurements Vital Signs Height: 176 cm Height Inches Conversion: 69.3 Weight: 143.18 kg Weight in Pounds (kg conversion): 315 Body Surface Area: 2.6457 m2 Body Mass Index: 46.22 kg/m2 Temperature Temporal Artery: 36.5 DegC Systolic Blood Pressure: 112 mm Hg Diastolic Blood Pressure: 78 mm Hg Peripheral Pulse Rate: 83 bpm Oxygen Saturation: 99 % Physical Exam GENERAL APPEARANCE: well developed [...] oriented x 3. SKIN: unremarkable. EXTREMITIES: no edema.? PSYCH: appropriate mood and affect.?? Good insight and judgement.? Assessment/Plan 1.??Hypothyroidism Stable.?? Chronic.?? Symptomatic. Due for labs at this time.?? Will review data and treat as appropriate.? Please continue to take your medication first [...] the eyes, hair loss, or nail changes.?? 2.??Anxiety and depression Chronic. Stable.?? Continue on cymbalta??daily.?? Try meditation, yoga, writing in a journal or making a video journal, and stress management.?? Daily exercise may help augment mood treatment.?? Recommend seeing a counselor as well to help manage mood. Call 911 or seek emergency medical care for thoughts of SI/HI.? 3.??Adult ADHD Diagnosed??last fall??but did not have significant dysfunction. Worsening focus at this time.?? Ready to try a medication.?? Try adderall IR 10mg BID.?? Call if??having anxiety, weight changes, insomnia,??poor appetite, or chest pain or palpitations. Scripts provided for the next one month. Try listening to the podcast: Translating ADD. ?? 4.??Fibromyalgia Chronic.?? Unstable.?? Poorly controlled. Symptomatic.?? Try taking cymbalta??more regularly.?? Consider trial of lyrica.? Recommend daily low impact exercises like walking, swimming, yoga, and eva chi.?? Recommend continued daily movement but avoid high impact activities. Consider a diet high in anti-inflammatories (tumeric, whole foods, unprocessed, more fruits and veggies).?? 5.??GERD (gastroesophageal reflux disease) Chronic.?? Acute.?? Stable.?? Unstable. Well controlled.?? Fair control.?? Poorly controlled. Symptomatic.?? Asymptomatic.? Keep a diary of symptoms.?? Avoid triggers: laying down after eat, eating a large or heavy meal, wearing tight clothing around the upper abdomen, eating spicy or highly acidic foods, alcohol, caffeine, mint, and chocolate, and NSAIDs.?? For daily symptoms, may need to try an H2 maxx or PPI daily.?? Additionally, may benefit from seeing a family practitioner and getting an EGD if symptoms are not able to be well controlled with lifestyle changes and medications.?? For intermittent (1-2x month)symptoms, may try rolaids or tums for symptom relief.?? Call 911 or seek emergency medical care for gross blood in the stool, black stools (melena), or hematemesis (throwing up what looks like blood/coffee grounds).? Orders: amphetamine-dextroamphetamine(Adderall 10 mg oral tablet), 10 mg= 1 tablet(s), Oral, bid DULoxetine(DULoxetine 60 mg oral capsule), 60 mg= 1 capsule(s), Oral, daily, 5 refills levothyroxine(levothyroxine 75 mcg (0.075 mg) oral tablet), 1 tablet(s), Oral, daily before breakfast, 5 refills omeprazole(omeprazole 20 mg oral delayed release tablet), 20 mg= 1 tablet(s), Oral, daily, 3 refills Follow Up Follow Up with??Karen Díaz DO When??Within 1 month [facility]: [facility] [address] [place] [address]- Problem List/Past Medical History Ongoing Adult ADHD Allergic rhinitis Bilateral hand pain Chronic back [...] ???Colonoscopy (2019)???Excision of uterine polyp (2016) Medications New amphetamine-dextroamphetamine (Adderall 10 mg oral tablet)1 tablet(s) By mouth 2 times a day. Refills: 0. Changed omeprazole (omeprazole 20 mg oral delayed release tablet)1 tablet(s) By mouth daily. Refills: 3. Unchanged albuterol (albuterol 90 mcg/inh inhaler)2 puff(s) [...] By mouth daily before breakfast. Refills: 5. 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 Workplace hazards: Sitting toomuch., 10/02/2020 Home/Environment Lives [...] Event Name?? Event Result?? Date/Time?? Oxygen Saturation 99 % 02/10/24 10:50:00 ? Voice to Text Technology Disclaimer This note may contain text inserted via Dragon or other voice to text assistive technology and transcription specialist, variances may occur. Patient Care team information Care Team Personnel Name: Karen Díaz DO Position: Physician - Internal Medicine Member Role: Primary Care Physician Address: Address: [address] [place] [phone] Name: Anel Man Position: AMB MATTRESS PACKER/PA Member Role: Nurse Practitioner Address: Address: [address] [place], [place] [id number] Name: Karen Díaz DO Position: Physician - Internal Medicine Med Service: Engineering Librarian Plating Inspector Role: Attending Physician Address: Address: [id number] [place] [address] [address] [place], [place] [phone] Care Team Related Persons Name: LUCAS MARTIN Address: home [address] [place], [place] [id number]
--- OUTSIDE RECORDS SUMMARY | 2024-07-05 14:21 | XMS_ITS | Continuity of Care Document ---
Author Organization [facility] Address [address] [place] [phone] Care Team Providers Care Longwall Headgate Operator Name Role Phone Karen Díaz Primary Care Physician Encounter [facility] Financial Number [id number] Date(s): 04/30/24 - 04/30/[address] [phone] Discharge Disposition: Home or Self Care Attending Physician: Karen Díaz DO Admitting Physician: Karen Díaz DO Referring Physician: Karen Díaz DO Allergies, Adverse Reactions, Alerts Substance Criticality Severity Reaction Reaction Severity Status gabapentin Physical aggres ada: aggressive or combative to self and others (for example, hits self, throws objects, punches, dangerous maneuvers with wheelchair or other objects) Combative reaction Active Assessment and Plan Future Appointments Appointment Date:05/11/2024 08:45:00 AM Scheduled Provider:Vladimir Duke MD Location:[facility] Sleep Med Appointment Type:[facility] EP CPAP Established Patient Appointment Date:07/30/2024 01:30:00 PM Scheduled Provider:Anabelle Kaufman WASTEWATER SUPERINTENDENT Location:[facility] Med Appointment Type:CC EP Established Patient Immunizations Given and Recorded Vaccine Date Status Refusal Reason rabies vaccine, human diploid cell 03/30/24 Record ed rabies vaccine, human diploid cell 03/23/24 Record ed SARS-CoV-2 (COVID-19) mRNA BNT-162b2 vax 04/24/21 Recorded SARS-CoV-2 (COVID-19) mRNA BNT-162b2 vax 04/03/21 Recorded Medications albuterol 90 mcg/inh inhaler 2 puff(s), Inhalation, [id number], PRN, 1 each, Inhaler, 11, 11, shortness of breath, Route to Pharmacy Electronically, [id number], 170, cm, 01/02/2021 0936, Height, 137.8, kg,01/02/2021 0936, Weight Start Date: 01/02/21 Status: Ordered DULoxetine 60 mg oral capsule 60 mg, 1 capsule(s), Oral, daily, 30 capsule(s), Capsule(s), 5, 5, Route to Pharmacy Electronically, [place] [address] [facility], [id number], 176, cm, 04/24/24 13:28:00 CDT, Height, 139.5, kg, 04/24/24 13:28:00 CDT, Weight Start Date: 04/24/24 Status: Ordered ibuprofen 200 mg oral tablet 2-4 tablets, Oral, [id number], PRN, 120 tablet(s), Tablet(s), 0, for pain Start Date: 03/14/23 Status: Ordered levothyroxine 75 mcg (0.075 mg) oral tablet 1 tablet(s), Oral, daily before breakfast, 30 tablet(s), 5, 5, Route to Pharmacy Electronically, [place] [address] [facility], [id number], 176, cm, 02/10/24 10:50:00 CDT, Height, 143.18, kg, 02/10/24 10:50:00 CDT, Weight Start Date: 02/10/24 Status: Ordered Gauri 0.25mg-35mcg oral tablet 1 tablet(s), Oral, daily, 84 tablet(s), 3, 3, Route to Pharmacy Electronically, [place] [address] [facility], [id number], 176, cm, 12/09/23 10:52:00 CDT, Height, 143.8, kg, 12/09/23 10:52:00 CDT, Weight Start Date: 12/09/23 Status: Ordered omeprazole 20 mg oral delayed release tablet 20 mg, 1 tablet(s), Oral, daily, 90 tablet(s), Tab EC, 3, 3, Route to Pharmacy Electronically, [facility] [address] [facility], [id number], 176, cm, 02/10/24 10:50:00 CDT, Height, 143.18, kg, 02/10/24 10:50:00 CDT, Weight Start Date: 02/10/24 Status: Ordered Vitamin D3 5000 intl units oral capsule See Instructions, 30 capsule(s), 0, TAKE 1 CAPSULE BY MOUTH DAILY, Route to Pharmacy Electronically, [facility] [address], [id number], Instructions Replace Required Details, 176,cm, 02/10/24 10:50:00 CDT, Height, 143.18, kg, 02/10/24 10:50:00 CDT, Weight Start Date: 04/20/24 Status: Ordered Wellbutrin XL 150 mg/24 hours oral tablet, extended release 150 mg, 1 tablet(s), Oral, daily, 100 tablet(s), Tab SR 24 HR, 3, 3, Route to Pharmacy Electronically, [facility] [address] [facility], [id number], 176, cm, 04/24/24 13:28:00 CDT, Height, 139.5, [...] Completed Excision of uterine polyp [address] [place] [address] Social History Social History Type Response Alcohol Former alcohol user, Household alcohol concerns: No. 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 Workplace hazards: Sitting too much. Home/Environment Lives [...] on: 06/10/23 Sex Note * Event Display: Authorization to Treat * Event Display: Authorization to Treat * Event Display: Patient Provided Clipboard Authored Date: [id number] Ambulatory Comprehensive Intake Ambulatory Comprehensive IntakeOriginating Source: PATIENTOriginating Author: KAYLA Cerna Submission Date: October 03, 2020 9:45:07 AM -06:00 KAYLA METZGER : 1980 Sex: Female MRN(s): [id number] Ambulatory Comprehensive Intake Question Response Advance Directive Advance Directive Date Location of Advance Directive Type of Advance Directive Patient has Court Appointed Guardian No Location of Court Appointed Guardian Documentation Legal Guardian Medical Power of Charhouse Worker Name Patient Requests Counseling Regarding Advance Directives History of Falling in Last 3 Months, Including Since Admission No Impaired Judgment/Lack of Safety Awareness No Agitation No Impaired Gait, Shuffle, Wide Base, Unsteady Walk No Ever Experience Dizziness or Vertigo No Ever Wet or Soil Yourself on Way to Bathroom No Medical Devices None Wall Covering Installer Card Other Wall Covering Installer Details Radiology Testing Barriers/Precautions None Menstrual Status Last Menstrual Period 2020-09-12 Previous LMP Date Last Menstrual Period Description Irregular periods, Heavy flow Menarche Onset Menarche Frequency Menarche Length Menstrual Comments PAP result HPV Coping Stressors Emotional Support Available Do You Receive Comfort From Spiritual Practices No Uatsdin Preference Spiritual Practice Comments Weight Change >10lbs [...] voices No Marital or relationship problems No contract manager awakenings Yes Chief Complaint Need new [...] Member Role: Primary Care Physician Address: Address: [address] [place] [phone] Name: Karen Díaz DO Position: Physician - Internal Medicine Med Service: Sign Maker Longwall Headgate Operator Role: Referring Physician Address: Address: [address] [place] [phone] [place] Care Team Related Persons Name: LUCAS MARTIN Address: home [address] [place] [address], [phone]
--- OUTSIDE RECORDS SUMMARY | 2024-07-05 14:22 | XMS_ITS ---
Author Organization [facility] Address [address] [place] [address] [address] [place] [address] Care Team Providers Care Real Estate Listing Consultant Name Role Phone Karen Díaz DO Primary Care Provider UnaBenoit Elias Unavailable [phone] REASON FOR VISIT Cancel 11/07 apointment Encounters Encounter Location Date Provider Diagnosis [facility], [address] [place] [address] 11/01/2023 Benoit Duke Plan Of Treatment No Information Progress Notes * Marie JULIAN BDOB:[birth year] (43 yo F)Acc No.[id number]:11/01/2023 Patient:?Marie Julian :1980???Age:43 Y???Sex:Female Address:[facility] [place] [address] * true * Date:? Generated for Printi ng/Faxing/eTransmitting on:?07/05/2024 02:22 PM TELEVISION INSPECTOR
--- OUTSIDE RECORDS SUMMARY | 2024-07-05 14:22 | XMS_ITS | Continuity of Care Document ---
Author Organization [facility] Address [address] [place] [address] [id number] Care Team Providers Care Tear Down Man Name Role Phone Karen Díaz Primary Care Physician Encounter [facility] Financial Number [id number] Date(s): 04/23/24 - 04/23/[address] [phone] Discharge Disposition: Home or Self Care Attending Physician: Karen Díaz DO Referring Physician: Karen Díaz DO Allergies, Adverse Reactions, Alerts Substance Criticality Severity Reaction Reaction Severity Status gabapentin Physical aggres ada: aggressive or combative to self and others (for example, hits self, throws objects, punches, dangerous maneuvers with wheelchair or other objects) Combative reaction Active Assessment and Plan Future Appointments Appointment Date:04/24/2024 01:30:00 PM Scheduled Provider:Karen Díaz DO Location:[facility] Med Appointment Type:CC EP Established Patient Appointment Date:05/11/2024 08:45:00 AM Scheduled Provider:Vladimir Duke MD Location:[facility] Sleep Med Appointment Type:[facility] EP CPAP Established Patient Immunizations Given and Recorded Vaccine Date Status Refusal Reason SARS-CoV-2 (COVID-19) mRNA BNT-162b2 vax 04/24/21 Recorded SARS-CoV-2 (COVID-19) mRNA BNT-162b2 vax 04/03/21 Recorded Medications Adderall 10 mg oral tablet 10 mg, 1 tablet(s), Oral, bid, 60 tablet(s), Tablet(s), 0, 0, Route to Pharmacy Electronically, [id number] [facility], [id number], 02/10/24, 176, cm, 02/10/24 10:50:00 CDT, Height, 143.18, kg, 02/10/24 10:50:00 CDT, Weight Start Date: 02/10/24 Status: Ordered albuterol 90 mcg/inh inhaler 2 puff(s), Inhalation, [id number], PRN, 1 each, Inhaler, 11, 11, shortness of breath, Route to Pharmacy Electronically, [facility][id number][id number], 170, cm, 01/02/2021 0936, Height, 137.8, kg,01/02/2021 0936, Weight Start Date: 01/02/21 Status: Ordered DULoxetine 60 mg oral capsule 60 mg, 1 capsule(s), Oral, daily, 30 capsule(s), Capsule(s), 5, 5, Route to Pharmacy Electronically, [facility] [id number] [facility], [id number], 176, cm, 02/10/24 10:50:00 CDT, Height, 143.18, kg, 02/10/24 10:50:00 CDT, Weight Start Date: 02/10/24 Status: Ordered ibuprofen 200 mg oral tablet 2-4 tablets, Oral, [id number], PRN, 120 tablet(s), Tablet(s), 0, for pain Start Date: 03/14/23 Status: Ordered levothyroxine 75 mcg (0.075 mg) oral tablet 1 tablet(s), Oral, daily before breakfast, 30 tablet(s), 5, 5, Route to Pharmacy Electronically, [facility] [address] [facility], [id number], 176, cm, 02/10/24 10:50:00 CDT, Height, 143.18, kg, 02/10/24 10:50:00 CDT, Weight Start Date: 02/10/24 Status: Ordered Gauri 0.25mg-35mcg oral tablet 1 tablet(s), Oral, daily, 84 tablet(s), 3, 3, Route to Pharmacy Electronically, [facility] [address] [facility], [id number], 176, cm, 12/09/23 10:52:00 CDT, Height, 143.8, kg, 12/09/23 10:52:00 CDT, Weight Start Date: 12/09/23 Status: Ordered omeprazole 20 mg oral delayed release tablet 20 mg, 1 tablet(s), Oral, daily, 90 tablet(s), Tab EC, 3, 3, Route to Pharmacy Electronically, [facility] [address] [facility], [id number], 176, cm, 02/10/24 10:50:00 CDT, Height, 143.18, kg, 02/10/24 10:50:00 CDT, Weight Start Date: 02/10/24 Status: Ordered Vitamin D3 5000 intl units oral capsule See Instructions, 30 capsule(s), 0, TAKE 1 CAPSULE BY MOUTH DAILY, Route to Pharmacy Electronically, [facility] STORE [address], [id number], Instructions Replace Required Details, 176,cm, 02/10/24 10:50:00 CDT, Height, 143.18, kg, 02/10/24 10:50:00 CDT, Weight Start Date: 04/20/24 Status: Ordered Problem List Condition Confirmation Course [...] Completed Excision of uterine polyp [address] [place] [address] Results Laboratory List Name Date CBC with Differential 04/23/24 Comprehensive Metabolic Profile 04/23/24 Differential, Automated 04/23/24 Free T3 04/23/24 Free T4 04/23/24 Lipid Panel 04/23/24 TSH (Highly Sensitive) 04/23/24 Urinalysis w/ Reflex to Culture 04/23/24 Vitamin D, 25-Hydroxy, Total 04/23/24 Most recent to oldest [Reference Range]: 1 Albumin [3.5-5.0 g/dL] 3.9 g/dL (04/23/24 10:06 AM) Alk Phos [38-126 U/L] 82 U/L (04/23/24 10:06 AM) BUN [7-17 mg/dL] 9 mg/dL (04/23/24 10:06 AM) Calcium [8.4-10.2 mg/dL] 8.8 mg/dL (04/23/24 10:06 AM) Chloride [98-107 mmol/L] 104 mmol/L (04/23/24 10:06 AM) Cholesterol [<=199 mg/dL] 186 mg/dL (04/23/24 10:06 AM) CO2 [22-30 mmol/L] 21 mmol/L *L* (04/23/24 10:06 AM) Glucose [74-106 mg/dL] 92 mg/dL (04/23/24 10:06 AM) Direct HDL [>=41 mg/dL] 40 mg/dL *L* (04/23/24 10:06 AM) Potassium [3.4-5.1 mmol/L] 4.4 mmol/L (04/23/24 10:06 AM) Sodium [137-145 mmol/L] 136 mmol/L *L* (04/23/24 10:06 AM) Protein, Total [6.5-8.6 g/dL] 6.9 g/dL (04/23/24 10:06 AM) Triglyceride [<=149 mg/dL] 122 mg/dL (04/23/24 10:06 AM) TSH, Highly Sensitive [0.47-4.68 uIU/mL] 2.92 uIU/mL (04/23/24 10:06 AM) Baso # [0.0-0.2 K/uL] 0.1 K/uL (04/23/24 10:06 AM) Eos # [0.0-0.7 K/uL] 0.1 K/uL (04/23/24 10:06 AM) Hematocrit [35.5-44.0 %] 39.2 % (04/23/24 10:06 AM) Lymph % 30 % (04/23/24 10:06 AM) Lymph # [0.7-4.5 K/uL] 2.3 K/uL (04/23/24 10:06 AM) MCHC [31.5-35.5 g/dL] 31.9 g/dL (04/23/24 10: AM) MCH [27.2-32.6 pg] 29.8 pg (04/23/24 10:06 AM) MCV [82.0-99.0 fL] 93.3 fL (04/23/24 10:06 AM) Spencer # [0.1-1.3 K/uL] 0.5 K/uL (04/23/24 10:06 AM) MPV [9.3-12.4 fL] 10.1 fL (04/23/24 10:06 AM) Neutro # [1.9-7.0 K/uL] 4.5 K/uL (04/23/24 10:06 AM) Platelet [140-350 K/uL] 322 K/uL (04/23/24 10:06 AM) RBC [3.90-4.90 M/uL] 4.20 M/uL (04/23/24 10:06 AM) RDW [11.5-14.5 %] 13.3 % (04/23/24 10:06 AM) WBC [4.3-10.0 K/uL] 7.5 K/uL (04/23/24 10:06 AM) Vitamin D, 25 Hydroxy, Total [30-100 ng/ mL] 54 ng/mL 1 (04/23/24 10:06 AM) Neutro % 60 % (04/23/24 10:06 AM) Spencer % 7 % (04/23/24 10:06 AM) Eos % 2 % (04/23/24 10:06 AM) Baso % 1 % (04/23/24 10:06 AM) Nucleated RBCs [0-0 %] 0 % (04/23/24 10:06 AM) UA Blood [Negative] Negative (04/23/24 10: AM) AST [14-42 U/L] 27 U/L (04/23/24 10:06 AM) Bilirubin, Total [0.2-1.3 mg/dL] 0.5 mg/ dL (04/23/24 10:06 AM) LDL (Calc) [<=99 mg/dL] 122 mg/dL 2 *H* (04/23/24 10: AM) Free T4 [0.8-2.2 ng/dL] 1.0 ng/dL (04/23/24 10: AM) Creatinine [0.50-1.00 mg/dL] 0.76 mg/dL (04/23/24 10:06 AM) Patient Fasting? Yes (04/23/24 10: AM) Hemoglobin [11.8-14.8 g/dL] 12.5 g/dL (04/23/24 10:06 AM) eGFR(CKD-EPI) [>=90 mL/min/1.73m2] 100 m L/min/1.73m2 3 (04/23/24 10: AM) eCrCl(C-Gault) 1.5 mL/min/kg 4 (04/23/24 10:06 AM) Immature Gran % [0.0-0.5 %] 0.3 % (04/23/24 10:06 AM) UA Bilirubin [Negative] Negative (04/23/24 10:06 AM) UA Clarity [Clear] Hazy *(A)* (04/23/24 10:06 AM) UA Color [Straw] Straw (04/23/24 10:06 AM) Differential Type Automated (04/23/24: AM) UA Glucose (Qual) [Negative] Negative (04/23/24 10: AM) UA Ketones [Negative] Negative (04/23/24 10:06 AM) UA Leukocyte Esterase [Negative] Negativ e (04/23/24 10:06 AM) UA Nitrite [Negative] Negative (04/23/24 10:06 AM) UA Specific [place] [1.005-1.030] 1.016 (04/23/24 10:06 AM) Free T3 [2.8-5.3 pg/mL] 3.3 pg/mL (04/23/24 10:06 AM) UA pH [5.0-8.0] 6.0 (04/23/24 10:06 AM) UA Protein (Qual) [Negative] Negative (04/23/24 10:06 AM) UA Urobilinogen [Negative] Negative (04/23/24 10:06 AM) Anion Gap [7-16 mmol/L] 11 mmol/L (04/23/24 10:06 AM) ALT [<=35 U/L] 23 U/L (04/23/24 10:06 AM) 1Interpretive Data: The Endocrine Society has adopted the following interpretive guidelines for Total 25-OH Vitamin D: Deficient: 0 - 20 ng/mL Insufficient: 21 - 29 ng/mL Sufficient: 30 - 100 ng/mL Other studies have indicated the following: Potentially Toxic: >100 ng/mL Definitely Toxic: >150 ng/mL 2Interpretive Data: The LDL result was calculated using the Friedewald formula. It overestimates LDLcholesterol for patients with type III hyperlipoproteinemia, and underestimates LDL cholesterol when a patient has not fasted for at least 9 hours or when triglycerides are high (particularly >400mg/dL). In these situations, direct measurement of LDL cholesterol is recommended. 3Interpretive Data: eGFR (CKD-EPI) is an estimate of the glomerular filtration rate using the race-free 2020 Chronic Kidney Disease Epidemiology Collaboration equation. The calculation utilizes the patient???s recorded sex and age and the measured serum creatinine. Brb-IQC-rakwfxz factors that may affect serum creatinine include altered generation (muscle wasting, amputees, body builders, vegan diet), drugs affecting tubular secretion (cimetidine and many others), and extra-renal elimination (gastrointestinal and ???third-space?? losses). Interpretive guidelines are based on steady-state renal function. 4Interpretive Data: When multiplied by the patient's body weight (in kg), eCrCl(C-Gault) is an estimate of the creatinine clearance using the Cockroft- Gault formula. It is widely used for adjusting drug dosages. Since the result is shown per kg, there is no established reference range. Social History Social History Type Response Alcohol Former alcohol user, Household alcohol concerns: No. 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 Home/Environment Lives [...] Event Display: Patient Provided Clipboard Authored Date: [id number] Ambulatory Comprehensive Intake Ambulatory Comprehensive IntakeOriginating Source: PATIENTOriginating Author: KAYLA Cerna Submission Date: October 03, 2020 9:45:07 AM -06:00 KAYLA METZGER : 1980 Sex: Female MRN(s): [id number] Ambulatory Comprehensive Intake Question Response Advance Directive Advance Directive Date Location of Advance Directive Type of Advance Directive Patient has Court Appointed Guardian No Location of Court Appointed Guardian Documentation Legal Guardian Medical Power of Tanyard Worker Name Patient Requests Counseling Regarding Advance Directives History of Falling in Last 3 Months, Including Since Admission No Impaired Judgment/Lack of Safety Awareness No Agitation No Impaired Gait, Shuffle, Wide Base, Unsteady Walk No Ever Experience Dizziness or Vertigo No Ever Wet or Soil Yourself on Way to Bathroom No Medical Devices None Escrow Assistant Card Other Escrow Assistant Details Radiology Testing Barriers/Precautions None Menstrual Status Last Menstrual Period 2020-09-12 Previous LMP Date Last Menstrual Period Description Irregular periods, Heavy flow Menarche Onset Menarche Frequency Menarche Length Menstrual Comments PAP result HPV Coping Stressors Emotional Support Available Do You Receive Comfort From Spiritual Practices No Oriental Orthodox Preference Spiritual Practice Comments Weight Change >10lbs [...] voices No Marital or relationship problems No machine group leader awakenings Yes Chief Complaint Need new primary [...] Role: Primary Care Physician Address: Address: [address] [place] [address] Leann Davison MARY [phone] [place] Care Team Related Persons Name: VERONICA LUCAS Address: home [address] [place] [address], [phone]
--- OUTSIDE RECORDS SUMMARY | 2024-07-05 14:22 | XMS_ITS ---
Author Organization [facility] Address [address] [place] [address] [address] [place] [address] Care Team Providers Care Director Of Bands Name Role Phone Bre Karen TEJEDA Primary Care Provider Benoit Novak Unavailable [phone] Allergies Allergen (clinical drug ingredient) Drug/Non Drug Allergy documented on EMR Reaction Allergy Type Onset Date Status gabapentin Gabapentin Unknown Drug Allergy Activ e REASON FOR VISIT Follow Up Medications Medication SIG (Take, Route, Frequency, Duration) Notes Start Date End Date Status Omeprazole Active DULoxetine HCl Activ e Levothyroxine Sodium Active Gauri Active OTC/Vitamins Ibuprofen, Vit D Active Social History Tobacco Use: Social History Observation Description Date Details (start date - stop date) Former Smoker NA - NA Tobacco Use/Smoking Question Answer Notes Are you a former smoker How long has it been since you last smoked? 5-10 years Encounters Encounter Location Date Provider Diagnosis [facility] [place] [address] 11/08/2023 Benoit Duke Plan Of Treatment No Information Progress Notes * Marie JULIAN BDOB:[birth year] (44 yo F)Acc No.[id number]:11/08/2023 Patient:?Marie JULIAN Provider:?Benoit Duke D.O. :1980???Age:43 Y???Sex:Female D ate:11/08/2023 Address:[facility], [facility] Pcp:Karen Díaz, DO Subjective: * Chief Complaints: * ???1. Follow Up. * ROS:?GI Bleeding:?Melena?No.?Hematochezia?No.?Hematemesis?No.?Anemia?No.?GI-Stomach:?Nausea/Emesis?No.?Pain?No.?PUD?No.?Anorexia?No.?GI-Esophageal:?Dysphagia?No.?Odynophagia?No.?Chest Pain?No.?LEV Sx?Yes.?GI-Liver/GB:?Jaundice?No.?Hepatitis?No.?Gallstones?No.?Pancreatitis?No.?GI-Colon:?Colitis/IBS?No.?Diarrhea?No.?Constipation?No.?Hemorrhoids?Yes.?General/Constitutional:?Fever?No.?Chills?No.?Weight Loss?No.?Skin:?Rash?No.?Pruritus?No.?Icterus?No.?Photosensitivity?No.?ENT:?Diplopia?No.?Visual Loss?No.?Tinnitus?No.?Vertigo?No.?Deafness?No.?Poor Dentition?No.?Hematology:?Easy Bruising?No.?Hemophilia?No.?Hematologic Malignancy?No.?Lymphadenopathy?No.?History of Petechia?No.?Anemia?No.?Cardiovascular:?Palpitations?No.?Syncope?No.?PND?No.?MASSEY?No.?Orthopnea?No.?Chest Pain?No.?Respiratory:?Cough?No.?Sputum Production?No.?Hemoptysis?No.?Wheezing?Yes, Asthma.?TB?No.?SOB?No.?Neurologic:?Stroke?No.?Seizure Disorder?No.?Tremor?No.?Paralysis?No.?Syncope?No.?Genitourinary:?Dysuria?No.?Polyuria?No.?Incontinence?No.?Renal Failure?No.?Hematuria?No.?Musculoskeletal:?Joint Pain?No.?Swelling?No.?Stiffness?No.?Muscle Weakness?No.?Myalgia?No.?Endocrine:?Thyroid Disease?Yes.?Diabetes?No.?Polyphagia?No.?Polydipsia?No.?Psychiatric:?Delusions?No.?Hallucinations?No.?Suicidal Ideations?No.?Allergy/Immunology:?Hives?No.?Chronic Sinusitis?No.?History of Anaphylaxis?No.? * Medical History:?Colon Polyp s, Hepatic Steatosis, GERD, Hemorrhoids, Diverticulosis, Hypothyroidism, Hyperlipidemia, Asthma, Sleep Apnea, Migraines, PCOS, Fibromyalgia. * Surgical History:?Endoscopy 05/2023, Colonoscopy (Dr Tran) 04/2019, Excision of Uterine Polyp 2015. * Hospitalization/Major Diagno stic Procedure:?Denies Past Hospitalization. * Family History:?Siblings: Si ster, diagnosed with Crohns disease with complication, unspecified gastrointestinal tract location.?Maternal Grand Mother: diagnosed with Malignant neoplasm of colon, unspecified part of colon, Colon polyp.? * Social History:?Tobacco Use:?Tobacco Use/Smoking?Are you a?former smoker ?How long has it been since you last smoked??5-10 years ?Pack-Years: Quit 2018. ???Drugs/Alcohol:?Do you Drink Alcohol?: No, quit 07/2018. ?Do you Smoke Marijuana?: No. * Medications:?Taking Omeprazo le , Taking DULoxetine HCl , Taking Levothyroxine Sodium , Taking Gauri , Taking OTC/Vitamins , Notes to Pharmacist: Ibuprofen, Vit D, Medication List reviewed and reconciled with the patient * Allergies:?Gabapentin. Objective: * Vitals:? * Examination: ???Physical Examination: ?GENERAL:?Appears stated age, in no apparent distress.?SKIN:?No rash, ecchymoses, petechial, or telangiectasia.?HEENT:? Normocephalic, EOMI, Nasal & buccal mucosa clear.?NECK:? Supple without masses., Normal Range of Motion, No jugular venous distention.?LYMPH NODES:? No cervical, supraclavicular, or axillary lymphadenopathy.?CARDIAC:? RRR without murmur, gallop, or rub.?PULMONARY:? Clear to auscultation and percussion bilaterally.?ABDOMEN:?BS positive, soft, non-tender, No masses, organomegaly, rebound, or ascites.?EXTREMITIES:?No cyanosis, clubbing, or edema.?NEUROLOGIC:?Alert and oriented x3, No asterixis, Nonfocal examination.?CQM Exceptions: ?Influenza Vaccine not administered:?Pneumococcal Vaccine not administered:? Assessment: Plan: * Treatment: * Images: * Electronic signature of Samuel Duke DO on 07/05/2024 at 02:21 PM CABLE INSTALLER Sign off status: Pending * Provider:?Benoit Duke D.O. Date:? 024 Generated for Lucas washing[place]/Nidia/Frankransmitting on:?07/05/2024 02:21 PM CABLE INSTALLER
--- OUTSIDE RECORDS SUMMARY | 2024-07-05 14:22 | XMS_ITS | Continuity of Care Document ---
Author Organization [facility] Address [address] [place] [phone] Care Team Providers Care Hand Cementer Name Role Phone Karen Díaz Primary Care Physician Encounter [facility] Financial Number [id number] Date(s): 10/21/22 - 10/21/[address] [phone] Discharge Disposition: Home or Self Care Attending Physician: Karen Díaz DO Referring Physician: Karen Díaz DO Allergies, Adverse Reactions, Alerts Substance Reaction Severity Status gabapentin Physical aggression: aggressive or combative to self and others (for example, hits self, throws objects, punches, dangerous maneuvers with wheelchair or other objects) Combative reaction Active Assessment and Plan Future Appointments Appointment Date:11/26/2022 10:30:00 AM Scheduled Provider:Karen Díaz DO Location:[facility] Appointment Type:CC EP Established Patient Immunizations Given and Recorded Vaccine Date Status Refusal Reason SARS-CoV-2 (COVID-19) mRNA BNT-162b2 vax 04/24/21 Recorded SARS-CoV-2 (COVID-19) mRNA BNT-162b2 vax 04/03/21 Recorded Medications albuterol 90 mcg/inh inhaler 2 puff(s), Inhalation, [id number], PRN, 1 each, Inhaler, 11, 11, shortness of breath, Route to Pharmacy Electronically, [facility]/pharmacy #[id number], NCPDP_[id number], 170, cm, 01/02/2021 0936, Height, 137.8, kg,01/02/2021 0936, Weight Start Date: 01/02/21 Status: Ordered DULoxetine 30 mg oral delayed release capsule 1 capsule(s), Oral, daily, 30 capsule(s), 11, Route to Pharmacy Electronically, [facility], NCPDP_[id number], 176, cm, 05/10/2022 1557, Height, 139.5, kg, 05/10/2022 1557, Weight Start Date: 06/09/22 Status: Ordered levothyroxine 75 mcg (0.075 mg) oral tablet 1 tablet(s), Oral, daily before breakfast, 30 tablet(s), 5, Route to Pharmacy Electronically, [facility], NCPDP_[id number], 176, cm, 09/07/2022 1456, Height, 137.2, kg, 09/07/2022 1456, Weight Start Date: 09/21/22 Status: Ordered Gauri 0.25mg-35mcg oral tablet 1 tablet(s), Oral, daily, 84 tablet(s), 3, 3, Route to Pharmacy Electronically, [facility] #[id number], NCPDP_[id number], 176, cm, 09/07/2022 1456, Height, 137.2, kg, 09/07/2022 1456, Weight Start Date: 09/10/22 Status: Ordered omeprazole 20 mg oral delayed release tablet 20 mg, 1 tablet(s), Oral, daily, 0 Start Date: 02/17/22 Status: Ordered Vitamin D3 5000 intl units oral capsule 5,000 unit(s), 1 capsule(s), Oral, daily, 90 capsule(s), Capsule(s), 3, 3, Route to Pharmacy Electronically, [facility] #[id number], NCPDP_[id number], 175, cm, 02/17/2022 1439, Height, 143, kg, [...] pain Confirmed Active Hepatic steatosis Confirmed Active Hypovitaminosis D Confirmed Active Procedures Procedure Date Related Diagnosis Body Site Status Colonoscopy 2019 Completed Excision of uterine polyp [address] [place] [address] Results Laboratory List Name Date C-Reactive Protein (CRP) 10/21/22 CBC with Differential 10/21/22 Comprehensive Metabolic Profile 10/21/22 Differential, Automated 10/21/22 Free T3 10/21/22 Free T4 10/21/22 Hemoglobin A1c 10/21/22 Sedimentation Rate 10/21/22 TSH (Highly Sensitive) 10/21/22 Vitamin D, 25-Hydroxy, Total 10/21/22 Most recent to oldest [Reference Range]: 1 Albumin [3.5-5.0 g/dL] 4.5 g/dL (10/21/22 4:03 PM) Alk Phos [38-126 U/L] 91 U/L (10/21/22 4:03 PM) BUN [7-17 mg/dL] 11 mg/dL (10/21/22 4:03 PM) Calcium [8.4-10.2 mg/dL] 9.4 mg/dL (10/21/22 4:03 PM) Chloride [98-107 mmol/L] 105 mmol/L (10/21/22 4:03 PM) CO2 [22-30 mmol/L] 24 mmol/L (10/21/22 4:03 PM) Glucose [74-106 mg/dL] 104 mg/dL (10/21/22 4:03 PM) Potassium [3.5-4.9 mmol/L] 4.1 mmol/L (10/21/22 4:03 PM) Sodium [137-145 mmol/L] 138 mmol/L (10/21/22 4:03 PM) Protein, Total [6.5-8.6 g/dL] 7.7 g/dL (10/21/22 4:03 PM) TSH, Highly Sensitive [0.47-4.68 uIU/mL] 3.00 uIU/mL (10/21/22 4:03 PM) CRP (Non-Cardiac) [0.0-0.9 mg/dL] 1.3 mg /dL *H* (10/21/22 4:03 PM) Baso # [0.0-0.2 K/uL] 0.1 K/uL (10/21/22 4:03 PM) Eos # [0.0-0.7 K/uL] 0.1 K/uL (10/21/22 4:03 PM) Hematocrit [35.5-44.0 %] 43.7 % (10/21/22 4:03 PM) Lymph % 26 % (10/21/22 4:03 PM) Lymph # [0.7-4.5 K/uL] 3.7 K/uL (10/21/22 4:03 PM) MCHC [31.5-35.5 g/dL] 33.0 g/dL (10/21/22 4:03 PM) MCH [27.2-32.6 pg] 29.6 pg (10/21/22 4:03 PM) MCV [82.0-99.0 fL] 89.9 fL (10/21/22 4:03 PM) Garza # [0.1-1.3 K/uL] 1.3 K/uL (10/21/22 4:03 PM) MPV [9.3-12.4 fL] 9.5 fL (10/21/22 4:03 PM) Neutro # [1.9-7.0 K/uL] 8.8 K/uL *H* (10/21/22 4:03 PM) Platelet [140-350 K/uL] 325 K/uL (10/21/22 4:03 PM) RBC [3.90-4.90 M/uL] 4.86 M/uL (10/21/22 4:03 PM) RDW [11.5-14.5 %] 13.6 % (10/21/22 4:03 PM) Sed Rate [0-20 mm/hr] 21 mm/hr *H* (10/21/22 4:03 PM) WBC [4.3-10.0 K/uL] 14.1 K/uL *H* (10/21/22 4:03 PM) Vitamin D, 25 Hydroxy, Total [30-100 ng/ mL] 65 ng/mL (10/21/22 4:03 PM) Neutro % 63 % (10/21/22 4:03 PM) Garza % 10 % (10/21/22 4:03 PM) Eos % 1 % (10/21/22 4:03 PM) Baso % 1 % (10/21/22 4:03 PM) Nucleated RBCs [0-0 %] 0 % (10/21/22 4:03 PM) AST [14-42 U/L] 31 U/L (10/21/22 4:03 PM) Bilirubin, Total [0.2-1.3 mg/dL] 0.4 mg/ dL (10/21/22 4:03 PM) Free T4 [0.8-2.2 ng/dL] 1.0 ng/dL (10/21/22 4:03 PM) Creatinine [0.5-1.0 mg/dL] 0.8 mg/dL (10/21/22 4:03 PM) Hemoglobin [11.8-14.8 g/dL] 14.4 g/dL (10/21/22 4:03 PM) eGFR(4vMDRD) [>=60 mL/min/1.73m2] >60 mL /min/1.73m2 (10/21/22 4:03 PM) eCrCl(C-Gault) 1.4 mL/min/kg (10/21/22 4:03 PM) Immature Gran % [0.0-0.5 %] 0.4 % (10/21/22 4:03 PM) Hemoglobin A1c [4.0-6.0 %] 6.1 % *H* (10/21/22 4:03 PM) Differential Type Automated (10/21/22 4:03 PM) Free T3 [2.8-5.3 pg/mL] 3.3 pg/mL (10/21/22 4:03 PM) Anion Gap [7-16 mmol/L] 9 mmol/L (10/21/22 4:03 PM) ALT [<=35 U/L] 29 U/L (10/21/22 4:03 PM) Social History Social History Type Response Alcohol Former alcohol user, Household alcohol concerns: No. Substance Abuse Never drug user, Gilda sehold substance abuse concerns: No. Smoking Status Former smoker;Never; Tobacco Cessation Counseling Requested N/A; Concerns about tobacco use in household: No; Smoker in household: No; Number of years: 2; entered on: 05/07/22 Sex Note * Event Display: Patient Provided Clipboard Authored Date: [id number] Ambulatory Comprehensive Intake Ambulatory Comprehensive IntakeOriginating Source: PATIENTOriginating Author: KAYLA Cerna Submission Date: October 03, 2020 9:45:07 AM -06:00 KAYLA METZGER : 1980 Sex: Female MRN(s): [id number] Ambulatory Comprehensive Intake Question Response Advance Directive Advance Directive Date Location of Advance Directive Type of Advance Directive Patient has Court Appointed Guardian No Location of Court Appointed Guardian Documentation Legal Guardian Medical Power of Chief Privacy Officer Name Patient Requests Counseling Regarding Advance Directives History of Falling in Last 3 Months, Including Since Admission No Impaired Judgment/Lack of Safety Awareness No Agitation No Impaired Gait, Shuffle, Wide Base, Unsteady Walk No Ever Experience Dizziness or Vertigo No Ever Wet or Soil Yourself on Way to Bathroom No Medical Devices None Upholstery Auto Trimmer Card Other Upholstery Auto Trimmer Details Radiology Testing Barriers/Precautions None Menstrual Status Last Menstrual Period 2020-09-12 Previous LMP Date Last Menstrual Period Description Irregular periods, Heavy flow Menarche Onset Menarche Frequency Menarche Length Menstrual Comments PAP result HPV Coping Stressors Emotional Support Available Do You Receive Comfort From Spiritual Practices No Jain Preference Spiritual Practice Comments Weight Change >10lbs [...] voices No Marital or relationship problems No campus rep awakenings Yes Chief Complaint Need new primary [...] Role: Primary Care Physician Address: Address: [address] [place] [phone] [place] Name: Anel Man C Position: 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[employer]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 SYSTEM[employer] 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/PA Member Role: Nurse Practitioner Address: Address: [address] [place] [phone] Name: Berenice Ivory Sports Teacher Position: Population Health Coordinator Member Role: Population Health Coordinator Name: Karen Díaz DO Position: Physician - Internal Medicine Med Service: Passenger Agent Hand Cementer Role: Referring Physician Address: Address: [address] [place] [phone] [place] Name: Masha Mullins RN Position: [facility] Nurse Member Role: [facility] Nurse Care Team Related Persons Name: LUCAS MARTIN Address: [address] [place], [phone]
--- OUTSIDE RECORDS SUMMARY | 2024-07-05 14:22 | XMS_ITS | Continuity of Care Document ---
Author Organization [facility] Address [address] [address] [facility] [address] [phone] Care Team Providers Care Fire Lieutenant Marine Name Role Phone Karen Díaz Primary Care Physician Encounter [facility] Financial Number [id number] Date(s): 04/20/24 - 04/20/24 Leann Davison [facility] [address] [phone] Discharge Disposition: Home or Self Care Allergies, Adverse Reactions, Alerts Substance Criticality Severity Reaction Reaction Severity Status gabapentin Physical aggres ada: aggressive or combative to self and others (for example, hits self, throws objects, punches, dangerous maneuvers with wheelchair or other objects) Combative reaction Active Assessment and Plan Future Appointments Appointment Date:04/24/2024 01:30:00 PM Scheduled Provider:Karen Díaz DO Location:[facility] Med Appointment Type:[facility] EP Established Patient Appointment Date:05/11/2024 08:45:00 AM Scheduled Provider:Vladimir Duke MD Location:[facility] Sleep Med Appointment Type:[facility] EP CPAP Established Patient Immunizations Given and Recorded Vaccine Date Status Refusal Reason SARS-CoV-2 (COVID-19) mRNA BNT-162b2 vax 04/24/21 Recorded SARS-CoV-2 (COVID-19) mRNA BNT-162b2 vax 04/03/21 Recorded Medications Adderall 10 mg oral tablet 10 mg, 1 tablet(s), Oral, bid, 60 tablet(s), Tablet(s), 0, 0, Route to Pharmacy Electronically, [id number], [id number], 02/10/24, 176, cm, 02/10/24 10:50:00 CDT, Height, 143.18, kg, 02/10/24 10:50:00 CDT, Weight Start Date: 02/10/24 Status: Ordered albuterol 90 mcg/inh inhaler 2 puff(s), Inhalation, [id number], PRN, 1 each, Inhaler, 11, 11, shortness of breath, Route to Pharmacy Electronically, [facility] #[id number][id number], 170, cm, 01/02/2021 0936, Height, 137.8, kg,01/02/2021 0936, Weight Start Date: 01/02/21 Status: Ordered DULoxetine 60 mg oral capsule 60 mg, 1 capsule(s), Oral, daily, 30 capsule(s), Capsule(s), 5, 5, Route to Pharmacy Electronically, [place] [address] [place] [facility], [id number], 176, cm, 02/10/24 10:50:00 CDT, Height, 143.18, kg, 02/10/24 10:50:00 CDT, Weight Start Date: 02/10/24 Status: Ordered ibuprofen 200 mg oral tablet 2-4 tablets, Oral, [id number], PRN, 120 tablet(s), Tablet(s), 0, for pain Start Date: 03/14/23 Status: Ordered levothyroxine 75 mcg (0.075 mg) oral tablet 1 tablet(s), Oral, daily before breakfast, 30 tablet(s), 5, 5, Route to Pharmacy Electronically, [place] [address] [place] [facility], [id number], 176, cm, 02/10/24 10:50:00 CDT, Height, 143.18, kg, 02/10/24 10:50:00 CDT, Weight Start Date: 02/10/24 Status: Ordered Gauri 0.25mg-35mcg oral tablet 1 tablet(s), Oral, daily, 84 tablet(s), 3, 3, Route to Pharmacy Electronically, [place] [address] [place] [facility], [id number], 176, cm, 12/09/23 10:52:00 CDT, Height, 143.8, kg, 12/09/23 10:52:00 CDT, Weight Start Date: 12/09/23 Status: Ordered omeprazole 20 mg oral delayed release tablet 20 mg, 1 tablet(s), Oral, daily, 90 tablet(s), Tab EC, 3, 3, Route to Pharmacy Electronically, [facility] [address] [place] [facility], [id number], 176, cm, 02/10/24 10:50:00 CDT, Height, 143.18, kg, 02/10/24 10:50:00 CDT, Weight Start Date: 02/10/24 Status: Ordered Vitamin D3 5000 intl units oral capsule See Instructions, 30 capsule(s), 0, TAKE 1 CAPSULE BY MOUTH DAILY, Route to Pharmacy Electronically, [facility] [address], [id number], Instructions Replace Required Details, 176,cm, 02/10/24 10:50:00 [...] Completed Excision of uterine polyp [address] [place] [address] Social History Social History Type Response Alcohol Former alcohol user, Household alcohol concerns: No. Employment/School Employed, Work/Schoo l description: [employer]. Workplace hazards: Sitting too much. Home/Environment Lives [...] Event Display: Patient Provided Clipboard Authored Date: [id number] Ambulatory Comprehensive Intake Ambulatory Comprehensive IntakeOriginating Source: PATIENTOriginating Author: KAYLA Cerna Submission Date: October 03, 2020 9:45:07 AM -06:00 KAYLA METZGER : 1980 Sex: Female MRN(s): [id number] Ambulatory Comprehensive Intake Question Response Advance Directive Advance Directive Date Location of Advance Directive Type of Advance Directive Patient has Court Appointed Guardian No Location of Court Appointed Guardian Documentation Legal Guardian Medical Power of Promotional Model Name Patient Requests Counseling Regarding Advance Directives History of Falling in Last 3 Months, Including Since Admission No Impaired Judgment/Lack of Safety Awareness No Agitation No Impaired Gait, Shuffle, Wide Base, Unsteady Walk No Ever Experience Dizziness or Vertigo No Ever Wet or Soil Yourself on Way to Bathroom No Medical Devices None Treating Plant Supervisor Card Other Treating Plant Supervisor Details Radiology Testing Barriers/Precautions None Menstrual Status Last Menstrual Period 2020-09-12 Previous LMP Date Last Menstrual Period Description Irregular periods, Heavy flow Menarche Onset Menarche Frequency Menarche Length Menstrual Comments PAP result HPV Coping Stressors Emotional Support Available Do You Receive Comfort From Spiritual Practices No Adventist Preference Spiritual Practice Comments Weight Change >10lbs [...] voices No Marital or relationship problems No electrical integrator awakenings Yes Chief Complaint Need new primary [...] Member Role: Primary Care Physician Address: Address: [id number] [place] [address] [address] [phone] [place] Care Team Related Persons Name: LUCAS MARTIN Address: [address], [phone]
--- OUTSIDE RECORDS SUMMARY | 2024-07-05 14:22 | XMS_ITS | Continuity of Care Document ---
Author Organization [facility] Address [address] [place] [phone] Care Team Providers Care Show Card Writer Name Role Phone Karen Díaz Primary Care Physician Encounter [facility] Financial Number [id number] Date(s): 05/06/23 - 05/06/23 [facility] [address] [phone] Encounter Diagnosis LEVI (obstructive sleep apnea)(Discharge Diagnosis) - 05/06/23 Discharge Disposition: Home or Self Care Attending Physician: Vladimir Duke MD Allergies, Adverse Reactions, Alerts Substance Reaction Severity Status gabapentin Physical aggression: aggressive or combative to self and others (for example, hits self, throws objects, punches, dangerous maneuvers with wheelchair or other objects) Combative reaction Active Assessment and Plan Future Appointments Appointment Date:06/10/2023 11:00:00 AM Scheduled Provider:Karen Díaz DO Location:[facility] Med Appointment Type:CC EP Established Patient Appointment Date:05/11/2024 08:45:00 AM Scheduled Provider:Vladimir Duke MD Location:[facility] Sleep Med Appointment Type:[facility] EP CPAP Established Patient Immunizations Given and Recorded Vaccine Date Status Refusal Reason SARS-CoV-2 (COVID-19) mRNA BNT-162b2 vax 04/24/21 Recorded SARS-CoV-2 (COVID-19) mRNA BNT-162b2 vax 04/03/21 Recorded Medications albuterol 90 mcg/inh inhaler 2 puff(s), Inhalation, [id number], PRN, 1 each, Inhaler, 11, 11, shortness of breath, Route to Pharmacy Electronically, [facility]/pharmacy #[id number], NCPDP_[id number], 170, cm, 01/02/2021 0936, Height, 137.8, kg,01/02/2021 0936, Weight Start Date: 01/02/21 Status: Ordered DULoxetine 60 mg oral capsule 60 mg, 1 capsule(s), Oral, daily, 30 capsule(s), Capsule(s), 5, 5, [id number], [id number], 168, cm, 03/14/23 13:03:00 CDT, Height, 1 40.5, kg, 03/14/23 13:03:00 CDT, Weight Start Date: 03/14/23 Status: Ordered ibuprofen 200 mg oral tablet 2-4 tablets, Oral, [id number], PRN, 120 tablet(s), Tablet(s), 0, for pain Start Date: 03/14/23 Status: Ordered levothyroxine 75 mcg (0.075 mg) oral tablet 1 tablet(s), Oral, daily before breakfast, 30 tablet(s), 5, 5, [id number], [id number], 168, cm, 03/14/23 13:03:00 CDT, Height, 140.5, kg, 03/14/23 13:03:00 CDT, Weight Start Date: 03/14/23 Status: Ordered Gauri 0.25mg-35mcg oral tablet 1 tablet(s), Oral, daily, 84 tablet(s), 3, 3, [id number], NCPDP_[id number], 176, cm, 09/07/2022 1456, Height, 137.2, kg, 09/07/2022 1456, Weight Start Date: 09/10/22 Status: Ordered omeprazole 20 mg oral delayed release tablet 20 mg, 1 tablet(s), Oral, daily, 0 Start Date: 02/17/22 Status: Ordered Vitamin D3 5000 intl units oral capsule See Instructions, 30 capsule(s), 17, TAKE 1 CAPSULE BY MOUTH DAILY, Route to Pharmacy Electronically, [facility] STORE [id number], [id number], Instructions Replace Required Details, 170, cm, 04/07/23 [...] Completed [facility] Most recent to oldest [Reference Range]: 1 Peripheral Pulse Rate [60-100 bpm] 82 bp m (05/06/23 9:27 AM) Blood Pressure [89-139/60-90 mm Hg] 124/ 84mm Hg (05/06/23 9:27 AM) Height 176 cm (05/06/23 9:27 AM) Weight 141 kg (05/06/23 9:27 AM) Social History Social History Type Response Alcohol Former alcohol user, Household alcohol concerns: No. Substance Abuse Never drug user, Gildajannet duong substance abuse concerns: No. Smoking Status Former smoker;Never; Tobacco Cessation Counseling Requested N/A; Concerns about tobacco use in household: No; Smoker in household: No; Number of years: 2; entered on: 05/07/22 Sex Hospital Discharge Instructions Patient Education 05/06/2023 09:53:02 SLEEP APNEA, Obstructive (Adult) Sleep Apnea [Adult] Sleep Apnea (also called ???Obstructive Sleep Apnea?? ) is a condition where there are long pauses between breaths during sleep. This usually occurs when the tissues and muscles in the back of the throat relax too much during sleep. This causes the air passage in your throat to narrow or block off completely. Breathing slows down or stops completely and you then wake up, take a few good breaths and fall back to sleep again. There may be 10-60 such awakenings during a night. This prevents you from getting to the deeper stages of sleep that are needed for the body to rest and recover its strength. During sleep, loud snoring, noisy breathing or gasping sounds are common. The sleep disturbance causes daytime symptoms such as difficulty getting up in the morning, need for daytime naps, irritability, poor concentration and attention. Causes Of Sleep Apnea ?? The main risk factor for this kind of sleep apnea is excessive weight gain. Fatty tissue gathersalong the sides of the throat causing the air passage to be more narrow than normal. ?? Increasing age is another factor due to softening of the air passage. ?? Certain neck and jaw shapes are prone to a narrow air passage (such as receding chin) ?? Enlarged tonsils and adenoids may block the air passage when lying down ?? Severe nasal congestion ?? Use of alcohol or sedatives relaxes the muscles in the throat. ?? Smoking can cause inflammation and swelling in the upper air passages and make this problem worse. Home Care Sleep with your head and neck in a straight or neutral position. If the neck falls back or forward too far this can block breathing. Limit the use of alcohol and sedatives in the evening. Follow Up with your doctor as advised. If you are overweight, talk to your doctor about a weight loss program. If you smoke, talk to your doctor about ways to help you stop. Get Prompt Medical Attention if any of the following occur: ?? Longer pauses than usual ?? Unable to awaken ?? Seizure ?? [id number] [facility], [address] [place] [address], [place] [address]. All rights reserved. This information is not intended as a substitute for professional medical care. Always follow your healthcare professional's instructions. Note * Event Display: Authorization to Treat Authored Date: * Event Display: Authorization to Treat Authored Date: * Ingrid Payton MA/MR: PERFORM Event Display: Patient Provided Clipboard Authored Date: [id number] Sleep Assessment FormOriginating Source: Patient Originating Author: KAYLA METZGER Submitted On: May 06, 2023 7:21:22 AM -05:00 ?? Current PAP Equipment Provider: Luz Maria Johnson ?? Current Mask Style: Under the Nose ?? Name of Mask (if known) AirFit F30 ?? Do You Use a Chin Strap No ?? What are all the things you dislike about your mask and machine? It will develop leaks around the mask as I move at night. This will wake me up when air is blowing into my eyes. It also will sometimes develop enough condensation in the tubing to start ???popping?? and I have to disconnect it and dump water out. ?? What benefits have you seen since starting PAP? No Longer Snoring , Waking up less at night , Improved mood ?? How many nights a week do you put on your PAP mask? 6-7 ?? How many mornings do you wake with it still on? 6-7 ?? Is the air pressure: Just right? ?? Compared to before you started PAP, when you wake up do you now experience increased No Issues ?? When you wake up, is your nose: No Issues ?? When you wake up, is your mouth dry? Yes ?? Do you have dry eyes after sleeping with PAP? Yes ?? Do you have air leaks by your eyes or chin? Yes ?? Is the mask causing any irritation to your skin or face Yes ?? Do you snore with the mask on? No ?? Do you have headaches when you wake up? No ?? Do you use the humidifier on your PAP machine? Yes ?? Humidifier Settings ?? Reguarding your tubing, do you feel it Has too much condensation/water ?? Have you requested PAP supply refills from your equipment company every 6 months? No ?? How often are you washing your mask? Inconsistently ?? How often are you washing your tubing? Inconsistently ?? How often do you empty your humidifier? Inconsistently ?? How often are you changing/cleaning your filter? Inconsistently ?? What is your Bedtime? 7pm during the week, varies on weekends ?? Usual wake up time? 3am on weekdays, varies on weekends ?? How long does it take you to fall asleep? 10-30 minutes ?? How many times a night do you awaken each night? 0-3 Unsure as to why I wake up ?? Reasons for waking up ?? Do you ever experience any of the following symptoms in your legs Restlessness ?? Do you take naps? Yes ?? Do you wear PAP during naps? No ?? Do you fall asleep unintentionally? No ?? Do you feel refreshed on awakening? Not Sure ?? Comments Sleep Assessment: Sometimes I feel better and more awake after a nap or night???s sleep, but not always. ?? Sitting and reading Slight chance ?? Watching TV Slight chance ?? Sitting, inactive in a public place (such as a theater or a meeting) No chance ?? As a passenger in a car for an hour without a break Slight chance ?? Lying down to rest in the afternoon when circumstances permit High chance ?? Sitting and talking to someone No chance ?? Sitting quietly after a lunch without alcohol No chance ?? In a car, while stopped for a few minutes in traffic No chance ?? Do you have difficulty concentrating on the things you do because you are sleepy or tired? No difficulty ?? Do you generally have difficulty remembering things, because you are sleepy or tired? No difficulty ?? Do you have difficulty operating a motor vehicle for short distances (less than 100 miles) because you become sleepy or tired? No difficulty ?? Do you have difficulty operating a motor vehicle for long distances (greater than 100 miles) because you become sleepy or tired? No difficulty ?? Do you have difficulty visiting with your family or friends in their home because you become sleepyor tired? No difficulty ?? Has your relationship with family, friends or work colleagues been affected because you are sleepy or tired? No ?? Do you have difficulty watching a movie or video because you become sleepy or tired? Yes, a little difficulty ?? Do you have difficulty being as active as you want to be in the evening because you are sleepy or tired? Yes, a little difficulty ?? Do you have difficulty being as active as you want to be in the morning because you are sleepy or tired? Yes, a little difficulty ?? Has your desire for intimacy or sex been affected because you are sleepy or tired? Yes, a little difficulty ?? * Event Display: Patient Provided Clipboard Authored Date: [id number] Sleep Assessment Form Sleep Assessment FormOriginating Source: PATIENTOriginating Author: KAYLA Cerna Submission Date: May 06, 2023 7:21:26 AM -05:00 KAYLA MARTIN : 1980 Sex: Female MRN(s): [id number] Sleep Assessment Form Question Response Current PAP Equipment Provider: Luz Maria Johnson Current Mask Style: Under the Nose Name of Mask (if known) AirFit F30 Do You Use a Chin Strap No What are all the things you dislike about your mask and machine? It will develop leaks around the mask as I move at night. This will wake me up when air is blowing into my eyes. It also will sometimes develop enough condensation in the tubing to start popping and I have to disconnect it and dump water out. What benefits have you seen since starting PAP? No Longer Snoring, Waking up less at night, Improved mood How many nights a week do you put on your PAP mask? 6-7 How many mornings do you wake with it still on? 6-7 Is the air pressure: Just right? Compared to before you started PAP, when you wake up do you now experience increased No Issues When you wake up, is your nose: No Issues When you wake up, is your mouth dry? Yes Do you have dry eyes after sleeping with PAP? Yes Do you have air leaks by your eyes or chin? Yes Is the mask causing any irritation to your skin or face Yes Do you snore with the mask on? No Do you have headaches when you wake up? No Do you use the humidifier on your PAP machine? Yes Humidifier Settings Reguarding your tubing, do you feel it Has too much condensation/water Have you requested PAP supply refills from your equipment company every 6 months? No How often are you washing your mask? Inconsistently How often are you washing your tubing? Inconsistently How often do you empty your humidifier? Inconsistently How often are you changing/cleaning your filter? Inconsistently What is your Bedtime? 7pm during the week, varies on weekends Usual wake up time? 3am on weekdays, varies on weekends How long does it take you to fall asleep? 10-30 minutes How many times a night do you awaken each night? 0-3 Unsure as to why I wake up Reasons for waking up Do you ever experience any of the following symptoms in your legs Restlessness Do you take naps? Yes Do you wear PAP during naps? No Do you fall asleep unintentionally? No Do you feel refreshed on awakening? Not Sure Comments Sleep Assessment: Sometimes I feel better and more awake after a nap or night's sleep, butnot always. Sitting and reading Slight chance Watching TV Slight chance Sitting, inactive in a public place (such as a theater or a meeting) No chance As a passenger in a car for an hour without a break Slight chance Lying down to rest in the afternoon when circumstances permit High chance Sitting and talking to someone No chance Sitting quietly after a lunch without alcohol No chance In a car, while stopped for a few minutes in traffic No chance Do you have difficulty concentrating on the things you do because you are sleepy or tired? No difficulty Do you generally have difficulty remembering things, because you are sleepy or tired? No difficulty Do you have difficulty operating a motor vehicle for short distances (less than 100 miles) because you become sleepy or tired? No difficulty Do you have difficulty operating a motor vehicle for long distances (greater than 100 miles) because you become sleepy or tired? No difficulty Do you have difficulty visiting with your family or friends in their home because you become sleepyor tired? No difficulty Has your relationship with family, friends or work colleagues been affected because you are sleepy or tired? No Do you have difficulty watching a movie or video because you become sleepy or tired? Yes, a little difficulty Do you have difficulty being as active as you want to be in the evening because you are sleepy or tired? Yes, a little difficulty Do you have difficulty being as active as you want to be in the morning because you are sleepy or tired? Yes, a little difficulty Has your desire for intimacy or sex been affected because you are sleepy or tired? Yes, a little difficulty * Event Display: Patient Provided Clipboard Authored Date: [id number] Ambulatory Comprehensive Intake Ambulatory Comprehensive IntakeOriginating Source: PATIENTOriginating Author: KAYLA Cerna Submission Date: October 03, 2020 9:45:07 AM -06:00 KAYLA METZGER DOB: 1980 Sex: Female MRN(s): [id number] Ambulatory Comprehensive Intake Question Response Advance Directive Advance Directive Date Location of Advance Directive Type of Advance Directive Patient has Court Appointed Guardian No Location of Court Appointed Guardian Documentation Legal Guardian Medical Power of Jig And Fixture Builder Apprentice Name Patient Requests Counseling Regarding Advance Directives History of Falling in Last 3 Months, Including Since Admission No Impaired Judgment/Lack of Safety Awareness No Agitation No Impaired Gait, Shuffle, Wide Base, Unsteady Walk No Ever Experience Dizziness or Vertigo No Ever Wet or Soil Yourself on Way to Bathroom No Medical Devices None Supervisor Gate Services Card Other Supervisor Gate Services Details Radiology Testing Barriers/Precautions None Menstrual Status Last Menstrual Period 2020-09-12 Previous LMP Date Last Menstrual Period Description Irregular periods, Heavy flow Menarche Onset Menarche Frequency Menarche Length Menstrual Comments PAP result HPV Coping Stressors Emotional Support Available Do You Receive Comfort From Spiritual Practices No Cheondoism Preference Spiritual Practice Comments Weight Change >10lbs [...] voices No Marital or relationship problems No line and frame poler awakenings Yes Chief Complaint Need new primary [...] back and knees since recent weight gain. Physician Outpatient Note * Vladimir Duke MD: PERFORM Event Display: Office/Clinic Note-Physician Authored Date: Patient Information Name:KAYLA MARTIN Address: [address] [place] [phone] Sex:Female Date of :1980 Emergency Contact:LUCAS MARTIN Location:[facility] Medicine Registration Date and Time:05/06/2023 09:31 CDT Primary Care Physician: Karen Díaz DO, Attending Physician: Vladimir Duke MD, Chief Complaint Pt is here for a follow up after getting a new APAP. ESS: 6 History of Present Illness LEVI with disrupted sleep. HSAT in 02/2022 with severe LEVI with 3% AHI of 47.2, a 4% AHI of 34.7, andan SaO2 low of 86%. APAP at 5 to 14 cwp. Using 5+ hours per night. Pressure averages 10.1 cwp with 95% of 11.8 cwp. AHI of 0.1. She has done better. Feels better. Less tired. Okay with current pressure. No issues driving.??Using??hybrid full mask. Leaks at times and??can wake her up. Had done a??nasal mask but trouble with mouth opening. Also trouble with condensation in tubing.?? Sleep Study Data?? Date of Baseline Sleep Study: 03/19/22 Baseline sleep study weight: 310.2 LBS Overall Apnea Hypopnea Index (AHI): 47.2 Supine AHI: 67.9 Lateral AHI: 39.3 Medicare Apnea Hypopnea Index (AHI): 34.7 Low SAO2: 86 % Sleep Study Comments: Watchpat Lateral data is is right side only FOSQ and ESS Score FOSQ Ca [place] Sleepiness Scale Score: 6 Adherence Data?? Sleep Therapy Machine Brand: [employer] Sleep Therapy Mode: Automatic Positive Airway Pressure (APAP) Pressure Settin-14 Adherence download start date: 04/06/2023 Adherence download end date: 05/05/2023 Percent days w/ device usage: 100 % Percent days w/ device usage >= 4 hrs: 73 % Average AHI per hour: 0.1 Pressure (95th percentile): 11.8 Leak (95th percentile): 5.5 Vitals and Measurements Vital Signs Height: 176 cm Height Inches Conversion: 69.3 Weight: 141 kg Weight in Pounds (kg conversion): 310.2 Body Surface Area: 2.6255 m2 Body Mass Index: 45.52 kg/m2 Systolic Blood Pressure: 124 mm Hg Diastolic Blood Pressure: 84 mm Hg Peripheral Pulse Rate: 82 bpm Oxygen Saturation: 99 % Physical Exam CONSTITUTIONAL:??Alert and cooperative. No apparent distress.?? EARS, NOSE AND THROAT:??Nares patent.?? SKIN:??No lesions or rashes.?? EYES:??Clear conjunctivae.?? NEUROLOGY:??Alert and oriented to person, place, time. Speech clear and fluent with normal content.PERRLA. EOMI.??Face is symmetric.??Strength??5/5. Gait and station normal.?? Assessment/Plan 1.??LEVI (obstructive sleep apnea) Reviewed download. Doing better with APAP at 5 to 14 cwp. She will decrease her humidity level. Shemay try a different mask though low residual leak per download. Educated and discussed the relationship of LEVI with HTN and weight management. Discussed that the patient should not drive or engage inany other hazardous activity if excessively tired. Follow up in 1 year. Problem List/Past Medical History Ongoing Allergic rhinitis [...] LEVI (obstructive sleep apnea) Osteoarthritis, hand Stress PatientStated Anxiety and depression Arthritis Asthma Depression Fibromyalgia Migraine headache Obesity Osteoarthritis PCOS (polycystic ovarian syndrome) Thyroid disease Historical BMI 45.0-49.9, adult Procedure/Surgical History ???Colonoscopy (2019)???Excision of uterine polyp (2015) Medications albuterol 90 mcg/inh inhaler, 2 puff(s), Inhalation, [id number], PRN, 11 refills DULoxetine 60 mg oral capsule, 60 mg= 1 capsule(s), Oral, daily, 5 refills ibuprofen 200 mg oral tablet, 2-4 tablets, Oral, [id number], PRN levothyroxine 75 mcg (0.075 mg) oral tablet, 1 tablet(s), Oral, daily before breakfast, 5 refills Gauri 0.25mg-35mcg oral tablet, 1 tablet(s), Oral, daily, 3 refills omeprazole 20 mg oral delayed release tablet, 20 mg= 1 tablet(s), Oral, daily Vitamin D3 5000 intl units oral capsule, See Instructions Allergies gabapentin??(Physical aggression: aggressive or combative to self and others (for example, hits self, throws objects, punches, dangerous maneuvers with wheelchair or other objects), Combative reaction) Social History Alcohol Former alcohol user, Household alcohol concerns: No., 03/14/2023 Employment/School 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 Workplace hazards: Sitting toomuch., 10/02/2020 Home/Environment Lives [...] ?Positive ?Snoring ?Father ?Positive ?Diabetes mellitus ? Immunizations Vaccine Date Status [id number]-8 (COVID-19) mRNA BNT-162b2 vax 04/24/2021 Recorded SARS-CoV-2 (COVID-19) mRNA BNT-162b2 vax 04/03/2021 Recorded influenza virus vaccine, live, trivalent - Not Given Patient Refuses Voice to Text Technology Disclaimer This note may contain text inserted via Dragon or other voice to text assistive technology and food and nutrition services assistant, variances may occur. Patient Care team information Care Team Personnel Name: Karen Díaz DO Position: Physician - Internal Medicine Member Role: Primary Care Physician Address: Address: [address] [place] [phone] Name: Anel ManP C Position: AMB COATER ASSOCIATE/PA Member Role: Nurse Practitioner Address: Address: [address] [place] [phone] [place] Name: Berenice Ivory [facility] Nurse Staff Position: Population Health Coordinator Member Role: Population Health Coordinator Care Team Related Persons Name: LUCAS MARTIN Address: [address] [facility], [phone]
--- OUTSIDE RECORDS SUMMARY | 2024-07-05 14:22 | XMS_ITS | Continuity of Care Document ---
Author Organization [facility] Address [address] [place] [id number] Care Team Providers Care Uptwist Spinner Name Role Phone Karen Díaz Primary Care Physician Encounter [facility] Financial Number [id number] Date(s): 05/25/23 - 05/25/[address] [id number] Discharge Disposition: Home or Self Care Attending Physician: Benoit Duke DO Admitting Physician: Benoit Duke DO Referring Physician: Karen Díaz DO Allergies, Adverse Reactions, Alerts Substance Reaction Severity Status gabapentin Physical aggression: aggressive or combative to self and others (for example, hits self, throws objects, punches, dangerous maneuvers with wheelchair or other objects) Combative reaction Active Assessment and Plan Future Appointments Appointment Date:06/10/2023 11:00:00 AM Scheduled Provider:Karen Díaz DO Location:[facility] Med Appointment Type:CC EP Established Patient Appointment Date:05/11/2024 08:45:00 AM Scheduled Provider:Vladimir Duke MD Location:[facility] Sleep Med Appointment Type:[facility] EP CPAP Established Patient Immunizations Given and Recorded Vaccine Date Status Refusal Reason SARS-CoV-2 (COVID-19) mRNA BNT-162b2 vax 04/24/21 Recorded SARS-CoV-2 (COVID-19) mRNA BNT-162b2 vax 04/03/21 Recorded Medications albuterol 90 mcg/inh inhaler 2 puff(s), Inhalation, [id number], PRN, 1 each, Inhaler, 11, 11, shortness of breath, Route to Pharmacy Electronically, [facility] #[id number], NCPDP_ID-[id number], 170, cm, 01/02/2021 0936, Height, 137.8, kg,01/02/2021 0936, Weight Start Date: 01/02/21 Status: Ordered DULoxetine 60 mg oral capsule 60 mg, 1 capsule(s), Oral, daily, 30 capsule(s), Capsule(s), 5, 5, [id number] [id number], 168, cm, 03/14/23 13:03:00 CDT, Height, 1 40.5, kg, 03/14/23 13:03:00 CDT, Weight Start Date: 03/14/23 Status: Ordered ibuprofen 200 mg oral tablet 2-4 tablets, Oral, [id number], PRN, 120 tablet(s), Tablet(s), 0, for pain Start Date: 03/14/23 Status: Ordered levothyroxine 75 mcg (0.075 mg) oral tablet 1 tablet(s), Oral, daily before breakfast, 30 tablet(s), 5, 5, [id number] [id number], 168, cm, 03/14/23 13:03:00 CDT, Height, 140.5, kg, 03/14/23 13:03:00 CDT, Weight Start Date: 03/14/23 Status: Ordered Gauri 0.25mg-35mcg oral tablet 1 tablet(s), Oral, daily, 84 tablet(s), 3, 3, [id number] PRPDP_ID-[id number], 176, cm, 09/07/2022 1456, Height, 137.2, kg, 09/07/2022 1456, Weight Start Date: 09/10/22 Status: Ordered omeprazole 20 mg oral delayed release tablet 20 mg, 1 tablet(s), Oral, daily, 0 Start Date: 02/17/22 Status: Ordered Vitamin D3 5000 intl units oral capsule See Instructions, 30 capsule(s), 17, TAKE 1 CAPSULE BY MOUTH DAILY, Route to Pharmacy Electronically, [id number], [id number], Instructions Replace Required Details, 170, cm, 04/07/23 [...] Completed Excision of uterine polyp [address] [place] [address] Social History Social History Type Response Alcohol Former alcohol user, Household alcohol concerns: No. Substance Abuse Never drug user, Gilda duong substance abuse concerns: No. Smoking Status Former smoker;Never; Tobacco Cessation Counseling Requested N/A; Concerns about tobacco use in household: No; Smoker in household: No; Number of years: 2; entered on: 05/07/22 Sex Note * Event Display: Authorization to Treat Authored Date: * Event Display: Authorization to Treat Authored Date: * Event Display: GI Lab Nursing/Anesthesia Notes * Event Display: GI Lab Nursing/Anesthesia Notes * Contributor_system, PROVATION: PERFORM Event Display: Esophagoscopy Authored Date: [id number] [facility] Endoscopy Department Patient Name: Marie Martin Admit Type: Outpatient Room: [facility] Gender: Female Attending MD: BENOIT DUKE , Procedure Date No Time: 05/25/2023 Date of : 1980 Referring MD: Karen Díaz DO Procedure: Upper GI endoscopy Indications: Dysphagia, Heartburn Impression: - No endoscopic esophageal abnormality to explain patient's dysphagia. Biopsied. - Normal stomach. - Normal examined duodenum. Recommendation: - Await pathology results. - Discharge patient to home. - Resume previous diet. - Continue present medications. - Thank you for the opportunity of participating in her care. Providers: BENOIT DUKE Medicines: Lidocaine IV 40 mgs, Propofol (Diprivan) IV 200 mgs Complications: No immediate complications. Estimated blood loss: Minimal. Estimated Blood Loss: Estimated blood loss was minimal. Procedure: Pre-Anesthesia Assessment: - ASA Grade Assessment: II - A patient with mild systemic disease. After obtaining informed consent, the endoscope was passed under direct vision. Throughout the procedure, the patient's blood pressure, pulse, and oxygen saturations were monitored continuously. The adult upper endoscope with dual focus was introduced through the mouth, and advanced to the second part of duodenum. The upper GI endoscopy was accomplished without difficulty. The patient tolerated the procedure well. Findings: No endoscopic abnormality was evident in the esophagus to explain the patient's complaint of dysphagia. Biopsies were taken with a cold forceps for histology. Estimated blood loss was minimal. The entire examined stomach was normal. The examined duodenum was normal. BENOIT DUKE, 05/25/2023 11:32:44 AM Electronically authenticated. Number of Addenda: 0 Note Initiated On: 05/25/2023 10:58 AM Procedure Code(s): --- Professional --- 87698 Diagnosis Code(s): --- Professional --- R13.10 R12 CPT copyright 2020 [employer]. All rights reserved. * Event Display: Esophagoscopy Authored Date: [id number] * Event Display: Physician Order AMB Authored Date: [id number] * Event Display: Patient Provided Clipboard Authored Date: [id number] Ambulatory Comprehensive Intake Ambulatory Comprehensive IntakeOriginating Source: PATIENTOriginating Author: MARIE Cerna Submission Date: October 03, 2020 9:45:07 AM -06:00 MARIE METZGER : 1980 Sex: Female MRN(s): [id number] Ambulatory Comprehensive Intake Question Response Advance Directive Advance Directive Date Location of Advance Directive Type of Advance Directive Patient has Court Appointed Guardian No Location of Court Appointed Guardian Documentation Legal Guardian Medical Power of Optometrist Owner Name Patient Requests Counseling Regarding Advance Directives History of Falling in Last 3 Months, Including Since Admission No Impaired Judgment/Lack of Safety Awareness No Agitation No Impaired Gait, Shuffle, Wide Base, Unsteady Walk No Ever Experience Dizziness or Vertigo No Ever Wet or Soil Yourself on Way to Bathroom No Medical Devices None Fusing Machine Operator Card Other Fusing Machine Operator Details Radiology Testing Barriers/Precautions None Menstrual Status Last Menstrual Period 2020-09-12 Previous LMP Date Last Menstrual Period Description Irregular periods, Heavy flow Menarche Onset Menarche Frequency Menarche Length Menstrual Comments PAP result HPV Coping Stressors Emotional Support Available Do You Receive Comfort From Spiritual Practices No Sabianist Preference Spiritual Practice Comments Weight Change >10lbs [...] voices No Marital or relationship problems No physical security engineer awakenings Yes Chief Complaint Need new primary [...] Member Role: Primary Care Physician Address: Address: [address] [place] [address] [address] [place], [place] [id number] Name: Anel Man C Position: AMB NITROGEN OPERATOR/PA Member Role: Nurse Practitioner Address: Address: [address] [place] [address] [place] [phone] Name: Berenice Ivory Global Technical Writer Position: Population Health Coordinator Member Role: Population Health Coordinator Care Team Related Persons Name: LUCAS MARTIN Address: [address] DANIEL DURAN, [id number]
--- OUTSIDE RECORDS SUMMARY | 2024-07-05 14:22 | XMS_ITS | Patient Health Record ---
Author Organization [employer] [facility] Address [address] [place] [address] [place] [address] Care Team Providers Care Nanny Babysitter Name Role Phone Karen Díaz DO Primary Care Provider Benoit Novak Unavailable [phone] Allergies Allergen (clinical drug ingredient) Drug/Non Drug Allergy documented on EMR Reaction Allergy Type Onset Date Status gabapentin Gabapentin Unknown Drug Allergy Activ e Reason For Referral No Information Medications Medication SIG (Take, Route, Frequency, Duration) [...] been since you last smoked? 5-10 years Problems Problem Type SNOMED Code ICD Code Onset Dates Problem Status W/U Status Risk Notes Problem 51874157 Dysphagia (R13.10) Active confirmed Dysphagia for solids 1-2 times a month Problem 274800793 Chronic GERD (K21.9) Active confirmed Well controlled on omeprazole Encounters Encounter Location Date Provider Diagnosis [facility], [address] [place] [address] 11/01/2023 Benoit Duke [facility], [address] [place] [address] 11/29/2023 Benoit Duke Plan Of Treatment Pending Test Test Name Order Date Upper Endoscopy 03/25/2023 CALPROTECTIN, STOOL 03/25/2023 LACTOFERRIN, QL, STOOL 03/25/2023 Insurance Providers Payer Name Payer Address Payer Phone Subscriber Number Group Number Insured Name Patient Relationship to Insured Coverage Start Date Coverage End Date [employer] Choice Pos II [id number] [address] ANUJA Araujo [phone] [id number] rere [place]um[place] Spouse - patient is the spouse of the insured Medical (General) History Medical History History ICD Code Colon Polyps Hepatic Steatosis GERD Hemorrhoids Diverticulosis Hypothyroidism Hyperlipidemia Asthma Sleep Apnea Migraines PCOS Fibromyalgia Surgical History Surgery Date(Month/Year) Endoscopy 05/2023 Colonoscopy (Dr Tran) 04/2019 Excision of Uterine Polyp 2016
--- OUTSIDE RECORDS SUMMARY | 2024-07-05 14:22 | XMS_ITS ---
Author Organization [employer], [facility] Address [address] [place] [address] [address]. [address] [place] [address] Care Team Providers Care Component Design Engineer Name Role Phone [employer] Karen TEJEDA Primary Care Provider UnaBenoit Elias Unavailable [phone] REASON FOR VISIT Outstanding balance Encounters Encounter Location Date Provider Diagnosis [facility], [address] [place] [address] 11/29/2023 Benoit Duke Plan Of Treatment No Information Progress Notes * Marie JULIAN BDOB:[birth year] (43 yo F)Acc No.[id number]:11/29/2023 Patient:?Marie Julian :1980???Age:43 Y???Sex:Female Address:[facility] [place] [address] * true * Date:? 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
[2024-07-05 14:39] VITALS: BP 157/81; PULSE 94; RESP 15; TEMP 36.1; O2SAT 100
--- NOTE | 2024-07-05 15:13 | ED.URI ---
HPI - URI/Sore Throat General Chief Complaint: Upper Respiratory Infection Stated Complaint: Congestion/Cough/Headache Time Seen by Provider: 07/05/24 15:00 Source: patient, RN notes reviewed and old records reviewed Mode of arrival: ambulatory Limitations: no limitations History of Present Illness HPI Narrative: 44 year old female who presents to [facility] care with complaints of sore throat, cough, headache and nasal congestion and feeling fatigued which started on Tuesday. Patient reports that she has not had any known fevers, chills or sweats. Patient reports that she has been taking OTC cold and cough medication and states she does feel a little better today. Patient reports that she has missed 3 days of work due to her illness. MD elicited complaint: cough, sore throat, rhinorrhea, nasal congestion and other (headache) Onset (ago): day(s) (4) Consistency: constant Pain scale (0-10): 3 Able to tolerate fluids by mouth: Yes Treatments prior to arrival: cold medicine Related Data Home Medications ?Medication ?Instructions ?Recorded ?Confirmed ?Last Taken ?Type bupropion HCl 150 mg 24 hr tablet, mg PO 07/05/24 Unknown History extended release cholecalciferol (vitamin D3) 125 07/05/24 Unknown History mcg (5,000 unit) capsule dextroamphetamine-amphetamine 10 07/05/24 Unknown History mg tablet duloxetine 60 mg capsule,delayed mg PO 07/05/24 Unknown History release levothyroxine 75 mcg tablet mcg 07/05/24 Unknown History norgestimate 0.25 mg-ethinyl tablet 07/05/24 Unknown History estradiol 35 mcg tablet (Gauri) Allergies Allergy/AdvReac Type Severity Reaction Status Date / Time No Known Allergies Allergy Verified 07/05/24 14:49 Review of Systems Review of Systems: CONSTITUTIONAL: Reports malaise, no chills, sweats, or fever reports fatigue.. EYES: Denies visual changes, redness, or discharge. ENT: Reports rhinorrhea, congestion, sinus pain, no otalgia and positive for sore throat. CARDIOVASCULAR: Denies chest pain, palpitations, or edema. RESPIRATORY: Reports cough.? Denies dyspnea. GASTROINTESTINAL: Denies abdominal pain, nausea, vomiting, diarrhea SKIN: Denies rash or itching. MUSCULOSKELETAL: Denies myalgia. NEUROLOGIC:reports headache. All systems reviewed & are unremarkable except as noted in HPI and below PMFSH Past Medical History Medical History (Updated 07/07/24 @ 21:24 by Anjali Ball NP) ADHD (attention deficit hyperactivity disorder) Fibromyalgia PCOS (polycystic ovarian syndrome) Anxiety and depression Hypothyroidism GERD (gastroesophageal reflux disease) Social History Social History Smoking status: Smoker, status unknown Alcohol intake: unknown Substance use: unknown Gender identity (if verbalized by the patient): Female Comments At time of signature, agree with nursing past medical, surgical, social and family history. There is no relevant family history pertinent to the presenting complaint Exam Narrative: GENERAL: Well-appearing, well-nourished, obese, and in no acute distress. HEAD: Normocephalic EYES: PERRLA, conjunctivae clear ENT: Nares clear, turbinates edematous and erythematous, clear discharge, sinus pressure and headache,. Mucous membranes moist. TM pearly vyas with dull light reflex bilaterally; no tragal tenderness. Oropharynx erythematous without lesions. Tonsils not enlarged and without exudate, no drooling, no hoarseness, no trismus, uvula midline.post nasal drainage NECK: Supple. No lymphadenopathy CHEST: Clear to auscultation, breath sounds equal. No wheezing, rhonchi, rales, or stridor. No respiratory distress, speaks in full sentences.cough,SAO2 100% on room air HEART: Regular rate and rhythm. No murmur heard. SKIN: Warm, dry, no rash. NEURO: Alert and oriented x3. PSYCH: Normal mood and affect Course Course Emergency Course: Patient is aware of diagnosis, understands and agrees to treatment plan.? Anticipatory guidance given.? Patient agrees to follow-up as directed and is aware of reasons to seek care at the emergency department. Portions of this record may have been created with voice recognition software Level of Care: Express Care Visit Vital Signs Vital signs: Vital Signs Temperature 36.1 C L 07/05/24 14:39 Pulse Rate 94 07/05/24 14:39 Respiratory Rate 15 07/05/24 14:39 Blood Pressure 157/81 H 07/05/24 14:39 Pulse Oximetry 100 07/05/24 14:39 Oxygen Delivery Room Air 07/05/24 14:39 Temperature 36.1 C L 07/05/24 14:39 Pulse Rate 94 07/05/24 14:39 Respiratory Rate 15 07/05/24 14:39 Blood Pressure 157/81 H 07/05/24 14:39 Pulse Oximetry 100 07/05/24 14:39 Oxygen Delivery Room Air 07/05/24 14:39 Reviewed MDM - URI/Sore Throat MDM Narrative Medical decision making narrative: Differential diagnosis considered: Emery virus, strep pharyngitis, allergic rhinitis, upper respiratory tract infection, sinusitis, rhinosinusitis, nasopharyngitis. viral pharyngitis, otitis media, otitis externa, pneumonia, bronchitis, viral cough syndrome, viral syndrome, and influenza.? Exam findings show no acute concerns or changes; patient is non-toxic appearing and is in no distress.? Patient is appropriate for outpatient treatment and follow-up. Differential Diagnosis Differential diagnosis: Likely upper respiratory infection, sinusitis, viral infection, influenza and other (COVID) Medical Records Attestation: I reviewed the patient's medical records. Lab Data Attestation: I reviewed the patient's lab results. Lab results narrative: COVID antigen negative, Influenza A negative, Influenza B negative Labs: Lab Results 07/05/24 Range/Units 15:16 POC Influenza A Ag Negative (Negative) POC Influenza B Ag Negative (Negative) POC SARS CoV-2 Ag Negative (Negative) reviewed Critical Care Time Critical Care Time Critical Care Time: No Discharge Plan Discharge Clinical Impression: URI, acute Cough Qualifiers: Cough type: acute Qualified Code(s): R05.1 - Acute cough Patient Disposition: Home, Self-Care Condition: Stable Instructions: Antibiotic Form, Acute Cough (ED) Additional Instructions: Increase fluids especially juices and water Vlza-bdr-izutbfj cough and cold medicine of your choice for your symptoms Zyrtec Claritin or Gemini daily Steroids as directed--take with food heat to the face 20-30 minutes 4-6 times a day for pain Salt water gargles, throat lozenges or throat sprays as desired Antibiotic as directed--finished the medication If your symptoms persist, change or worsen significantly before you can contact your personal physician then please, without delay, go to the emergency department for further evaluation. Follow-up with PCP in 7-10 days or sooner if needed Follow up with PCP soon in regards to your blood pressure which is elevated above threshold for referral. Blood pressure above 120/80 may indicate pre-hypertension. Patient Language: Macanese Prescriptions: New azithromycin 250 mg tablet See Rx Instructions .ROUTE .COMPLEX Qty: 6 0RF Rx Instructions: For 250 mg dose pack: take 500 mg today (day 1), then 250 mg for 4 days (days 2-5) methylprednisolone [Medrol (Aayush)] 4 mg tablets,dose pack See Rx Instructions .ROUTE .COMPLEX Qty: 21 0RF Rx Instructions: orally per package directions No Action norgestimate-ethinyl estradiol [Gauri] 0.25-35 mg-mcg tablet dextroamphetamine-amphetamine 10 mg tablet levothyroxine 75 mcg tablet cholecalciferol (vitamin D3) 125 mcg (5,000 unit) capsule bupropion HCl 150 mg tablet extended release 24 hr PO duloxetine 60 mg capsule,delayed release(DR/EC) PO Follow-up/Referrals: PHYSICIAN NOT ON STAFF,NONSTAFF [Primary Care Provider] - Stand Alone Forms: Work/School Release IP Time of Disposition: 15:17 Quality [place] Coma Scale Eyes: Open Verbal: Oriented and Alert Motor: Follows Commands [place] Coma Total Score: 15
[2024-07-05 15:18] LABS: EDCOVIDSCREEN Negative (Negative); EDINFLUASCREEN Negative (Negative); EDINFLUBSCREEN Negative (Negative)
== END 2024-07-05 15:24 | disposition home or self-care (01) ==
PROVIDERS: Emergency Provider Registered Nurse
DX: J06.9 Acute upper respiratory infection, unspecified (principal); R05.1 Acute cough; Z20.822 Contact with and (suspected) exposure to COVID-19; M79.7 Fibromyalgia; E28.2 Polycystic ovarian syndrome; E03.9 Hypothyroidism, unspecified; K21.9 Gastro-esophageal reflux disease without esophagitis
CPT/HCPCS: 87426; 87804; 99213; G0463

== ENCOUNTER 2025-02-15 15:52 | Emergency (ER) | payer OTHER, SELFPAY ==
--- OUTSIDE RECORDS SUMMARY | 2025-02-15 15:54 | XMS_ITS ---
Author Organization [facility], [facility] Address [address] [place] [address] [address]. [address] [place] [address] Care Team Providers Care Cable Television Program Director Name Role Phone Lunakim[employer]leyfel[employer] Karen TEJEDA Primary Care Provider Benoit Novak Unavailable [phone] Allergies Allergen (clinical drug ingredient) Drug/Non Drug [...] years Encounters Encounter Location Date Provider Diagnosis [facility] [place] [address] 11/08/2023 Benoit Duke Plan Of Treatment No Information Progress Notes * Marie JULIAN BDOB:[birth year] (44 yo F)Acc No.[id number]:11/08/2023 Patient: Vidhi Marie CHOI Provider: Kyung Duke D.O. :1980 A ge:43 Y S ex:Female Date:11/08/2023 Address:[address] [place] [address] Roseanne Bishop, [id number] Pcp:Karen Díaz DO Subjective: * Chief Complaints: * 1 . Follow Up. * ROS: G I Bleeding: Melena N o. H ematochezia N o. H ematemesis?No. A nemia N o. G I-Stomach: Nausea/Emesis N o. P ain N o. P UD N o.?Anorexia N o. G I-Esophageal: Dysphagia N o. O dynophagia N o. C hest Pain?No. G ER Sx Y es. G I-Liver/GB: Jaundice N o. H epatitis N o. G allstones N o. P ancreatitis N o. G I-Colon: Colitis/IBS N o. D iarrhea N o. C onstipation?No. H emorrhoids Y es. G eneral/Constitutional: Fever N o. C hills N o. W eight Loss N o.? S kin: Rash N o. P ruritus N o. I cterus N o. P hotosensitivity N o. E NT: Diplopia N o. V isual Loss N o. T innitus N o. V ertigo N o. D eafness N o. P oor Dentition N o. H ematology: Easy Bruising N o. H emophilia N o. H ematologic Malignancy N o. L ymphadenopathy N o. H istory of [place] N o. A nemia?No. C ardiovascular: Palpitations N o. S yncope N o. P ND N o.?MASSEY N o. O rthopnea N o. C hest Pain N o. R espiratory: Cough N o. S putum Production N o. H emoptysis?No. W heezing Y es, Asthma. T B N o. S OB N o. N eurologic: Stroke N o. S eizure Disorder N o. T remor N o. P aralysis N o. S yncope N o. G enitourinary: Dysuria N o. P olyuria N o. I ncontinence N o. R enal Failure N o. H ematuria N o. M usculoskeletal: Joint Pain N o. S welling N o. S tiffness N o. M uscle Weakness N o. M yalgia N o. E ndocrine: Thyroid Disease Y es. D iabetes N o. P olyphagia N o. P olydipsia N o. P sychiatric: Delusions N o. H allucinations N o. S uicidal Ideations N o. A llergy/Immunology: Hives N o. C hronic Sinusitis N o. H istory of Anaphylaxis N o. * Medical History: C olon Polyps, Hepatic Steatosis, GERD, Hemorrhoids, Diverticulosis, Hypothyroidism, Hyperlipidemia, Asthma, Sleep Apnea, Migraines, PCOS, Fibromyalgia. * Surgical History: E ndoscopy 05/2023, Colonoscopy (Dr Tran) 04/2019, Excision of Uterine Polyp 2015. * Hospitalization/Major Diagno stic Procedure: D enies Past Hospitalization. * Family History: S iblings: Sister, diagnosed with Crohns disease with complication, unspecified gastrointestinal tract location. M aternal Grand Mother: diagnosed with Malignant neoplasm of colon, unspecified part of colon, Colon polyp. * Social History: T obacco Use: T obacco Use/Smoking A re you a f ormer smoker H ow long has it been since you last smoked??5-10 years Pack-Years: Quit 2018. D rugs/Alcohol: D o you Drink Alcohol?: No, quit 07/2018. Do you Smoke Marijuana?: No. * Medications: T aking Omeprazole , Taking DULoxetine HCl , Taking Levothyroxine Sodium , Taking Gauri , Taking OTC/Vitamins , Notes to Pharmacist: Ibuprofen, Vit D, Medication List reviewed and reconciled with the patient * Allergies: G abapentin. Objective: * Vitals: * Examination: P hysical Examination: GENERAL: A ppears stated age, in no apparent distress. SKIN: N o rash, ecchymoses, petechial, or telangiectasia.? HEENT: Normocephalic, EOMI, Nasal & buccal mucosa clear. NECK: Supple without masses., Normal Range of Motion, No jugular venous distention. LYMPH NODES: No cervical, supraclavicular, or axillary lymphadenopathy. CARDIAC: RRR without murmur, gallop, or rub. PULMONARY: Clear to auscultation and percussion bilaterally. ABDOMEN: B S positive, soft, non-tender, No masses, organomegaly, rebound, or ascites. EXTREMITIES: N o cyanosis, clubbing, or edema. NEUROLOGIC: A lert and oriented x3, No asterixis, Nonfocal examination. C QM Exceptions: Influenza Vaccine not administered: R feroz: M edical Reason T ype of Medical Reason: N ot indicated Pneumococcal Vaccine not administered: Demarcus redman: Vidhi edical Reason T ype of Medical Reason: N ot indicated Assessment: Plan: * Treatment: * Images: * Electronic signature of Samuel Duke DO on 02/15/2025 at 03:53 PM CDT Sign off status: Pending * Provider: Kyung Duke D.O. Date: 0 11/08/2023 Generated for Lucas washington/Nidia/Joy on: 0 02/15/2025 03:53 PM CDT
--- OUTSIDE RECORDS SUMMARY | 2025-02-15 15:54 | XMS_ITS ---
Author Organization [facility], [facility] Address [address] [place] [address] [address] [place] [address] Care Team Providers Care Warranty Manager Name Role Phone oPwerfelix Karen TEJEDA Primary Care Provider Benoit Novak Unavailable [phone] Allergies Allergen (clinical drug ingredient) Drug/Non Drug Allergy documented on EMR Reaction Allergy Type Onset Date Status gabapentin Gabapentin Unknown Drug Allergy Activ e REASON FOR VISIT Follow Up Medications Medication SIG (Take, Route, Frequency, Duration) Notes Start Date End Date Status Gauri Active OTC/Vitamins Ibuprofen, Vit D Active Omeprazole Active DULoxetine HCl Activ e Levothyroxine Sodium Active Social History Tobacco Use: Social History Observation Description Date Details (start date - stop date) Former Smoker NA - NA Tobacco Use/Smoking Question Answer Notes Are you a former smoker How long has it been since you last smoked? 1-5 years Encounters Encounter Location Date Provider Diagnosis [facility] [place] [address] 08/26/2023 Benoit Duke Plan Of Treatment No Information Progress Notes * Marie JULIAN BDOB:[birth year] (44 yo F)Acc No.[id number]:08/26/2023 Patient: Vidhi Marie CHOI Provider: Kyung Duke D.O. :1980 A ge:43 Y S ex:Female Date:08/26/2023 Address:[address] [place] [address] Roseanne Bishop, [id number] Pcp:Karen Díaz DO Subjective: * Chief Complaints: [...] Production N o. H emoptysis?No. W heezing N o. T B N o. S OB N [...] o. * Medical History: C olon Polyps, GERD, Hemorrhoids, Diverticulosis, Hypothyroidism, Hyperlipidemia, Asthma, Sleep Apnea, Migraines, PCOS, Fibromyalgia. * Surgical History: E ndoscopy 05/2023, Colonoscopy (Dr Tran) 04/2019, Excision of Uterine Polyp . * Hospitalization/Major Diagno stic Procedure: D enies [...] long has it been since you last smoked??1-5 years Pack-Years: Quit 2018. D rugs/Alcohol: D [...] and oriented x3, No asterixis, Nonfocal examination. Assessment: Plan: * Treatment: * Images: * Electronic signature of Samuel Duke DO on 02/15/2025 at 03:54 PM CDT Sign off status: Pending * Provider: Kyung Duke D.O. Date: 0 08/26/2023 Generated for Lucas washington/Nidia/Maggieitting on: 0 02/15/2025 03:54 PM CDT
--- OUTSIDE RECORDS SUMMARY | 2025-02-15 15:54 | XMS_ITS | Patient Health Record ---
Author Organization [facility] Address [address] [facility] [address] [place] [address] Care Team Providers Care Start Up Specialist Name Role Phone Lunakimberleyfelix Karen TEJEDA Primary Care Provider Benoit Novak Unavailable [phone] Allergies Allergen (clinical drug ingredient) Drug/Non Drug [...] Problem Status W/U Status Risk Notes Problem [id number] Dysphagia (R13.10) Active confirmed Dysphagia for solids 1-2 times a month Problem [id number] Chronic GERD (K21.9) Active confirmed Well controlled on omeprazole Plan Of Treatment Pending Test Test Name Order Date Upper Endoscopy 03/25/2023 CALPROTECTIN, STOOL 03/25/2023 LACTOFERRIN, QL, STOOL 03/25/2023 Insurance Providers Payer Name Payer Address Payer Phone Subscriber Number Group Number Insured Name Patient Relationship to Insured Coverage Start Date Coverage End Date [employer] E2 [address] [place]ujo [phone] [id number] rere [place] Spouse - patient is the spouse of the insured Medical (General) History Medical History History ICD Code Colon Polyps Hepatic Steatosis GERD Hemorrhoids Diverticulosis Hypothyroidism Hyperlipidemia Asthma Sleep Apnea Migraines PCOS Fibromyalgia Surgical History Surgery Date(Month/Year) Endoscopy 05/2023 Colonoscopy (Dr Tran) 04/2019 Excision of Uterine Polyp 2016
[2025-02-15 16:04] VITALS: BP 127/86; PULSE 85; RESP 16; TEMP 36.2; O2SAT 100
--- NOTE | 2025-02-15 16:31 | ED_ITS ---
HPI - URI/Sore Throat General Chief Complaint: Upper Respiratory Infection Stated Complaint: Sore Throat/Headache/Fever/Body Aches Time Seen by Provider: 02/15/25 16:31 Source: patient Mode of arrival: ambulatory Limitations: no limitations History of Present Illness HPI Narrative: 22 yo F presents with c/o cough, congestion, sore throat, fatigue for 4 days. Afebrile. Denies N/V. No CP or SOB. All systems reviewed and negative except as noted above. Related Data Home Medications ?Medication ?Instructions ?Recorded ?Confirmed ?Last Taken ?Type bupropion HCl 150 mg 24 hr tablet, mg PO 07/05/24 Unknown History extended release cholecalciferol (vitamin D3) 125 07/05/24 Unknown History mcg (5,000 unit) capsule dextroamphetamine-amphetamine 10 07/05/24 Unknown History mg tablet duloxetine 60 mg capsule,delayed mg PO 07/05/24 Unknown History release levothyroxine 75 mcg tablet mcg 07/05/24 Unknown History norgestimate 0.25 mg-ethinyl tablet 07/05/24 Unknown History estradiol 0.035 mg tablet (Gauri) Allergies Allergy/AdvReac Type Severity Reaction Status Date / Time No Known Allergies Allergy Verified 02/15/25 15:55 [facility] Past Medical History Medical History (Updated 02/15/25 @ 16:35 by Arabella Babcock NP) ADHD (attention deficit hyperactivity disorder) Fibromyalgia PCOS (polycystic ovarian syndrome) Anxiety and depression Hypothyroidism GERD (gastroesophageal reflux disease) Social History Social History Smoking status: Smoker, status unknown Alcohol intake: unknown Substance use: unknown Gender identity (if verbalized by the patient): Female Comments At time of signature, agree with nursing past medical, surgical, social and family history. There is no relevant family history pertinent to the presenting complaint. Exam Narrative: GENERAL: This is a well-nourished, well-developed patient, in no apparent distress. HEAD: normocephalic, atraumatic. EYES: PERRL. Sclera clear/white. Vision is grossly intact. EARS: External ears normal, auditory canals clear and without drainage, TMs normal without perforation. Hearing grossly intact. NOSE: External nose normal with no obvious nasal discharge, nares without redness, no rhinorrhea. THROAT: Mucous membranes moist, erythematous with mild swelling. no exudates. no findings concerning for tonsillar abscess. NECK: Neck supple, non-tender without lymphadenopathy, masses or thyromegaly. CARDIOVASCULAR: Regular rate and rhythm without murmurs, gallops, or rubs. RESPIRATORY: Clear to auscultation. Breath sounds equal bilaterally. No wheezes, rales, or rhonchi. SKIN: warm, Dry, intact with no suspicious lesions or rash, good texture and turgor. NEURO: awake, alert, and oriented to person, place and time. There were no obvious focal neurologic abnormalities. EXTREMITIES: No joint tenderness, effusion, or edema noted. Course Course Level of Care: Express Care Visit Vital Signs Vital signs: Vital Signs Temperature 36.2 C L 02/15/25 16:04 Pulse Rate 85 02/15/25 16:04 Respiratory Rate 16 02/15/25 16:04 Blood Pressure 127/86 02/15/25 16:04 Pulse Oximetry 100 02/15/25 16:04 Oxygen Delivery Room Air 02/15/25 16:04 Temperature 36.2 C L 02/15/25 16:04 Pulse Rate 85 02/15/25 16:04 Respiratory Rate 16 02/15/25 16:04 Blood Pressure 127/86 02/15/25 16:04 Pulse Oximetry 100 02/15/25 16:04 Oxygen Delivery Room Air 02/15/25 16:04 reviewed MDM - URI/Sore Throat MDM Narrative Medical decision making narrative: positive rapid strep. Will treat with amoxicillin. pt well appearing, nontoxic. Differential Diagnosis Differential diagnosis: Likely upper respiratory infection, sinusitis, viral infection, influenza and pharyngitis Discharge Plan Discharge Clinical Impression: Strep throat Patient Disposition: Home Condition: Stable Instructions: Antibiotic Form, Strep Throat (ED) Additional Instructions: Your strep test was positive today. Take take antibiotic as prescribed until gone. Change toothbrush after taking antibiotic for 24 hours. Take [id number] Tylenol or ibuprofen as directed on packaging to treat pain and fever. Drink at least 64 oz of water a day. See your primary care physician if symptoms are not improving. Patient Language: Ethiopian Prescriptions: New benzonatate 200 mg capsule 200 mg PO TID PRN (Reason: cough) Qty: 20 0RF amoxicillin 875 mg tablet 875 mg PO Q12H 10 Days Qty: 20 0RF No Action norgestimate-ethinyl estradiol [Gauri] 0.25-35 mg-mcg tablet dextroamphetamine-amphetamine 10 mg tablet levothyroxine 75 mcg tablet cholecalciferol (vitamin D3) 125 mcg (5,000 unit) capsule bupropion HCl 150 mg tablet extended release 24 hr PO duloxetine 60 mg capsule,delayed release(DR/EC) PO Follow-up/Referrals: UNKNOWN,DOCTOR [Primary Care Provider] - Stand Alone Forms: Work/School Release IP Time of Disposition: 16:37
[2025-02-15 16:34] LABS: EDCOVIDSCREEN Negative (Negative); EDINFLUASCREEN Negative (Negative); EDINFLUBSCREEN Negative (Negative); EDSTREPNEGPOS1 Positive (Negative)
== END 2025-02-15 16:40 | disposition home or self-care (01) ==
PROVIDERS: Emergency Provider Nurse Practitioner Family
DX: J02.0 Streptococcal pharyngitis (principal); Z20.822 Contact with and (suspected) exposure to COVID-19; E03.9 Hypothyroidism, unspecified; E28.2 Polycystic ovarian syndrome; M79.7 Fibromyalgia; K21.9 Gastro-esophageal reflux disease without esophagitis; F41.9 Anxiety disorder, unspecified; F32.A Depression, unspecified; F90.9 Attention-deficit hyperactivity disorder, unspecified type
CPT/HCPCS: 87426; 87804; 87880; 99213; G0463